=== PATIENT | female | born 2000 | race Hispanic/Latino ===

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

== ENCOUNTER 2020-08-26 11:30 | Emergency (ER) | payer OTHER, SELFPAY ==
--- OUTSIDE RECORDS SUMMARY | 2020-08-26 11:32 | XMS REPORT | Continuity of Care Document ---
:2000 Author Organization [facility] t Address [address] [place] [address] Care Team Providers Name Role Phone Lab, Juanpablo Attending Clinician Unavailable Problems This patient has no known problems. Allergies, Adverse Reactions, Alerts This patient has no known allergies or adverse reactions. Medications This patient has no known medications. Procedures This patient has no known procedures. Encounters Start End Encounter Admission Attending Care Care Encounter Source Date/Time Date/Time Type Type Clinicians Facility Department ID 2020-08-24 2020-08-24 Consulting Engineer Lab, [facility] [id number] 08:15:06 08:44:28 Visit Juanpablo PERIODICALS LIBRARY ASSISTANT [id number] [facility] [id number] MATERNAL [id number] & CHILD [address] [place] [address] Results This patient has no known results.
--- NOTE | 2020-08-26 13:00 | ER ---
Nurse's Notes [facility] Name: Sweta Carter Age: 20 yrs Sex: Female : 2000 Arrival Date: 08/26/2020 Time: 11:34 Bed 17 Private MD: Diagnosis: Acute laryngopharyngitis;Viral infection of unspecified site Presentation: 08/26 11:42 Chief complaint: Sinus congestion, sneezing, and sore throat x 2 days. 8 weeks hb , LMP 06/20. Coronavirus screen: Client presents with at least one sign or symptom that may indicate coronavirus-19. Standard/surgical mask placed on the client. Provider contacted for isolation considerations. Ebola Screen: No symptoms or risks identified at this time. Initial Sepsis Screen: Does the patient meet any 2 criteria? No. Patient's initial sepsis screen is negative. Does the patient have a suspected source of infection? No. Patient's initial sepsis screen is negative. Risk Assessment: Do you want to hurt yourself or someone else? Patient reports no desire to harm self or others. Onset of symptoms was August 25, 2020. 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 - Social history:: Smoking status: Patient denies any tobacco usage or history of. Screenin:15 Abuse screen: Denies threats or abuse. Denies injuries from another. Nutritional kg screening: No deficits noted. Tuberculosis screening: No symptoms or risk factors identified. Fall Risk None identified. No fall in past 12 months (0 pts). No secondary diagnosis (0 pts). No IV (0 pts). Ambulatory Aid- None/Bed Rest/Nurse Assist (0 pts). Gait- Normal/Bed Rest/Wheelchair (0 pts) Mental Status- Oriented to own ability (0 pts). Total Gee Fall Scale indicates No Risk (0-24 pts). Assessment: 12:13 General: Appears in no apparent distress. Behavior is calm, cooperative, appropriate kg for age, quiet. Pain: Complains of pain in neck Pain does not radiate. Pain currently is 7 out of 10 on a pain scale. at worst was 7 out of 10 on a pain scale. level that patient reports is acceptable is 4 out of 10 on a pain scale. Quality of pain is described as burning, aching, tender, Pain began 2-3 days ago. Is continuous. Neuro: No deficits noted. Level of Consciousness is awake, alert, obeys commands, Oriented to person, place, time, situation, Appropriate for age. Cardiovascular: No deficits noted. Respiratory: No deficits noted. Airway is patent Respiratory effort is even, unlabored, Breath sounds are clear bilaterally. GI: No deficits noted. : No deficits noted. EENT: Throat is reddened with gag reflex present, Reports pain in chin when swallowing Pain is 7 out of 10 on a pain scale. since 2 days ago sneezing. Derm: No deficits noted. Musculoskeletal: No deficits noted. Vital Signs: 11:42 BP 124 / 78; Pulse 68; Resp 16; Temp 97.8; Pulse Ox 100% on R/A; Pain 7/10; hb ED Course: 11:34 Patient arrived in ED. mr 11:35 Christian Sanz MD is Attending Physician. kdr 11:44 Triage completed. hb 11:44 Arm band placed on. hb 12:06 Yesenia Martell is Primary Nurse. kg 12:16 Patient has correct armband on for positive identification. Bed in low position. Call kg light in reach. Side rails up X 1. 13:10 No provider procedures requiring assistance completed. Patient did not have IV access kg during this emergency room visit. Administered Medications: No medications were administered Outcome: 13:00 Discharge ordered by . kdr 13:10 Discharged to home ambulatory. kg 13:10 Condition: good 13:10 Discharge instructions given to patient, Instructed on discharge instructions, follow up and referral plans. Demonstrated understanding of instructions, follow-up care. 13:11 Patient left the ED. kg Signatures: Christian Sanz MD MD [facility] Yaz Uribe mr DawnCaroline, RN RN Yesenia Martell kg
--- NOTE | 2020-08-26 13:01 | EDPHYS ---
Physician Documentation [facility] Name: Sweta Carter Age: 20 yrs Sex: Female : 2000 Arrival Date: 08/26/2020 Time: 11:34 Bed 17 Private MD: ED Physician Christian Sanz HPI: 08/26 11:52 This 20 yrs old Female presents to ER via Ambulatory with complaints of 8wks kdr , Sore Throat. 11:52 The patient presents with sore throat, dysphagia, of both solids and liquids. The kdr patient describes throat pain as constant, raw, scratchy. Onset: The symptoms/episode began/occurred gradually, 2 day(s) ago. Severity of symptoms: At their worst the symptoms were mild, in the emergency department the symptoms are unchanged. Modifying factors: The symptoms are alleviated by nothing, the symptoms are aggravated by fluids, foods, swallowing, Patient's oral intake status: good The patient has had contact with sick co-worker(s). Associated signs and symptoms: The patient has no apparent associated signs or symptoms. The patient has experienced a previous episode, approximately 2 years ago. The patient has not recently seen a physician. 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 - Social history:: Smoking status: Patient denies any tobacco usage or history of. ROS: 11:52 Constitutional: Negative for fever, chills, and weight loss, Eyes: Negative for injury, kdr pain, redness, and discharge, Neck: Negative for injury, pain, and swelling, Cardiovascular: Negative for chest pain, palpitations, and edema, Respiratory: Negative for shortness of breath, cough, wheezing, and pleuritic chest pain, Abdomen/GI: Negative for abdominal pain, nausea, vomiting, diarrhea, and constipation, Back: Negative for injury and pain, : Negative for injury, bleeding, discharge, and swelling, MS/Extremity: Negative for injury and deformity, Skin: Negative for injury, rash, and discoloration, Neuro: Negative for headache, weakness, numbness, tingling, and seizure activity. Psych: Negative for depression, anxiety, suicide ideation, homicidal ideation, and hallucinations, Allergy/Immunology: Negative for hives, rash, and allergies, Endocrine: Negative for neck swelling, polydipsia, polyuria, polyphagia, and marked weight changes, Hematologic/Lymphatic: Negative for swollen nodes, abnormal bleeding, and unusual bruising. 11:52 ENT: Positive for difficulty swallowing, Negative for injury or acute deformity, drainage from ear(s), ear pain, foreign body sensation, Gum pain hearing loss, Teeth pain tinnitus, nasal discharge, rhinorrhea, sinus congestion, sinus pain, dental pain, difficulty handling secretions, hoarseness, acute changes. Exam: 11:52 Constitutional: This is a well developed, well nourished patient who is awake, alert, kdr and in no acute distress. Head/Face: Normocephalic, atraumatic. Eyes: Pupils equal round and reactive to light, extra-ocular motions intact. Lids and lashes normal. Conjunctiva and sclera are non-icteric and not injected. Cornea within normal limits. Periorbital areas with no swelling, redness, or edema. Neck: Trachea midline, no thyromegaly or masses palpated, and no cervical lymphadenopathy. Supple, full range of motion without nuchal rigidity, or vertebral point tenderness. No Meningismus. Chest/axilla: Normal chest wall appearance and motion. Nontender with no deformity. No lesions are appreciated. Cardiovascular: Regular rate and rhythm with a normal S1 and S2. No gallops, murmurs, or rubs. Normal PMI, no JVD. No pulse deficits. Respiratory: Lungs have equal breath sounds bilaterally, clear to auscultation and percussion. No rales, rhonchi or wheezes noted. No increased work of breathing, no retractions or nasal flaring. Abdomen/GI: Soft, non-tender, with normal bowel sounds. No distension or tympany. No guarding or rebound. No evidence of tenderness throughout. Back: No spinal tenderness. No costovertebral tenderness. Full range of motion. 11:52 ENT: External ear(s): are unremarkable, Ear canal(s): Mouth: Lips: normal, moist, Oral mucosa: pink and intact, Gums: normal with healthy appearance, Tongue: is normal, Posterior pharynx: Tonsils: enlarged on the left, with erythema, with ulcerations, swelling, that is moderate, erythema. Vital Signs: 11:42 BP 124 / 78; Pulse 68; Resp 16; Temp 97.8; Pulse Ox 100% on R/A; Pain 7/10; hb MDM: 11:52 Data reviewed: vital signs, nurses notes, lab test result(s), radiologic studies. kdr Counseling: I had a detailed discussion with the patient and/or guardian regarding: the historical points, exam findings, and any diagnostic results supporting the discharge/admit diagnosis, lab results, radiology results. 13:00 Patient medically screened. kdr 08/26 11:52 Order name: Rapid Strep; Complete Time: 12:59 kdr 08/26 12:26 Order name: Throat Culture EDMS Administered Medications: No medications were administered Disposition: 08/26/20 13:00 Discharged to Home. Impression: Acute laryngopharyngitis, Viral infection of unspecified site. - Condition is Stable. - Discharge Instructions: Pharyngitis, [id number]. - Medication Reconciliation Form, Thank You Letter form. - Follow up: Private Physician; When: 2 - 3 days; Reason: If symptoms return, Further diagnostic work-up, Recheck today's complaints, Continuance of care, Re-evaluation by your physician. - Problem is new. - Symptoms are unchanged. Signatures: Dispatcher [employer] EDMS Christian Sanz MD MD kdr Caroline Dawn RN RN Yesenia Martell kg Corrections: (The following items were deleted from the chart) 13:11 13:00 08/26/2020 13:00 Discharged to Home. Impression: Acute laryngopharyngitis; Viral kg infection of unspecified site. Condition is Stable. Forms are Medication Reconciliation Form, Thank You Letter, Antibiotic Education, Prescription Opioid Use. Follow up: Private Physician; When: 2 - 3 days; Reason: If symptoms return, Further diagnostic work-up, Recheck today's complaints, Continuance of care, Re-evaluation by your physician. Problem is new. Symptoms are unchanged. kdr
[2020-08-26 13:16] VITALS: BP 124/78; TEMP 97.8; O2SAT 100
== END 2020-08-26 13:11 | disposition home or self-care (01) ==
LOC: ER 11:30
DX: O99.511 Diseases of the respiratory system complicating pregnancy, first trimester (principal); J06.0 Acute laryngopharyngitis; O98.511 Other viral diseases complicating pregnancy, first trimester; B34.9 Viral infection, unspecified; Z3A.08 8 weeks gestation of pregnancy
CPT/HCPCS: 87070; 87081; 99281

== ENCOUNTER 2023-11-19 15:47 | Emergency (ER) | payer OTHER ==
[2023-11-19 17:17] LABS: SARS-CoV-2 Antigen CONTROL BLUE LINE VIS/BG OK; SARS-CoV-2 Antigen Rapid Res Negative (Negative)
--- NOTE | 2023-11-19 18:14 | EDPHYS ---
Physician Documentation [facility] Name: Sweta Carter Age: 23 yrs Sex: Female : 2000 Arrival Date: 11/19/2023 Time: 15:47 Bed DIS2 Private MD: ED Physician Gerber Cardozo HPI: 11/18 16:17 This 23 yrs old Female presents to ER via Ambulatory with complaints of Covid kb Test, Sore Throat. 16:17 Pt is a 23 year old female who presents for covid and flu test. Reports sore throat kb that started this morning and she was exposed to covid and flu by her sister. Denies cough, congestion, fever, bodyaches, chills, shortness of breath. 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 - Infectious Disease History:: Denies. - Social history:: Smoking status: Patient denies any tobacco usage or history of. ROS: 16:17 Constitutional: As per HPI kb Exam: 16:17 Constitutional: This is a well developed, well nourished patient who is awake, alert, kb and in no acute distress. Head/Face: Normocephalic, atraumatic. ENT: Moist Mucous membranes Cardiovascular: Regular rate Respiratory: Respirations even and unlabored. No increased work of breathing. Talking in full sentences Skin: Warm, dry with normal turgor. Normal color. MS/ Extremity: Pulses equal, no cyanosis. Neurovascular intact. Full, normal range of motion. Neuro: Awake and alert, GCS 15, oriented to person, place, time, and situation. Moves all extremities. Normal gait. Vital Signs: 15:58 BP 133 / 93; Pulse 108; Resp 16; Temp 97; Pulse Ox 100% ; dd2 18:18 BP 131 / 75; Pulse 95; Resp 16; Pulse Ox 100% ; bp MDM: 15:54 Patient medically screened. kb 16:17 Differential diagnosis: flu, covid. Data reviewed: vital signs, nurses notes. kb 18:13 I considered the following discharge prescriptions or medication management in the emergency department I discussed and recommended Over The Counter medications, Antibiotics: At this time antibiotics are not recommended, Antivirals: At this time, antivirals are not recommended. Counseling: I had a detailed discussion with the patient and/or guardian regarding the historical points, exam findings, and any diagnostic results supporting the discharge/admit diagnosis, lab results, the need for outpatient follow up, a family practitioner, to return to the emergency department if symptoms worsen or persist or if there are any questions or concerns that arise at home. 11/18 16:00 Order name: Flu; Complete Time: 18:13 kb 11/18 16:00 Order name: SARS-COV-2 Antigen Rapid; Complete Time: 17:26 kb Administered Medications: No medications were administered Disposition Summary: 11/19/23 18:13 Discharge Ordered Notes: Location: Home Condition: Stable kb Diagnosis - Pain in throat kb Followup: kb - With: Emergency Department - When: As needed - Reason: Worsening of condition Followup: kb - With: Private Physician - When: 2 - 3 days - Reason: Recheck today's complaints, Continuance of care, Re-evaluation by your physician Discharge Instructions: - Discharge Summary Sheet kb - Sore Throat, [id number] kb Forms: - Medication Reconciliation Form kb - Antibiotic Education kb - Prescription Opioid Use kb - Patient Portal Instructions kb - Leadership Thank You Letter Signatures: Dispatcher [employer] EDNeyda Freedman, DRUMS TEACHER-C NGHIA-STEPHON Nieto, RN RN dd2 Corrections: (The following items were deleted from the chart) 16:00 16:00 Influenza Screen (A \T\ B)+BA.LAB.BRZ ordered. EDMS EDMS 16:00 16:00 SARS-COV-2 Antigen Rapid+I.LAB.BRZ ordered. EDMS EDMS
--- NOTE | 2023-11-19 18:14 | ER ---
Nurse's Notes [facility] Name: Sweta Carter Age: 23 yrs Sex: Female : 2000 Arrival Date: 11/19/2023 Time: 15:47 Bed DIS2 Private MD: Diagnosis: Pain in throat Presentation: 11/18 15:58 Chief complaint: Patient states: Pt c/o sore throat since this morning. States sister dd2 has covid. Coronavirus screen: sore throat. Ebola Screen: No symptoms or risks identified at this time. Initial Sepsis Screen: Does the patient meet any 2 criteria? No. Patient's initial sepsis screen is negative. Does the patient have a suspected source of infection? No. Patient's initial sepsis screen is negative. Risk Assessment: Do you want to hurt yourself or someone else? Patient reports no desire to harm self or others. Onset of symptoms was November 19, 2023. 15:58 Method Of Arrival: Ambulatory dd2 15:58 Acuity: RUTHIE 4 dd2 Triage Assessment: 16:02 General: Appears in no apparent distress. Behavior is calm, cooperative, appropriate dd2 for age. Pain: Complains of pain in sore throat. EENT: Reports sore throat . 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 - Infectious Disease History:: Denies. - Social history:: Smoking status: Patient denies any tobacco usage or history of. Screenin:15 [facility] ED Fall Risk Assessment (Adult) History of falling in the last 3 months, me1 including since admission No falls in past 3 months (0 pts) Confusion or Disorientation No (0 pts) Intoxicated or Sedated No (0 pts) Impaired Gait No (0 pts) Mobility Assist Device Used No (0 pt) Altered Elimination No (0 pt) Score/Fall Risk Level 0 - 2 = Low Risk Maintained a safe environment, Provided non-skid footwear, Hourly rounding (assess needs \T\ fall precautionary measures) done. Abuse screen: Denies threats or abuse. Nutritional screening: No deficits noted. Tuberculosis screening: No symptoms or risk factors identified. Assessment: 16:15 General: Appears comfortable, ill, well groomed, well developed, well nourished, me1 Behavior is calm, cooperative, appropriate for age, Reports sore throat. Exposed to covid and flu. Pain: Complains of pain in throat Pain does not radiate. Pain currently is 3 out of 10 on a pain scale. Quality of pain is described as tender, Pain began suddenly, Is continuous. Neuro: Level of Consciousness is awake, alert, obeys commands, Oriented to person, place, time, situation, Appropriate for age. Cardiovascular: Patient's skin is warm and dry. Respiratory: Airway is patent Trachea midline Respiratory effort is even, unlabored, Respiratory pattern is regular, symmetrical, Breath sounds are clear bilaterally. GI: No signs and/or symptoms were reported involving the gastrointestinal system. : No signs and/or symptoms were reported regarding the genitourinary system. EENT: Throat is pink. Derm: Skin is intact, is healthy with good turgor, Skin is pink, warm \T\ dry. Musculoskeletal: No signs and/or symptoms reported regarding the musculoskeletal system. Vital Signs: 15:58 BP 133 / 93; Pulse 108; Resp 16; Temp 97; Pulse Ox 100% ; dd2 18:18 BP 131 / 75; Pulse 95; Resp 16; Pulse Ox 100% ; bp ED Course: 15:52 Patient arrived in ED. mr 15:53 Neyda Infante, LISA is [facility]. kb 15:53 Gerber Cardozo MD is Attending Physician. kb 16:02 Triage completed. dd2 16:02 Arm band placed on right wrist. Patient placed in an exam room, on a stretcher, on dd2 pulse oximetry, Patient notified of wait time. 16:15 Patient has correct armband on for positive identification. Bed in low position. Call me1 light in reach. Side rails up X2. Provided Education on: POC. Verbalized understanding. . Client placed on continuous cardiac and pulse oximetry monitoring. NIBP monitoring applied. Pulse ox on. NIBP on. 16:15 No provider procedures requiring assistance completed. Patient did not have IV access me1 during this emergency room visit. 16:23 Carla Lira, RN is Primary Nurse. me1 Administered Medications: No medications were administered Medication: 16:15 VIS not applicable for this client. me1 Outcome: 18:13 Discharge ordered by . gibran 18:18 Discharged to home ambulatory, bp 18:18 Condition: stable 18:18 Discharge instructions given to patient, Instructed on discharge instructions, follow up and referral plans. Demonstrated understanding of instructions, follow-up care, 18:19 Patient left the ED. bp Signatures: Neyda Infante, TINNING MACHINE SET UP OPERATOR-C TINNING MACHINE SET UP OPERATOR-Ckb Yaz Uribe, Reg Reg mr James Henriquez, RN RN bp Carla Lira, RN RN me1 STEPHON FLOWERS RN RN dd2 Corrections: (The following items were deleted from the chart) 16:23 15:58 Chief complaint: Patient states: Pt c/o sore throat since this morning. States me1 sister has covid dd2
[2023-11-19 18:25] VITALS: TEMP 97; O2SAT 100
[2023-11-19 18:26] VITALS: BP 131/75
== END 2023-11-19 18:19 | disposition home or self-care (01) ==
LOC: ER 15:47
DX: R07.0 Pain in throat (principal); Z11.52 Encounter for screening for COVID-19
CPT/HCPCS: 36415; 87804; 87811

== ENCOUNTER 2023-12-24 21:12 | Emergency (ER) | payer OTHER ==
--- OUTSIDE RECORDS SUMMARY | 2023-12-24 21:22 | XMS REPORT | Continuity of Care Document ---
Author Name Unknown Address [address] [facility] [address] [place] [address] [facility] [address] [facility] [address] [place] [address] Care Team Providers Care Stna Name Role Phone PCP, PATIENT DOES NOT HAVE A Primary Care Physic mary Unavailable FRAN BENSON Attending Clinician Unavailable THERESE KINGSLEY Attending Clinician Unavailable THERESE KINGSLEY Attending Clinician Unavailable THERESE KINGSLEY Attending Clinician Unavailable BONITA GANN Attending Clinician UnavailBonita Joaquin CNM Attending Clinician TASHA MARROQUIN Attending Clinician Unavail able JOSELIN PARNELL Attending Clinician Unavailable Risk, Mim-Rqwdy-Ud/High Attending Clinician Unav ailable Joselin Nice Attending Clinician Nestor Naqvi NP Attending Clinician NAVNEET KHAN Attending Clinician Unav ailable NAVNEET KHAN Attending Clinician Unav ailable Ultrasound, Luis Attending Clinician UnavailNavneet Rebolledo MD Attending Clinician + NESTOR NAQVI Attending Clinician Unavail able NESTOR NAQVI Attending Clinician Unavail able Therese Kingsley MD Attending Clinician [phone] Risk, Xfz-Snqjw-Ep/High Attending Clinician Unav ailable [facility] Joselin K Attending Clinician [phone] Yarelis HUERTAS, Bonita Irvin Attending Clinician TESFAYE BOTELLO Attending Clinician Unavailable TESFAYE BOTELLO Attending Clinician Unavailable 1, [facility] Usg Room Attending Clinician Tesfaye Shelby MD Attending Clinician [phone] Akinsipe [facility], Tasha C Attending Clinician + Lab, [facility]samina Attending Clinician Unavailable HELADIO RESENDEZ Attending Clinician Unavailable Visit, [facility] Nurse Attending Clinician Unava ilable Doctor Unassigned, [place] Attending Clinician U navailable Za Carson Attending Clinician [phone] ZA JIANG Attending Clinician UnavailBRANDY Manzano Attending Clinician Unav ailable Delia Bazan MD, Brandy Attending Clinician + MARIA DOLORES MIRANDA Attending Clinician Unavail able EULA TORRES Attending Clinician Unavailable Eula Torres MD Attending Clinician [phone] Provider, [facility] Temp Attending Clinician Stephanie Keenan Carbajal MD Attending Clinician [phone] KEENAN LI Attending Clinician Unavailable Hattie Barragan Attending Clinician UnavailHeladio Ashraf MD Attending Clinician [phone] ALBERTO GUPTA Attending Clinician UnavailAlberto Ferreira MD Attending Clinician [phone] 3, [facility] Usg Room Attending Clinician UnavailNAVNEET Rebolledo Admitting Clinician Unav ailNAVNEET Hussein Admitting Clinician Unav ailable BRANDY MELISSA Admitting Clinician Unav ailable Delia Bazan MD, Brandy Admitting Clinician + EULA TORRES Admitting Clinician Unavailable Eula Torres MD Admitting Clinician [phone] Payers Payer Name Policy Type Policy Number Effective Date Expirati on Date Source N-Sided [facility] JOSE MCDANIEL [id number] 2023 00:00:00 Problems Condition Name Condition Details Condition Category Status Onset Date Resolution Date Last Treatment Date Treating Clinician Comments Source Chronic hypertensi on affecting Chronic hypertensi on affecting Disease Active 6-18 00:00: 00 [facility] Pregestati onal diabetes mellitus, 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 Failed 3hr gtt Order echo, q4wk usg starting at 26 weeks when medicaid approved [facility] Supervisio n of high-risk Supervisio n of high-risk Disease Active 3- 00:00: 00 [facility] History of pre-eclamp alberta History of pre-eclamp [place]ber[place] Disease Active 3-22 00:00: 00 [facility] Multiparit y Multiparit y Disease Active 3-22 00:00: 00 [facility] fever fever Disease Active 2020-04 2-02 00:00: 00 [facility] Obesity (BMI 30-39.9) Obesity (BMI 30-39.9) Disease Active 2020-04-24 00:00: 00 [facility] Obesity in Obesity in Disease Active 2020-04 124 00:00: 00 [facility] Obesity affecting Obesity affecting Disease Active 2020-0424 00:00: 00 [facility] GDM (gestation al diabetes mellitus) GDM (gestation al diabetes mellitus) Disease Active 9-20 00:00: 00 [facility] 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 Sister, had genetic counselin g 2020, declines this [facility] Lipoma Lipoma Disease Active 2014- 1-15 00:00: 00 [facility] Polyhydram nios, antepartum complicati on Polyhydram nios, antepartum complicati on Disease Resolve d 8-13 00:00: 00 2023-11-26 00:00:00 2023-11-26 16:52:22 [facility] Glucose tolerance test abnormal Glucose tolerance test abnormal Disease Resolve d 3-25 00:00: 00 2023-08-08 00:00:00 2023-08-08 10:05:50 Overview: Formattin g of this note might be different from the original. Pending 3hr gtt [facility] History of gestationa l diabetes mellitus (GDM) History of gestationa l diabetes mellitus (GDM) Disease Resolve d 9-20 00:00: 00 2023-08-08 00:00:00 2023-08-08 10:05:52 [facility] Other general counseling and advice for contracept amee management Other general counseling and advice for contracept amee management Disease Resolve d 1-12 00:00: 00 2023-06-27 00:00:00 2023-06-27 10:45:09 [facility] Severe anemia Severe anemia Disease Resolve d 2020-04 2-03 00:00: 00 2023-06-27 00:00:00 2023-06-27 10:45:04 Overview: Formattin g of this note might be different from the original. See note from 03/09/21. Repeat CBC for 0800 to confirm Hgb < 7 so that patient can decide if she desires transfusi on. [facility] Retained placenta or membranes Retained placenta or membranes Disease Resolve d 2020-04 2-02 00:00: 00 2023-06-27 00:00:00 2023-06-27 10:45:07 [facility] fever fever Disease Resolve d 2020-04 2-02 00:00: 00 2023-06-27 00:00:00 2023-06-27 10:45:08 [facility] (spontaneo us vaginal delivery) (spontaneo us vaginal delivery) Disease Resolve d 2020-04 2-02 00:00: 00 2021-03-28 00:00:00 2021-03-28 11:03:13 [facility] Single live Single live Disease Resolve d 2020-04 2-02 00:00: 00 2021-03-28 00:00:00 2021-03-28 11:03:15 [facility] Acute blood loss anemia Acute blood loss anemia Disease Resolve d 2020-04 2-02 00:00: 00 2021-03-28 00:00:00 2021-03-28 11:04:22 [facility] hemorrhage hemorrhage Disease Resolve d 2020-04 2- 00:00: 00 2021-03-28 00:00:00 2021-03-28 11:04:26 [facility] Obstetrica l laceration Obstetrica l laceration Disease Resolve d 2020-04 2-02 00:00: 00 2021-03-28 00:00:00 2021-03-28 11:04:24 [facility] Preeclamps ia Preeclamps ia Disease Resolve d 2020-04 1 00:00: 00 2021-03-28 00:00:00 2021-03-28 11:33:44 [facility] 37 weeks gestation of 37 weeks gestation of Disease Resolve d 2020-04 1 00:00: 00 2021-03-28 00:00:00 2021-03-28 11:02:42 [facility] 36 weeks gestation of 36 weeks gestation of Disease Resolve d 2020-0424 00:00: 00 2021-03-28 00:00:00 2021-03-28 11:02:41 [facility] Insufficie nt care in third trimester Insufficie nt care in third trimester Disease Resolve d 2020-04 1-09 00:00: 00 2021-03-28 00:00:00 2021-03-28 11:04:12 [facility] Elevated blood pressure reading without diagnosis of hypertensi on Elevated blood pressure reading without diagnosis of hypertensi on Disease Resolve d 2020-0 7-05 00:00: 00 2021-03-28 00:00:00 2021-03-28 11:04:18 [facility] Supervisio n of high-risk Supervisio n of high-risk Disease Resolve d 0 5-13 00:00: 00 2021-03-28 00:00:00 2021-03-28 11:03:14 [facility] Obesity in Obesity in Disease Resolve d 2020-0 5-13 00:00: 00 2021-03-28 00:00:00 2021-03-28 11:04:10 [facility] Abnormal maternal glucose tolerance, antepartum Abnormal maternal glucose tolerance, antepartum Disease Resolve d 0 5-14 00:00: 00 2021-02-28 00:00:00 2021-02-28 09:28:50 [facility] Allergies, Adverse Reactions, Alerts Allergy Name Allergy Type Status Severity Reaction(s) Onset Date Inactive Date Treating Clinician Comments Source NO KNOWN ALLERGIE S Drug Class Active [facility] Social History Social Habit Start Date Stop Date Quantity Comments Source ASSERTION 2023-05-02 00:00:00 [facility] Exposure to SARS-CoV-2 (event) Not sure [facility] Alcoholic beverage intake 2023-12-23 00:00:00 2023-12-23 00:00:00 Current non-drinker of alcohol (finding) [facility] Alcohol intake 2023-08-08 00:00:00 2023-08-08 00:00:00 Current non-drinker of alcohol (finding) [facility] History of Social function 2023-06-27 00:00:00 2023-06-27 00:00:00 [facility] Tobacco use and exposure 2023-06-27 00:00:00 2023-06-27 00:00:00 Smokeless tobacco non-user [facility] Tobacco Comment 2023-06-27 00:00:00 2023-06-27 00:00:00 No smoke exposure [facility] Sex assigned at 2000 00:00:00 2000 00:00:00 [facility] Smoking Status Start Date Stop Date Source Never smoked tobacco [facility] Medications Ordered Medication Name Filled Medication Name Start Date Stop Date Current Medication? Ordering Clinician Indication Dosage Frequency Signature (SIG) Comments Components Source Iron Fum & P-FA-Vit B & C No.9 (INTEGRA PLUS) 125 mg iron- 1 mg Cap 12-22 00:00: 00 Yes [id number] 1{capsu le} Take 1 capsule by mouth in the morning. [facility] insulin regular human (NOVOLIN R REGULAR U100 INSULIN) 100 unit/mL injection 11-12 00:00: 00 Yes [id number] inject 16 Units under the skin daily with breakfast AND 12 Units with evening meal. [facility] insulin NPH (NOVOLIN N NPH U-100 INSULIN) 100 unit/mL injection 11-12 00:00: 00 Yes [id number] 32U inject 32 Units under the skin daily with breakfast. [facility] Insulin Syringe-Nee dle U-100 1 mL 31 gauge x 5/16 Syrg 11-12 00:00: 00 Yes [id number] Use as directed [facility] aspirin 81 mg EC tablet 10-07 00:00: 00 04-06 05:59 :00 Yes [id number] 81mg Take 1 tablet by mouth in the morning for 180 days. [facility] diphenhydrA MINE (BENADRYL) tablet 25 mg 09-09 02:01: 00 09-09 02:17 :00 No 25mg 25 mg, Oral, ONCE, 1 dose, On Fri09/09/23 at 2115, Routine [facility] metoclopram godfrey HCl (REGLAN) tablet 10 mg 09-09 02:01: 00 09-09 02:17 :00 No 10mg 10 mg, Oral, ONCE, 1 dose, On Fri09/09/23 at 2115, Routine [facility] acetaminoph en (TYLENOL) tablet 1,000 mg 09-09 01:30: 00 09-09 01:34 :00 No 1000mg 1,000 mg, Oral, ONCE, 1 dose, On Fri09/09/23 at 2030, Routine [facility] metoclopram godfrey HCl 5 mg tablet 09-08 00:00: 00 Yes [id number] 5mg Take 1 tablet by mouth every 6 (six) hours as needed (Headache) . [facility] aspirin 81 mg EC tablet 08-07 00:00: 00 Yes [id number] 9100 81mg Take 1 tablet by mouth in the morning. [facility] Blood-Gluco se Meter (FREESTYLE LITE METER) Kit 07-06 00:00: 00 Yes [id number] Check blood glucose 4x daily [facility] lancets (FREESTYLE LANCETS) 28 gauge Misc 07-06 00:00: 00 Yes [id number] Check glucose 4x daily [facility] blood sugar diagnostic (FREESTYLE LITE STRIPS) strip 07-06 00:00: 00 Yes [id number] Check blood glucose 4x daily [facility] proMETHazin e 25 mg tablet 06-26 00:00: 00 Yes [id number] 25mg Take 1 tablet by mouth every 6 (six) hours as needed for Nausea and Vomiting (N/V). [facility] aka49-xqqm- folic acid 29 mg iron- 1 mg per tablet 06-26 00:00: 00 Yes [id number] 1{tbl} Take 1 tablet by mouth in the morning. [facility] ferrous sulfate 325 mg (65 mg iron) tablet 2020-04 00:00: 00 Yes [id number] 325mg Take 1 tablet by mouth 3 (three) times daily with meals. [facility] Immunizations Ordered Immunization Name Filled Immunization Name Date Status Comments Source TDAP 2021-01-11 00:00:00 Completed [facility] HPV 2011-09-23 00:00:00 Completed [facility] Meningococcal Vaccine 2011-09-23 00:00:00 Completed [facility] TDAP 2011-09-23 00:00:00 Completed [facility] HPV 2011-05-27 00:00:00 Completed [facility] Influenza Virus Vaccine 2011-05-27 00:00:00 Completed [facility] HPV 2010-03-14 00:00:00 Completed [facility] Influenza Virus Vaccine 2010-03-14 00:00:00 Completed [facility] Varicella (varivax)(chicken pox) 2006-07-07 00:00:00 Completed [facility] HEPATITIS A 2005-11-21 00:00:00 Completed [facility] HEPATITIS A 2004-12-25 00:00:00 Completed [facility] DTAP 2004-10-09 00:00:00 Completed [facility] MMR 2004-10-09 00:00:00 Completed [facility] Polio (IPV/OPV) 2004-10-09 00:00:00 Completed [facility] Hep B, Adol or Pedi Dosage 2002-05-28 00:00:00 Completed [facility] Pneumococcal 7 Conjugate, PCV7 (Prevnar7) 2002-05-28 00:00:00 Completed [facility] DTAP 2001-09-22 00:00:00 Completed [facility] HIB 4 Dose Schedule 2001-09-22 00:00:00 Completed [facility] MMR 2001-06-24 00:00:00 Completed [facility] Polio (IPV/OPV) 2001-06-24 00:00:00 Completed [facility] Varicella (varivax)(chicken pox) 2001-06-24 00:00:00 Completed [facility] DTAP 2000 00:00:00 Completed [facility] HIB 4 Dose Schedule 2000 00:00:00 Completed [facility] Hep B, Adol or Pedi Dosage 2000 00:00:00 Completed [facility] Pneumococcal 7 Conjugate, PCV7 (Prevnar7) 2000 00:00:00 Completed [facility] DTAP 2000 00:00:00 Completed [facility] HIB 4 Dose Schedule 2000 00:00:00 Completed [facility] Pneumococcal 7 Conjugate, PCV7 (Prevnar7) 2000 00:00:00 Completed [facility] Polio (IPV/OPV) 2000 00:00:00 Completed [facility] DTAP 2000 00:00:00 Completed [facility] HIB 4 Dose Schedule 2000 00:00:00 Completed [facility] Pneumococcal 7 Conjugate, PCV7 (Prevnar7) 2000 00:00:00 Completed [facility] Polio (IPV/OPV) 2000 00:00:00 Completed [facility] Hep B, Adol or Pedi Dosage 2000 00:00:00 Completed [facility] Hep B, Adol or Pedi Dosage Unknown Completed [facility] HPV Unknown Completed [facility] HPV Unknown Completed [facility] Influenza Virus Vaccine Unknown Completed [facility] Influenza Virus Vaccine Unknown Completed [facility] MMR Unknown Completed [facility] MMR Unknown Completed [facility] Pneumococcal 7 Conjugate, PCV7 (Prevnar7) Unknown Completed [facility] Pneumococcal 7 Conjugate, PCV7 (Prevnar7) Unknown Completed [facility] Pneumococcal 7 Conjugate, PCV7 (Prevnar7) Unknown Completed [facility] Pneumococcal 7 Conjugate, PCV7 (Prevnar7) Unknown Completed [facility] Polio (IPV/OPV) Unknown Completed [facility] Polio (IPV/OPV) Unknown Completed [facility] Polio (IPV/OPV) Unknown Completed [facility] Polio (IPV/OPV) Unknown Completed [facility] Varicella (varivax)(chicken pox) Unknown Completed [facility] TDAP Unknown Completed [facility] Varicella (varivax)(chicken pox) Unknown Completed [facility] HPV Unknown Completed [facility] Meningococcal Vaccine Unknown Completed [facility] TDAP Unknown Completed [facility] DTAP Unknown Completed [facility] DTAP Unknown Completed [facility] DTAP Unknown Completed [facility] DTAP Unknown Completed [facility] DTAP Unknown Completed [facility] HIB 4 Dose Schedule Unknown Completed [facility] HIB 4 Dose Schedule Unknown Completed [facility] HIB 4 Dose Schedule Unknown Completed [facility] HIB 4 Dose Schedule Unknown Completed [facility] HEPATITIS A Unknown [facility] HEPATITIS A Unknown Completed [facility] Hep B, Adol or Pedi Dosage Unknown Completed [facility] Hep B, Adol or Pedi Dosage Unknown Completed [facility] Hep B, Adol or Pedi Dosage Unknown Completed [facility] HPV Unknown Completed [facility] HPV Unknown Completed [facility] Influenza Virus Vaccine Unknown Completed [facility] Influenza Virus Vaccine Unknown Completed [facility] MMR Unknown Completed [facility] MMR Unknown Completed [facility] Pneumococcal 7 Conjugate, PCV7 (Prevnar7) Unknown Completed [facility] Pneumococcal 7 Conjugate, PCV7 (Prevnar7) Unknown Completed [facility] Pneumococcal 7 Conjugate, PCV7 (Prevnar7) Unknown Completed [facility] Pneumococcal 7 Conjugate, PCV7 (Prevnar7) Unknown Completed [facility] Polio (IPV/OPV) Unknown Completed [facility] Polio (IPV/OPV) Unknown Completed [facility] Polio (IPV/OPV) Unknown Completed [facility] Polio (IPV/OPV) Unknown Completed [facility] Varicella (varivax)(chicken pox) Unknown Completed [facility] TDAP Unknown Completed [facility] DTAP Unknown Completed [facility] DTAP Unknown Completed [facility] DTAP Unknown Completed [facility] DTAP Unknown Completed [facility] DTAP Unknown Completed [facility] HIB 4 Dose Schedule Unknown Completed [facility] HIB 4 Dose Schedule Unknown Completed [facility] HIB 4 Dose Schedule Unknown Completed [facility] HIB 4 Dose Schedule Unknown Completed [facility] HEPATITIS A Unknown [facility] HEPATITIS A Unknown Completed [facility] Hep B, Adol or Pedi Dosage Unknown Completed [facility] Hep B, Adol or Pedi Dosage Unknown Completed [facility] Hep B, Adol or Pedi Dosage Unknown Completed [facility] HPV Unknown Completed [facility] HPV Unknown Completed [facility] Influenza Virus Vaccine Unknown Completed [facility] Influenza Virus Vaccine Unknown Completed [facility] MMR Unknown Completed [facility] MMR Unknown Completed [facility] Pneumococcal 7 Conjugate, PCV7 (Prevnar7) Unknown Completed [facility] Pneumococcal 7 Conjugate, PCV7 (Prevnar7) Unknown Completed [facility] Pneumococcal 7 Conjugate, PCV7 (Prevnar7) Unknown Completed [facility] Pneumococcal 7 Conjugate, PCV7 (Prevnar7) Unknown Completed [facility] Polio (IPV/OPV) Unknown Completed [facility] Polio (IPV/OPV) Unknown Completed [facility] Polio (IPV/OPV) Unknown Completed [facility] Polio (IPV/OPV) Unknown Completed [facility] Varicella (varivax)(chicken pox) Unknown Completed [facility] TDAP Unknown Completed [facility] DTAP Unknown Completed [facility] DTAP Unknown Completed [facility] DTAP Unknown Completed [facility] DTAP Unknown Completed [facility] DTAP Unknown Completed [facility] HIB 4 Dose Schedule Unknown Completed [facility] HIB 4 Dose Schedule Unknown Completed [facility] HIB 4 Dose Schedule Unknown Completed [facility] HIB 4 Dose Schedule Unknown Completed [facility] HEPATITIS A Unknown Completed [facility] HEPATITIS A Unknown Completed [facility] Hep B, Adol or Pedi Dosage Unknown Completed [facility] Hep B, Adol or Pedi Dosage Unknown Completed [facility] Hep B, Adol or Pedi Dosage Unknown Completed [facility] HPV Unknown Completed [facility] HPV Unknown Completed [facility] Influenza Virus Vaccine Unknown Completed [facility] Influenza Virus Vaccine Unknown Completed [facility] MMR Unknown Completed [facility] MMR Unknown Completed [facility] Pneumococcal 7 Conjugate, PCV7 (Prevnar7) Unknown Completed [facility] Pneumococcal 7 Conjugate, PCV7 (Prevnar7) Unknown Completed [facility] Pneumococcal 7 Conjugate, PCV7 (Prevnar7) Unknown Completed [facility] Pneumococcal 7 Conjugate, PCV7 (Prevnar7) Unknown Completed [facility] Polio (IPV/OPV) Unknown Completed [facility] Polio (IPV/OPV) Unknown Completed [facility] Polio (IPV/OPV) Unknown Completed [facility] Polio (IPV/OPV) Unknown Completed [facility] Varicella (varivax)(chicken pox) Unknown Completed [facility] TDAP Unknown Completed [facility] DTAP Unknown Completed [facility] DTAP Unknown Completed [facility] DTAP Unknown Completed [facility] DTAP Unknown Completed [facility] DTAP Unknown Completed [facility] HIB 4 Dose Schedule Unknown Completed [facility] HIB 4 Dose Schedule Unknown Completed [facility] HIB 4 Dose Schedule Unknown Completed [facility] HIB 4 Dose Schedule Unknown Completed [facility] HEPATITIS A Unknown Completed [facility] HEPATITIS A Unknown Completed [facility] Hep B, Adol or Pedi Dosage Unknown [facility] [facility], Adol or Pedi Dosage Unknown Completed [facility] Hep B, Adol or Pedi Dosage Unknown Completed [facility] HPV Unknown Completed [facility] HPV Unknown Completed [facility] Influenza Virus Vaccine Unknown Completed [facility] Influenza Virus Vaccine Unknown Completed [facility] MMR Unknown Completed [facility] MMR Unknown Completed [facility] Pneumococcal 7 Conjugate, PCV7 (Prevnar7) Unknown Completed [facility] Pneumococcal 7 Conjugate, PCV7 (Prevnar7) Unknown Completed [facility] Pneumococcal 7 Conjugate, PCV7 (Prevnar7) Unknown Completed [facility] Pneumococcal 7 Conjugate, PCV7 (Prevnar7) Unknown Completed [facility] Polio (IPV/OPV) Unknown Completed [facility] Polio (IPV/OPV) Unknown Completed [facility] Polio (IPV/OPV) Unknown Completed [facility] Polio (IPV/OPV) Unknown Completed [facility] Varicella (varivax)(chicken pox) Unknown Completed [facility] TDAP Unknown Completed [facility] DTAP Unknown Completed [facility] DTAP Unknown Completed [facility] DTAP Unknown Completed [facility] DTAP Unknown Completed [facility] DTAP Unknown Completed [facility] HIB 4 Dose Schedule Unknown Completed [facility] HIB 4 Dose Schedule Unknown Completed [facility] HIB 4 Dose Schedule Unknown Completed [facility] HIB 4 Dose Schedule Unknown Completed [facility] HEPATITIS A Unknown Completed [facility] HEPATITIS A Unknown Completed [facility] Hep B, Adol or Pedi Dosage Unknown Completed [facility] Hep B, Adol or Pedi Dosage Unknown Completed [facility] Hep B, Adol or Pedi Dosage Unknown Completed [facility] HPV Unknown Completed [facility] HPV Unknown Completed [facility] Influenza Virus Vaccine Unknown Completed [facility] Influenza Virus Vaccine Unknown Completed [facility] MMR Unknown Completed [facility] MMR Unknown Completed [facility] Pneumococcal 7 Conjugate, PCV7 (Prevnar7) Unknown Completed [facility] Pneumococcal 7 Conjugate, PCV7 (Prevnar7) Unknown Completed [facility] Pneumococcal 7 Conjugate, PCV7 (Prevnar7) Unknown Completed [facility] Pneumococcal 7 Conjugate, PCV7 (Prevnar7) Unknown Completed [facility] Polio (IPV/OPV) Unknown Completed [facility] Polio (IPV/OPV) Unknown Completed [facility] Polio (IPV/OPV) Unknown Completed [facility] Polio (IPV/OPV) Unknown Completed [facility] Varicella (varivax)(chicken pox) Unknown Completed [facility] TDAP Unknown Completed [facility] DTAP Unknown Completed [facility] DTAP Unknown Completed [facility] DTAP Unknown Completed [facility] DTAP Unknown Completed [facility] DTAP Unknown Completed [facility] HIB 4 Dose Schedule Unknown Completed [facility] HIB 4 Dose Schedule Unknown Completed [facility] HIB 4 Dose Schedule Unknown Completed [facility] HIB 4 Dose Schedule Unknown Completed [facility] HEPATITIS A Unknown Completed [facility] HEPATITIS A Unknown Completed [facility] Hep B, Adol or Pedi Dosage Unknown Completed [facility] Hep B, Adol or Pedi Dosage Unknown Completed [facility] Hep B, Adol or Pedi Dosage Unknown Completed [facility] HPV Unknown Completed [facility] HPV Unknown Completed [facility] Influenza Virus Vaccine Unknown Completed [facility] Influenza Virus Vaccine Unknown Completed [facility] MMR Unknown Completed [facility] MMR Unknown Completed [facility] Pneumococcal 7 Conjugate, PCV7 (Prevnar7) Unknown Completed [facility] Pneumococcal 7 Conjugate, PCV7 (Prevnar7) Unknown Completed [facility] Pneumococcal 7 Conjugate, PCV7 (Prevnar7) Unknown Completed [facility] Pneumococcal 7 Conjugate, PCV7 (Prevnar7) Unknown Completed [facility] Polio (IPV/OPV) Unknown Completed [facility] Polio (IPV/OPV) Unknown Completed [facility] Polio (IPV/OPV) Unknown Completed [facility] Polio (IPV/OPV) Unknown Completed [facility] Varicella (varivax)(chicken pox) Unknown Completed [facility] TDAP Unknown Completed [facility] Varicella (varivax)(chicken pox) Unknown Completed [facility] HPV Unknown Completed [facility] Meningococcal Vaccine Unknown Completed [facility] TDAP Unknown Completed [facility] DTAP Unknown Completed [facility] DTAP Unknown Completed [facility] DTAP Unknown Completed [facility] DTAP Unknown Completed [facility] DTAP Unknown Completed [facility] HIB 4 Dose Schedule Unknown Completed [facility] HIB 4 Dose Schedule Unknown Completed [facility] HIB 4 Dose Schedule Unknown Completed [facility] HIB 4 Dose Schedule Unknown Completed [facility] HEPATITIS A Unknown Completed [facility] HEPATITIS A Unknown Completed [facility] Hep B, Adol or Pedi Dosage Unknown Completed [facility] Hep B, Adol or Pedi Dosage Unknown Completed [facility] Hep B, Adol or Pedi Dosage Unknown Completed [facility] HPV Unknown Completed [facility] HPV Unknown Completed [facility] Influenza Virus Vaccine Unknown Completed [facility] Influenza Virus Vaccine Unknown Completed [facility] MMR Unknown Completed [facility] MMR Unknown Completed [facility] Pneumococcal 7 Conjugate, PCV7 (Prevnar7) Unknown Completed [facility] Pneumococcal 7 Conjugate, PCV7 (Prevnar7) Unknown Completed [facility] Pneumococcal 7 Conjugate, PCV7 (Prevnar7) Unknown Completed [facility] Pneumococcal 7 Conjugate, PCV7 (Prevnar7) Unknown Completed [facility] Polio (IPV/OPV) Unknown Completed [facility] Polio (IPV/OPV) Unknown Completed [facility] Polio (IPV/OPV) Unknown Completed [facility] Polio (IPV/OPV) Unknown Completed [facility] Varicella (varivax)(chicken pox) Unknown Completed [facility] TDAP Unknown Completed [facility] DTAP Unknown Completed [facility] DTAP Unknown Completed [facility] DTAP Unknown Completed [facility] DTAP Unknown Completed [facility] DTAP Unknown Completed [facility] HIB 4 Dose Schedule Unknown Completed [facility] HIB 4 Dose Schedule Unknown Completed [facility] HIB 4 Dose Schedule Unknown Completed [facility] HIB 4 Dose Schedule Unknown Completed [facility] HEPATITIS A Unknown Completed [facility] HEPATITIS A Unknown Completed [facility] Hep B, Adol or Pedi Dosage Unknown Completed [facility] Hep B, Adol or Pedi Dosage Unknown Completed [facility] Hep B, Adol or Pedi Dosage Unknown Completed [facility] HPV Unknown Completed [facility] HPV Unknown Completed [facility] Influenza Virus Vaccine Unknown Completed [facility] Influenza Virus Vaccine Unknown Completed [facility] MMR Unknown Completed [facility] MMR Unknown Completed [facility] Pneumococcal 7 Conjugate, PCV7 (Prevnar7) Unknown Completed [facility] Pneumococcal 7 Conjugate, PCV7 (Prevnar7) Unknown Completed [facility] Pneumococcal 7 Conjugate, PCV7 (Prevnar7) Unknown Completed [facility] Pneumococcal 7 Conjugate, PCV7 (Prevnar7) Unknown Completed [facility] Polio (IPV/OPV) Unknown Completed [facility] Polio (IPV/OPV) Unknown Completed [facility] Polio (IPV/OPV) Unknown Completed [facility] Polio (IPV/OPV) Unknown Completed [facility] Varicella (varivax)(chicken pox) Unknown Completed [facility] TDAP Unknown Completed [facility] DTAP Unknown Completed [facility] DTAP Unknown Completed [facility] DTAP Unknown Completed [facility] DTAP Unknown Completed [facility] DTAP Unknown Completed [facility] HIB 4 Dose Schedule Unknown Completed [facility] HIB 4 Dose Schedule Unknown Completed [facility] HIB 4 Dose Schedule Unknown Completed [facility] HIB 4 Dose Schedule Unknown Completed [facility] HEPATITIS A Unknown Com[facility] HEPATITIS A Unknown Com[facility] Hep B, Adol or Pedi Dosage Unknown Completed [facility] Hep B, Adol or Pedi Dosage Unknown Completed [facility] Hep B, Adol or Pedi Dosage Unknown Completed [facility] HPV Unknown Completed [facility] HPV Unknown Completed [facility] Influenza Virus Vaccine Unknown Completed [facility] Influenza Virus Vaccine Unknown Completed [facility] MMR Unknown Completed [facility] MMR Unknown Completed [facility] Pneumococcal 7 Conjugate, PCV7 (Prevnar7) Unknown Completed [facility] Pneumococcal 7 Conjugate, PCV7 (Prevnar7) Unknown Completed [facility] Pneumococcal 7 Conjugate, PCV7 (Prevnar7) Unknown Completed [facility] Pneumococcal 7 Conjugate, PCV7 (Prevnar7) Unknown Completed [facility] Polio (IPV/OPV) Unknown Completed [facility] Polio (IPV/OPV) Unknown Completed [facility] Polio (IPV/OPV) Unknown Completed [facility] Polio (IPV/OPV) Unknown Completed [facility] Varicella (varivax)(chicken pox) Unknown Completed [facility] TDAP Unknown Completed [facility] DTAP Unknown Completed [facility] DTAP Unknown Completed [facility] DTAP Unknown Completed [facility] DTAP Unknown Completed [facility] DTAP Unknown Completed [facility] HIB 4 Dose Schedule Unknown Completed [facility] HIB 4 Dose Schedule Unknown Completed [facility] HIB 4 Dose Schedule Unknown Completed [facility] HIB 4 Dose Schedule Unknown Completed [facility] HEPATITIS A Unknown Completed [facility] HEPATITIS A Unknown Com[facility] Hep B, Adol or Pedi Dosage Unknown Completed [facility] Hep B, Adol or Pedi Dosage Unknown Completed [facility] Hep B, Adol or Pedi Dosage Unknown Completed [facility] HPV Unknown Completed [facility] HPV Unknown Completed [facility] Influenza Virus Vaccine Unknown Completed [facility] Influenza Virus Vaccine Unknown Completed [facility] MMR Unknown Completed [facility] MMR Unknown Completed [facility] Pneumococcal 7 Conjugate, PCV7 (Prevnar7) Unknown Completed [facility] Pneumococcal 7 Conjugate, PCV7 (Prevnar7) Unknown Completed [facility] Pneumococcal 7 Conjugate, PCV7 (Prevnar7) Unknown Completed [facility] Pneumococcal 7 Conjugate, PCV7 (Prevnar7) Unknown Completed [facility] Polio (IPV/OPV) Unknown Completed [facility] Polio (IPV/OPV) Unknown Completed [facility] Polio (IPV/OPV) Unknown Completed [facility] Polio (IPV/OPV) Unknown Completed [facility] Varicella (varivax)(chicken pox) Unknown Completed [facility] TDAP Unknown Completed [facility] DTAP Unknown Completed [facility] DTAP Unknown Completed [facility] DTAP Unknown Completed [facility] DTAP Unknown Completed [facility] DTAP Unknown Completed [facility] HIB 4 Dose Schedule Unknown Completed [facility] HIB 4 Dose Schedule Unknown Completed [facility] HIB 4 Dose Schedule Unknown Completed [facility] HIB 4 Dose Schedule Unknown Completed [facility] HEPATITIS A Unknown Completed [facility] HEPATITIS A Unknown Completed [facility] Hep B, Adol or Pedi Dosage Unknown Completed [facility] Hep B, Adol or Pedi Dosage Unknown Completed [facility] Hep B, Adol or Pedi Dosage Unknown Completed [facility] HPV Unknown Completed [facility] HPV Unknown Completed [facility] Influenza Virus Vaccine Unknown Completed [facility] Influenza Virus Vaccine Unknown Completed [facility] MMR Unknown Completed [facility] MMR Unknown Completed [facility] Pneumococcal 7 Conjugate, PCV7 (Prevnar7) Unknown Completed [facility] Pneumococcal 7 Conjugate, PCV7 (Prevnar7) Unknown Completed [facility] Pneumococcal 7 Conjugate, PCV7 (Prevnar7) Unknown Completed [facility] Pneumococcal 7 Conjugate, PCV7 (Prevnar7) Unknown Completed [facility] Polio (IPV/OPV) Unknown Completed [facility] Polio (IPV/OPV) Unknown Completed [facility] Polio (IPV/OPV) Unknown Completed [facility] Polio (IPV/OPV) Unknown Completed [facility] Varicella (varivax)(chicken pox) Unknown Completed [facility] TDAP Unknown Completed [facility] DTAP Unknown Completed [facility] DTAP Unknown Completed [facility] DTAP Unknown Completed [facility] DTAP Unknown Completed [facility] DTAP Unknown Completed [facility] HIB 4 Dose Schedule Unknown Completed [facility] HIB 4 Dose Schedule Unknown Completed [facility] HIB 4 Dose Schedule Unknown Completed [facility] HIB 4 Dose Schedule Unknown Completed [facility] HEPATITIS A Unknown Completed [facility] HEPATITIS A Unknown Completed [facility] Hep B, Adol or Pedi Dosage Unknown Completed [facility] Hep B, Adol or Pedi Dosage Unknown Completed [facility] Hep B, Adol or Pedi Dosage Unknown Completed [facility] HPV Unknown Completed [facility] HPV Unknown Completed [facility] Influenza Virus Vaccine Unknown Completed [facility] Influenza Virus Vaccine Unknown Completed [facility] MMR Unknown Completed [facility] MMR Unknown Completed [facility] Pneumococcal 7 Conjugate, PCV7 (Prevnar7) Unknown Completed [facility] Pneumococcal 7 Conjugate, PCV7 (Prevnar7) Unknown Completed [facility] Pneumococcal 7 Conjugate, PCV7 (Prevnar7) Unknown Completed [facility] Pneumococcal 7 Conjugate, PCV7 (Prevnar7) Unknown Completed [facility] Polio (IPV/OPV) Unknown Completed [facility] Polio (IPV/OPV) Unknown Completed [facility] Polio (IPV/OPV) Unknown Completed [facility] Polio (IPV/OPV) Unknown Completed [facility] Varicella (varivax)(chicken pox) Unknown Completed [facility] TDAP Unknown Completed [facility] DTAP Unknown Completed [facility] DTAP Unknown Completed [facility] DTAP Unknown Completed [facility] DTAP Unknown Completed [facility] DTAP Unknown Completed [facility] HIB 4 Dose Schedule Unknown Completed [facility] HIB 4 Dose Schedule Unknown Completed [facility] HIB 4 Dose Schedule Unknown Completed [facility] HIB 4 Dose Schedule Unknown Completed [facility] HEPATITIS A Unknown Completed [facility] HEPATITIS A Unknown Com[facility] Hep B, Adol or Pedi Dosage Unknown Completed [facility] Hep B, Adol or Pedi Dosage Unknown Completed [facility] Hep B, Adol or Pedi Dosage Unknown Completed [facility] HPV Unknown Completed [facility] HPV Unknown Completed [facility] Influenza Virus Vaccine Unknown Completed [facility] Influenza Virus Vaccine Unknown Completed [facility] MMR Unknown Completed [facility] MMR Unknown Completed [facility] Pneumococcal 7 Conjugate, PCV7 (Prevnar7) Unknown Completed [facility] Pneumococcal 7 Conjugate, PCV7 (Prevnar7) Unknown Completed [facility] Pneumococcal 7 Conjugate, PCV7 (Prevnar7) Unknown Completed [facility] Pneumococcal 7 Conjugate, PCV7 (Prevnar7) Unknown Completed [facility] Polio (IPV/OPV) Unknown Completed [facility] Polio (IPV/OPV) Unknown Completed [facility] Polio (IPV/OPV) Unknown Completed [facility] Polio (IPV/OPV) Unknown Completed [facility] Varicella (varivax)(chicken pox) Unknown Completed [facility] TDAP Unknown Completed [facility] DTAP Unknown Completed [facility] DTAP Unknown Completed [facility] DTAP Unknown Completed [facility] DTAP Unknown Completed [facility] DTAP Unknown Completed [facility] HIB 4 Dose Schedule Unknown Completed [facility] HIB 4 Dose Schedule Unknown Completed [facility] HIB 4 Dose Schedule Unknown Completed [facility] HIB 4 Dose Schedule Unknown Completed [facility] HEPATITIS A Unknown Completed [facility] HEPATITIS A Unknown Com[facility] Hep B, Adol or Pedi Dosage Unknown Completed [facility] Hep B, Adol or Pedi Dosage Unknown Completed [facility] Hep B, Adol or Pedi Dosage Unknown Completed [facility] HPV Unknown Completed [facility] HPV Unknown Completed [facility] Influenza Virus Vaccine Unknown Completed [facility] Influenza Virus Vaccine Unknown Completed [facility] MMR Unknown Completed [facility] MMR Unknown Completed [facility] Pneumococcal 7 Conjugate, PCV7 (Prevnar7) Unknown Completed [facility] Pneumococcal 7 Conjugate, PCV7 (Prevnar7) Unknown Completed [facility] Pneumococcal 7 Conjugate, PCV7 (Prevnar7) Unknown Completed [facility] Pneumococcal 7 Conjugate, PCV7 (Prevnar7) Unknown Completed [facility] Polio (IPV/OPV) Unknown Completed [facility] Polio (IPV/OPV) Unknown Completed [facility] Polio (IPV/OPV) Unknown Completed [facility] Polio (IPV/OPV) Unknown Completed [facility] Varicella (varivax)(chicken pox) Unknown Completed [facility] TDAP Unknown Completed [facility] DTAP Unknown Completed [facility] DTAP Unknown Completed [facility] DTAP Unknown Completed [facility] DTAP Unknown Completed [facility] DTAP Unknown Completed [facility] HIB 4 Dose Schedule Unknown Completed [facility] HIB 4 Dose Schedule Unknown Completed [facility] HIB 4 Dose Schedule Unknown Completed [facility] HIB 4 Dose Schedule Unknown Completed [facility] HEPATITIS A Unknown Completed [facility] HEPATITIS A Unknown Completed [facility] Hep B, Adol or Pedi Dosage Unknown Completed [facility] Hep B, Adol or Pedi Dosage Unknown Completed [facility] Hep B, Adol or Pedi Dosage Unknown Completed [facility] HPV Unknown Completed [facility] HPV Unknown Completed [facility] Influenza Virus Vaccine Unknown Completed [facility] Influenza Virus Vaccine Unknown Completed [facility] MMR Unknown Completed [facility] MMR Unknown Completed [facility] Pneumococcal 7 Conjugate, PCV7 (Prevnar7) Unknown Completed [facility] Pneumococcal 7 Conjugate, PCV7 (Prevnar7) Unknown Completed [facility] Pneumococcal 7 Conjugate, PCV7 (Prevnar7) Unknown Completed [facility] Pneumococcal 7 Conjugate, PCV7 (Prevnar7) Unknown Completed [facility] Polio (IPV/OPV) Unknown Completed [facility] Polio (IPV/OPV) Unknown Completed [facility] Polio (IPV/OPV) Unknown Completed [facility] Polio (IPV/OPV) Unknown Completed [facility] Varicella (varivax)(chicken pox) Unknown Completed [facility] TDAP Unknown Completed [facility] DTAP Unknown Completed [facility] DTAP Unknown Completed [facility] DTAP Unknown Completed [facility] DTAP Unknown Completed [facility] DTAP Unknown Completed [facility] HIB 4 Dose Schedule Unknown Completed [facility] HIB 4 Dose Schedule Unknown Completed [facility] HIB 4 Dose Schedule Unknown Completed [facility] HIB 4 Dose Schedule Unknown Completed [facility] HEPATITIS A Unknown Completed [facility] HEPATITIS A Unknown Completed [facility] Hep B, Adol or Pedi Dosage Unknown Completed [facility] Hep B, Adol or Pedi Dosage Unknown Completed [facility] Hep B, Adol or Pedi Dosage Unknown Completed [facility] HPV Unknown Completed [facility] HPV Unknown Completed [facility] Influenza Virus Vaccine Unknown Completed [facility] Influenza Virus Vaccine Unknown Completed [facility] MMR Unknown Completed [facility] MMR Unknown Completed [facility] Pneumococcal 7 Conjugate, PCV7 (Prevnar7) Unknown Completed [facility] Pneumococcal 7 Conjugate, PCV7 (Prevnar7) Unknown Completed [facility] Pneumococcal 7 Conjugate, PCV7 (Prevnar7) Unknown Completed [facility] Pneumococcal 7 Conjugate, PCV7 (Prevnar7) Unknown Completed [facility] Polio (IPV/OPV) Unknown Completed [facility] Polio (IPV/OPV) Unknown Completed [facility] Polio (IPV/OPV) Unknown Completed [facility] Polio (IPV/OPV) Unknown Completed [facility] Varicella (varivax)(chicken pox) Unknown Completed [facility] TDAP Unknown Completed [facility] DTAP Unknown Completed [facility] DTAP Unknown Completed [facility] DTAP Unknown Completed [facility] DTAP Unknown Completed [facility] DTAP Unknown Completed [facility] HIB 4 Dose Schedule Unknown Completed [facility] HIB 4 Dose Schedule Unknown Completed [facility] HIB 4 Dose Schedule Unknown Completed [facility] HIB 4 Dose Schedule Unknown Completed [facility] HEPATITIS A Unknown Com[facility]IS [facility], Adol or Pedi Dosage Unknown Completed [facility] Hep B, Adol or Pedi Dosage Unknown Completed [facility] Hep B, Adol or Pedi Dosage Unknown Completed [facility] HPV Unknown Completed [facility] HPV Unknown Completed [facility] Influenza Virus Vaccine Unknown Completed [facility] Influenza Virus Vaccine Unknown Completed [facility] MMR Unknown Completed [facility] MMR Unknown Completed [facility] Pneumococcal 7 Conjugate, PCV7 (Prevnar7) Unknown Completed [facility] Pneumococcal 7 Conjugate, PCV7 (Prevnar7) Unknown Completed [facility] Pneumococcal 7 Conjugate, PCV7 (Prevnar7) Unknown Completed [facility] Pneumococcal 7 Conjugate, PCV7 (Prevnar7) Unknown Completed [facility] Polio (IPV/OPV) Unknown Completed [facility] Polio (IPV/OPV) Unknown Completed [facility] Polio (IPV/OPV) Unknown Completed [facility] Polio (IPV/OPV) Unknown Completed [facility] Varicella (varivax)(chicken pox) Unknown Completed [facility] TDAP Unknown Completed [facility] DTAP Unknown Completed [facility] DTAP Unknown Completed [facility] DTAP Unknown Completed [facility] DTAP Unknown Completed [facility] DTAP Unknown Completed [facility] HIB 4 Dose Schedule Unknown Completed [facility] HIB 4 Dose Schedule Unknown Completed [facility] HIB 4 Dose Schedule Unknown Completed [facility] HIB 4 Dose Schedule Unknown Completed [facility] HEPATITIS A Unknown Completed [facility]PATITIS A [facility], Adol or Pedi Dosage Unknown Completed [facility] Hep B, Adol or Pedi Dosage Unknown Completed [facility] Hep B, Adol or Pedi Dosage Unknown Completed [facility] HPV Unknown Completed [facility] HPV Unknown Completed [facility] Influenza Virus Vaccine Unknown Completed [facility] Influenza Virus Vaccine Unknown Completed [facility] MMR Unknown Completed [facility] MMR Unknown Completed [facility] Pneumococcal 7 Conjugate, PCV7 (Prevnar7) Unknown Completed [facility] Pneumococcal 7 Conjugate, PCV7 (Prevnar7) Unknown Completed [facility] Pneumococcal 7 Conjugate, PCV7 (Prevnar7) Unknown Completed [facility] Pneumococcal 7 Conjugate, PCV7 (Prevnar7) Unknown Completed [facility] Polio (IPV/OPV) Unknown Completed [facility] Polio (IPV/OPV) Unknown Completed [facility] Polio (IPV/OPV) Unknown Completed [facility] Polio (IPV/OPV) Unknown Completed [facility] Varicella (varivax)(chicken pox) Unknown Completed [facility] TDAP Unknown Completed [facility] DTAP Unknown Completed [facility] DTAP Unknown Completed [facility] DTAP Unknown Completed [facility] DTAP Unknown Completed [facility] DTAP Unknown Completed [facility] HIB 4 Dose Schedule Unknown Completed [facility] HIB 4 Dose Schedule Unknown Completed [facility] HIB 4 Dose Schedule Unknown Completed [facility] HIB 4 Dose Schedule Unknown Completed [facility] HEPATITIS A Unknown Completed [facility] HEPATITIS A Unknown Completed [facility] Hep B, Adol or Pedi Dosage Unknown Completed [facility] Hep B, Adol or Pedi Dosage Unknown Completed [facility] Hep B, Adol or Pedi Dosage Unknown Completed [facility] HPV Unknown Completed [facility] HPV Unknown Completed [facility] Influenza Virus Vaccine Unknown Completed [facility] Influenza Virus Vaccine Unknown Completed [facility] MMR Unknown Completed [facility] MMR Unknown Completed [facility] Pneumococcal 7 Conjugate, PCV7 (Prevnar7) Unknown Completed [facility] Pneumococcal 7 Conjugate, PCV7 (Prevnar7) Unknown Completed [facility] Pneumococcal 7 Conjugate, PCV7 (Prevnar7) Unknown Completed [facility] Pneumococcal 7 Conjugate, PCV7 (Prevnar7) Unknown Completed [facility] Polio (IPV/OPV) Unknown Completed [facility] Polio (IPV/OPV) Unknown Completed [facility] Polio (IPV/OPV) Unknown Completed [facility] Polio (IPV/OPV) Unknown Completed [facility] Varicella (varivax)(chicken pox) Unknown Completed [facility] TDAP Unknown Completed [facility] DTAP Unknown Completed [facility] DTAP Unknown Completed [facility] DTAP Unknown Completed [facility] DTAP Unknown Completed [facility] DTAP Unknown Completed [facility] HIB 4 Dose Schedule Unknown Completed [facility] HIB 4 Dose Schedule Unknown Completed [facility] HIB 4 Dose Schedule Unknown Completed [facility] HIB 4 Dose Schedule Unknown Completed [facility] HEPATITIS A Unknown Completed [facility] HEPATITIS A Unknown Completed [facility] Hep B, Adol or Pedi Dosage Unknown Completed [facility] Hep B, Adol or Pedi Dosage Unknown Completed [facility] Hep B, Adol or Pedi Dosage Unknown Completed [facility] HPV Unknown Completed [facility] HPV Unknown Completed [facility] Influenza Virus Vaccine Unknown Completed [facility] Influenza Virus Vaccine Unknown Completed [facility] MMR Unknown Completed [facility] MMR Unknown Completed [facility] Pneumococcal 7 Conjugate, PCV7 (Prevnar7) Unknown Completed [facility] Pneumococcal 7 Conjugate, PCV7 (Prevnar7) Unknown Completed [facility] Pneumococcal 7 Conjugate, PCV7 (Prevnar7) Unknown Completed [facility] Pneumococcal 7 Conjugate, PCV7 (Prevnar7) Unknown Completed [facility] Polio (IPV/OPV) Unknown Completed [facility] Polio (IPV/OPV) Unknown Completed [facility] Polio (IPV/OPV) Unknown Completed [facility] Polio (IPV/OPV) Unknown Completed [facility] Varicella (varivax)(chicken pox) Unknown Completed [facility] TDAP Unknown Completed [facility] DTAP Unknown Completed [facility] DTAP Unknown Completed [facility] DTAP Unknown Completed [facility] DTAP Unknown Completed [facility] DTAP Unknown Completed [facility] HIB 4 Dose Schedule Unknown Completed [facility] HIB 4 Dose Schedule Unknown Completed [facility] HIB 4 Dose Schedule Unknown Completed [facility] HIB 4 Dose Schedule Unknown Completed [facility] HEPATITIS A Unknown Completed [facility] HEPATITIS A Unknown Completed [facility] Hep B, Adol or Pedi Dosage Unknown Completed [facility] Hep B, Adol or Pedi Dosage Unknown Completed [facility] Hep B, Adol or Pedi Dosage Unknown Completed [facility] HPV Unknown Completed [facility] HPV Unknown Completed [facility] Influenza Virus Vaccine Unknown Completed [facility] Influenza Virus Vaccine Unknown Completed [facility] MMR Unknown Completed [facility] MMR Unknown Completed [facility] Pneumococcal 7 Conjugate, PCV7 (Prevnar7) Unknown Completed [facility] Pneumococcal 7 Conjugate, PCV7 (Prevnar7) Unknown Completed [facility] Pneumococcal 7 Conjugate, PCV7 (Prevnar7) Unknown Completed [facility] Pneumococcal 7 Conjugate, PCV7 (Prevnar7) Unknown Completed [facility] Polio (IPV/OPV) Unknown Completed [facility] Polio (IPV/OPV) Unknown Completed [facility] Polio (IPV/OPV) Unknown Completed [facility] Polio (IPV/OPV) Unknown Completed [facility] Varicella (varivax)(chicken pox) Unknown Completed [facility] TDAP Unknown Completed [facility] TDAP Unknown Completed [facility] DTAP Unknown Completed [facility] DTAP Unknown Completed [facility] DTAP Unknown Completed [facility] DTAP Unknown Completed [facility] DTAP Unknown Completed [facility] HIB 4 Dose Schedule Unknown Completed [facility] HIB 4 Dose Schedule Unknown Completed [facility] HIB 4 Dose Schedule Unknown Completed [facility] HIB 4 Dose Schedule Unknown Completed [facility] HEPATITIS A Unknown Completed [facility] HEPATITIS A Unknown Completed [facility] Hep B, Adol or Pedi Dosage Unknown Completed [facility] Hep B, Adol or Pedi Dosage Unknown Completed [facility] Hep B, Adol or Pedi Dosage Unknown Completed [facility] HPV Unknown Completed [facility] HPV Unknown Completed [facility] Influenza Virus Vaccine Unknown Completed [facility] Influenza Virus Vaccine Unknown Completed [facility] MMR Unknown Completed [facility] MMR Unknown Completed [facility] Pneumococcal 7 Conjugate, PCV7 (Prevnar7) Unknown Completed [facility] Pneumococcal 7 Conjugate, PCV7 (Prevnar7) Unknown Completed [facility] Pneumococcal 7 Conjugate, PCV7 (Prevnar7) Unknown Completed [facility] Pneumococcal 7 Conjugate, PCV7 (Prevnar7) Unknown Completed [facility] Polio (IPV/OPV) Unknown Completed [facility] Polio (IPV/OPV) Unknown Completed [facility] Polio (IPV/OPV) Unknown Completed [facility] Polio (IPV/OPV) Unknown Completed [facility] Varicella (varivax)(chicken pox) Unknown Completed [facility] TDAP Unknown Completed [facility] TDAP Unknown Completed [facility] DTAP Unknown Completed [facility] DTAP Unknown Completed [facility] DTAP Unknown Completed [facility] DTAP Unknown Completed [facility] DTAP Unknown Completed [facility] HIB 4 Dose Schedule Unknown Completed [facility] HIB 4 Dose Schedule Unknown Completed [facility] HIB 4 Dose Schedule Unknown Completed [facility] HIB 4 Dose Schedule Unknown Completed [facility] HEPATITIS A Unknown Completed [facility] HEPATITIS A Unknown Completed [facility] Hep B, Adol or Pedi Dosage Unknown Completed [facility] Hep B, Adol or Pedi Dosage Unknown Completed [facility] Hep B, Adol or Pedi Dosage Unknown Completed [facility] HPV Unknown Completed [facility] HPV Unknown Completed [facility] Influenza Virus Vaccine Unknown Completed [facility] Influenza Virus Vaccine Unknown Completed [facility] MMR Unknown Completed [facility] MMR Unknown Completed [facility] Pneumococcal 7 Conjugate, PCV7 (Prevnar7) Unknown Completed [facility] Pneumococcal 7 Conjugate, PCV7 (Prevnar7) Unknown Completed [facility] Pneumococcal 7 Conjugate, PCV7 (Prevnar7) Unknown Completed [facility] Pneumococcal 7 Conjugate, PCV7 (Prevnar7) Unknown Completed [facility] Polio (IPV/OPV) [facility] Polio (IPV/OPV) Unknown Completed [facility] Polio (IPV/OPV) Unknown Completed [facility] Varicella (varivax)(chicken pox) Unknown Completed [facility] TDAP Unknown Completed [facility] TDAP Unknown Completed [facility] DTAP Unknown Completed [facility] DTAP Unknown Completed [facility] DTAP Unknown Completed [facility] DTAP Unknown Completed [facility] DTAP Unknown Completed [facility] HIB 4 Dose Schedule Unknown Completed [facility] HIB 4 Dose Schedule Unknown Completed [facility] HIB 4 Dose Schedule Unknown Completed [facility] HIB 4 Dose Schedule Unknown Completed [facility] HEPATITIS A Unknown Completed [facility] HEPATITIS A Unknown Completed [facility] Hep B, Adol or Pedi Dosage Unknown Completed [facility] Hep B, Adol or Pedi Dosage Unknown Completed [facility] Hep B, Adol or Pedi Dosage Unknown Completed [facility] HPV Unknown Completed [facility] HPV Unknown Completed [facility] Influenza Virus Vaccine Unknown Completed [facility] Influenza Virus Vaccine Unknown Completed [facility] MMR Unknown Completed [facility] MMR Unknown Completed [facility] Pneumococcal 7 Conjugate, PCV7 (Prevnar7) Unknown Completed [facility] Pneumococcal 7 Conjugate, PCV7 (Prevnar7) Unknown Completed [facility] Pneumococcal 7 Conjugate, PCV7 (Prevnar7) Unknown Completed [facility] Pneumococcal 7 Conjugate, PCV7 (Prevnar7) Unknown Completed [facility] Polio (IPV/OPV) [facility] Polio (IPV/OPV) Unknown Completed [facility] Polio (IPV/OPV) Unknown Completed [facility] Varicella (varivax)(chicken pox) Unknown Completed [facility] TDAP Unknown Completed [facility] TDAP Unknown Completed [facility] DTAP Unknown Completed [facility] DTAP Unknown Completed [facility] DTAP Unknown Completed [facility] DTAP Unknown Completed [facility] DTAP Unknown Completed [facility] HIB 4 Dose Schedule Unknown Completed [facility] HIB 4 Dose Schedule Unknown Completed [facility] HIB 4 Dose Schedule Unknown Completed [facility] HIB 4 Dose Schedule Unknown Completed [facility] HEPATITIS A Unknown Completed [facility] HEPATITIS A Unknown Completed [facility] Hep B, Adol or Pedi Dosage Unknown Completed [facility] Hep B, Adol or Pedi Dosage Unknown Completed [facility] Hep B, Adol or Pedi Dosage Unknown Completed [facility] HPV Unknown Completed [facility] HPV Unknown Completed [facility] Influenza Virus Vaccine Unknown Completed [facility] Influenza Virus Vaccine Unknown Completed [facility] MMR Unknown Completed [facility] MMR Unknown Completed [facility] Pneumococcal 7 Conjugate, PCV7 (Prevnar7) Unknown Completed [facility] Pneumococcal 7 Conjugate, PCV7 (Prevnar7) Unknown Completed [facility] Pneumococcal 7 Conjugate, PCV7 (Prevnar7) Unknown Completed [facility] Pneumococcal 7 Conjugate, PCV7 (Prevnar7) Unknown Completed [facility] Polio (IPV/OPV) Unknown Completed [facility] Polio (IPV/OPV) Unknown Completed [facility] Polio (IPV/OPV) Unknown Completed [facility] Polio (IPV/OPV) Unknown Completed [facility] Varicella (varivax)(chicken pox) Unknown Completed [facility] TDAP Unknown Completed [facility] TDAP Unknown Completed [facility] DTAP Unknown Completed [facility] DTAP Unknown Completed [facility] DTAP Unknown Completed [facility] DTAP Unknown Completed [facility] DTAP Unknown Completed [facility] HIB 4 Dose Schedule Unknown Completed [facility] HIB 4 Dose Schedule Unknown Completed [facility] HIB 4 Dose Schedule Unknown Completed [facility] HIB 4 Dose Schedule Unknown Completed [facility] HEPATITIS A Unknown Completed [facility] HEPATITIS A Unknown Completed [facility] Hep B, Adol or Pedi Dosage Unknown Completed [facility] Hep B, Adol or Pedi Dosage Unknown Completed [facility] Hep B, Adol or Pedi Dosage Unknown Completed [facility] HPV Unknown Completed [facility] HPV Unknown Completed [facility] Influenza Virus Vaccine Unknown Completed [facility] Influenza Virus Vaccine Unknown Completed [facility] MMR Unknown Completed [facility] MMR Unknown Completed [facility] Pneumococcal 7 Conjugate, PCV7 (Prevnar7) Unknown Completed [facility] Pneumococcal 7 Conjugate, PCV7 (Prevnar7) Unknown Completed [facility] Pneumococcal 7 Conjugate, PCV7 (Prevnar7) Unknown Completed [facility] Pneumococcal 7 Conjugate, PCV7 (Prevnar7) Unknown Completed [facility] Polio (IPV/OPV) Unknown Completed [facility] Polio (IPV/OPV) Unknown Completed [facility] Polio (IPV/OPV) Unknown Completed [facility] Polio (IPV/OPV) Unknown Completed [facility] Varicella (varivax)(chicken pox) Unknown Completed [facility] TDAP Unknown Completed [facility] TDAP Unknown Completed [facility] DTAP Unknown Completed [facility] DTAP Unknown Completed [facility] DTAP Unknown Completed [facility] DTAP Unknown Completed [facility] DTAP Unknown Completed [facility] HIB 4 Dose Schedule Unknown Completed [facility] HIB 4 Dose Schedule Unknown Completed [facility] HIB 4 Dose Schedule Unknown Completed [facility] HIB 4 Dose Schedule Unknown Completed [facility] HEPATITIS A Unknown Completed [facility] HEPATITIS A Unknown Completed [facility] Hep B, Adol or Pedi Dosage Unknown Completed [facility] Hep B, Adol or Pedi Dosage Unknown Completed [facility] Hep B, Adol or Pedi Dosage Unknown Completed [facility] HPV Unknown Completed [facility] HPV Unknown Completed [facility] Influenza Virus Vaccine Unknown Completed [facility] Influenza Virus Vaccine Unknown Completed [facility] MMR Unknown Completed [facility] MMR Unknown Completed [facility] Pneumococcal 7 Conjugate, PCV7 (Prevnar7) Unknown Completed [facility] Pneumococcal 7 Conjugate, PCV7 (Prevnar7) Unknown Completed [facility] Pneumococcal 7 Conjugate, PCV7 (Prevnar7) Unknown Completed [facility] Pneumococcal 7 Conjugate, PCV7 (Prevnar7) Unknown Completed [facility] Polio (IPV/OPV) Unknown Completed [facility] Polio (IPV/OPV) Unknown Completed [facility] Polio (IPV/OPV) Unknown Completed [facility] Polio (IPV/OPV) Unknown Completed [facility] Varicella (varivax)(chicken pox) Unknown Completed [facility] TDAP Unknown Completed [facility] TDAP Unknown Completed [facility] DTAP Unknown Completed [facility] DTAP Unknown Completed [facility] DTAP Unknown Completed [facility] DTAP Unknown Completed [facility] DTAP Unknown Completed [facility] HIB 4 Dose Schedule Unknown Completed [facility] HIB 4 Dose Schedule Unknown Completed [facility] HIB 4 Dose Schedule Unknown Completed [facility] HIB 4 Dose Schedule Unknown Completed [facility] HEPATITIS A Unknown Completed [facility] HEPATITIS A Unknown Completed [facility] Hep B, Adol or Pedi Dosage Unknown Completed [facility] Hep B, Adol or Pedi Dosage Unknown Completed [facility] Hep B, Adol or Pedi Dosage Unknown Completed [facility] HPV Unknown Completed [facility] HPV Unknown Completed [facility] Influenza Virus Vaccine Unknown Completed [facility] Influenza Virus Vaccine Unknown Completed [facility] MMR Unknown Completed [facility] MMR Unknown Completed [facility] Pneumococcal 7 Conjugate, PCV7 (Prevnar7) Unknown Completed [facility] Pneumococcal 7 Conjugate, PCV7 (Prevnar7) Unknown Completed [facility] Pneumococcal 7 Conjugate, PCV7 (Prevnar7) Unknown Completed [facility] Pneumococcal 7 Conjugate, PCV7 (Prevnar7) Unknown Completed [facility] Polio (IPV/OPV) Unknown Completed [facility] Polio (IPV/OPV) Unknown Completed [facility] Polio (IPV/OPV) Unknown Completed [facility] Polio (IPV/OPV) Unknown Completed [facility] Varicella (varivax)(chicken pox) Unknown Completed [facility] TDAP Unknown Completed [facility] TDAP Unknown Completed [facility] DTAP Unknown Completed [facility] DTAP Unknown Completed [facility] DTAP Unknown Completed [facility] DTAP Unknown Completed [facility] DTAP Unknown Completed [facility] HIB 4 Dose Schedule Unknown Completed [facility] HIB 4 Dose Schedule Unknown Completed [facility] HIB 4 Dose Schedule Unknown Completed [facility] HIB 4 Dose Schedule Unknown Completed [facility] HEPATITIS A Unknown Completed [facility] HEPATITIS A Unknown Completed [facility] Hep B, Adol or Pedi Dosage Unknown Completed [facility] Hep B, Adol or Pedi Dosage Unknown Completed [facility] Hep B, Adol or Pedi Dosage Unknown Completed [facility] HPV Unknown Completed [facility] HPV Unknown Completed [facility] Influenza Virus Vaccine Unknown Completed [facility] Influenza Virus Vaccine Unknown Completed [facility] MMR Unknown Completed [facility] MMR Unknown Completed [facility] Pneumococcal 7 Conjugate, PCV7 (Prevnar7) Unknown Completed [facility] Pneumococcal 7 Conjugate, PCV7 (Prevnar7) Unknown Completed [facility] Pneumococcal 7 Conjugate, PCV7 (Prevnar7) Unknown Completed [facility] Pneumococcal 7 Conjugate, PCV7 (Prevnar7) Unknown Completed [facility] Polio (IPV/OPV) Unknown Completed [facility] Polio (IPV/OPV) Unknown Completed [facility] Polio (IPV/OPV) Unknown Completed [facility] Polio (IPV/OPV) Unknown Completed [facility] Varicella (varivax)(chicken pox) Unknown Completed [facility] TDAP Unknown Completed [facility] DTAP Unknown Completed [facility] DTAP Unknown Completed [facility] DTAP Unknown Completed [facility] DTAP Unknown Completed [facility] DTAP Unknown Completed [facility] HIB 4 Dose Schedule Unknown Completed [facility] HIB 4 Dose Schedule Unknown Completed [facility] HIB 4 Dose Schedule Unknown Completed [facility] HIB 4 Dose Schedule Unknown Completed [facility] HEPATITIS A Unknown Completed [facility] HEPATITIS A Unknown Completed [facility] Hep B, Adol or Pedi Dosage Unknown Completed [facility] Hep B, Adol or Pedi Dosage Unknown Completed [facility] Hep B, Adol or Pedi Dosage Unknown Completed [facility] HPV Unknown Completed [facility] HPV Unknown Completed [facility] Influenza Virus Vaccine Unknown Completed [facility] Influenza Virus Vaccine Unknown Completed [facility] MMR Unknown Completed [facility] MMR Unknown Completed [facility] Pneumococcal 7 Conjugate, PCV7 (Prevnar7) Unknown Completed [facility] Pneumococcal 7 Conjugate, PCV7 (Prevnar7) Unknown Completed [facility] Pneumococcal 7 Conjugate, PCV7 (Prevnar7) Unknown Completed [facility] Pneumococcal 7 Conjugate, PCV7 (Prevnar7) Unknown Completed [facility] Polio (IPV/OPV) Unknown Completed [facility] Polio (IPV/OPV) Unknown Completed [facility] Polio (IPV/OPV) Unknown Completed [facility] Polio (IPV/OPV) Unknown Completed [facility] Varicella (varivax)(chicken pox) Unknown Completed [facility] TDAP Unknown Completed [facility] TDAP Unknown Completed [facility] DTAP Unknown Completed [facility] DTAP Unknown Completed [facility] DTAP Unknown Completed [facility] DTAP Unknown Completed [facility] DTAP Unknown Completed [facility] HIB 4 Dose Schedule Unknown Completed [facility] HIB 4 Dose Schedule Unknown Completed [facility] HIB 4 Dose Schedule Unknown Completed [facility] HIB 4 Dose Schedule Unknown Completed [facility] HEPATITIS A Unknown Completed [facility] HEPATITIS A Unknown Completed [facility] Hep B, Adol or Pedi Dosage Unknown Completed [facility] Hep B, Adol or Pedi Dosage Unknown Completed [facility] Hep B, Adol or Pedi Dosage Unknown Completed [facility] HPV Unknown Completed [facility] HPV Unknown Completed [facility] Influenza Virus Vaccine Unknown Completed [facility] Influenza Virus Vaccine Unknown Completed [facility] MMR Unknown Completed [facility] MMR Unknown Completed [facility] Pneumococcal 7 Conjugate, PCV7 (Prevnar7) Unknown Completed [facility] Pneumococcal 7 Conjugate, PCV7 (Prevnar7) Unknown Completed [facility] Pneumococcal 7 Conjugate, PCV7 (Prevnar7) Unknown Completed [facility] Pneumococcal 7 Conjugate, PCV7 (Prevnar7) Unknown Completed [facility] Polio (IPV/OPV) Unknown Completed [facility] Polio (IPV/OPV) Unknown Completed [facility] Polio (IPV/OPV) Unknown Completed [facility] Polio (IPV/OPV) Unknown Completed [facility] Varicella (varivax)(chicken pox) Unknown Completed [facility] TDAP Unknown Completed [facility] TDAP Unknown Completed [facility] DTAP Unknown Completed [facility] HIB 4 Dose Schedule Unknown Completed [facility] HEPATITIS A Unknown Completed [facility] Hep B, Adol or Pedi Dosage Unknown Completed [facility] HPV Unknown Completed [facility] Influenza Virus Vaccine Unknown Completed [facility] MMR Unknown Completed [facility] Pneumococcal 7 Conjugate, PCV7 (Prevnar7) Unknown Completed [facility] Polio (IPV/OPV) Unknown Completed [facility] Varicella (varivax)(chicken pox) Unknown Completed [facility] TDAP Unknown Completed [facility] Flu Injectable MDCK Pres-Free (FLUCELVAX) Unknown Completed [facility] DTAP Unknown Completed [facility] DTAP Unknown Completed [facility] DTAP Unknown Completed [facility] DTAP Unknown Completed [facility] DTAP Unknown Completed [facility] HIB 4 Dose Schedule Unknown Completed [facility] HIB 4 Dose Schedule Unknown Completed [facility] HIB 4 Dose Schedule Unknown Completed [facility] HIB 4 Dose Schedule Unknown Completed [facility] HEPATITIS A Unknown Completed [facility] HEPATITIS A Unknown Completed [facility] Hep B, Adol or Pedi Dosage Unknown Completed [facility] Hep B, Adol or Pedi Dosage Unknown Completed [facility] Hep B, Adol or Pedi Dosage Unknown Completed [facility] HPV Unknown Completed [facility] HPV Unknown Completed [facility] Influenza Virus Vaccine Unknown Completed [facility] Influenza Virus Vaccine Unknown Completed [facility] MMR Unknown Completed [facility] MMR Unknown Completed [facility] Pneumococcal 7 Conjugate, PCV7 (Prevnar7) Unknown Completed [facility] Pneumococcal 7 Conjugate, PCV7 (Prevnar7) Unknown Completed [facility] Pneumococcal 7 Conjugate, PCV7 (Prevnar7) Unknown Completed [facility] Pneumococcal 7 Conjugate, PCV7 (Prevnar7) Unknown Completed [facility] Polio (IPV/OPV) Unknown Completed [facility] Polio (IPV/OPV) Unknown Completed [facility] Polio (IPV/OPV) Unknown Completed [facility] Polio (IPV/OPV) Unknown Completed [facility] Varicella (varivax)(chicken pox) Unknown Completed [facility] TDAP Unknown Completed [facility] DTAP Unknown Completed [facility] DTAP Unknown Completed [facility] DTAP Unknown Completed [facility] DTAP Unknown Completed [facility] DTAP Unknown Completed [facility] HIB 4 Dose Schedule Unknown Completed [facility] HIB 4 Dose Schedule Unknown Completed [facility] HIB 4 Dose Schedule Unknown Completed [facility] HIB 4 Dose Schedule Unknown Completed [facility] HEPATITIS A Unknown Completed [facility] HEPATITIS A Unknown Completed [facility] Hep B, Adol or Pedi Dosage Unknown Completed [facility] Hep B, Adol or Pedi Dosage Unknown Completed [facility] Hep B, Adol or Pedi Dosage Unknown Completed [facility] HPV Unknown Completed [facility] HPV Unknown Completed [facility] Influenza Virus Vaccine Unknown Completed [facility] Influenza Virus Vaccine Unknown Completed [facility] MMR Unknown Completed [facility] MMR Unknown Completed [facility] Pneumococcal 7 Conjugate, PCV7 (Prevnar7) Unknown Completed [facility] Pneumococcal 7 Conjugate, PCV7 (Prevnar7) Unknown Completed [facility] Pneumococcal 7 Conjugate, PCV7 (Prevnar7) Unknown Completed [facility] Pneumococcal 7 Conjugate, PCV7 (Prevnar7) Unknown Completed [facility] Polio (IPV/OPV) Unknown Completed [facility] Polio (IPV/OPV) Unknown Completed [facility] Polio (IPV/OPV) Unknown Completed [facility] Polio (IPV/OPV) Unknown Completed [facility] Varicella (varivax)(chicken pox) Unknown Completed [facility] TDAP Unknown Completed [facility] DTAP Unknown Completed [facility] DTAP Unknown Completed [facility] DTAP Unknown Completed [facility] DTAP Unknown Completed [facility] DTAP Unknown Completed [facility] HIB 4 Dose Schedule Unknown Completed [facility] HIB 4 Dose Schedule Unknown Completed [facility] HIB 4 Dose Schedule Unknown Completed [facility] HIB 4 Dose Schedule Unknown Completed [facility] HEPATITIS A Unknown Completed [facility] HEPATITIS A Unknown Completed [facility] Hep B, Adol or Pedi Dosage Unknown Completed [facility] Hep B, Adol or Pedi Dosage Unknown Completed [facility] Hep B, Adol or Pedi Dosage Unknown Completed [facility] HPV Unknown Completed [facility] HPV Unknown Completed [facility] Influenza Virus Vaccine Unknown Completed [facility] Influenza Virus Vaccine Unknown Completed [facility] MMR Unknown Completed [facility] MMR Unknown Completed [facility] Pneumococcal 7 Conjugate, PCV7 (Prevnar7) Unknown Completed [facility] Pneumococcal 7 Conjugate, PCV7 (Prevnar7) Unknown Completed [facility] Pneumococcal 7 Conjugate, PCV7 (Prevnar7) Unknown Completed [facility] Pneumococcal 7 Conjugate, PCV7 (Prevnar7) Unknown Completed [facility] Polio (IPV/OPV) Unknown Completed [facility] Polio (IPV/OPV) Unknown Completed [facility] Polio (IPV/OPV) Unknown Completed [facility] Polio (IPV/OPV) Unknown Completed [facility] Varicella (varivax)(chicken pox) Unknown Completed [facility] TDAP Unknown Completed [facility] DTAP Unknown Completed [facility] DTAP Unknown Completed [facility] DTAP Unknown Completed [facility] DTAP Unknown Completed [facility] DTAP Unknown Completed [facility] HIB 4 Dose Schedule Unknown Completed [facility] HIB 4 Dose Schedule Unknown Completed [facility] HIB 4 Dose Schedule Unknown Completed [facility] HIB 4 Dose Schedule Unknown Completed [facility] HEPATITIS A Unknown Completed [facility] HEPATITIS A Unknown Completed [facility] Hep B, Adol or Pedi Dosage Unknown Completed [facility] Hep B, Adol or Pedi Dosage Unknown Completed [facility] Vital Signs Vital Name Observation Time Observation Value Comments S ource Systolic blood pressure 2023-12-23 19:45:00 120 mm[Hg] [facility] Diastolic blood pressure 2023-12-23 19:45:00 88 mm[Hg] [facility] Heart rate 2023-12-23 19:39:00 89 /min [facility] Body temperature 2023-12-23 19:39:00 36.72 Nanette [facility] Respiratory rate 2023-12-23 19:39:00 18 /min [facility] Body height 2023-12-23 19:39:00 157.5 cm [facility] Body weight 2023-12-23 19:39:00 94.944 kg [facility] BMI 2023-12-23 19:39:00 38.28 kg/m2 [facility] Systolic blood pressure 2023-12-16 19:08:00 122 mm[Hg] [facility] Diastolic blood pressure 2023-12-16 19:08:00 87 mm[Hg] [facility] Heart rate 2023-12-16 19:08:00 101 /min [facility] Body temperature 2023-12-16 19:03:00 35.94 Nanette [facility] Respiratory rate 2023-12-16 19:03:00 18 /min [facility] Body height 2023-12-16 19:03:00 157[facility] 2023-12-16 19:03:00 94.121 kg [facility] BMI 2023-12-16 19:03:00 37.95 kg/m2 [facility] Systolic blood pressure 2023-12-04 13:14:00 122 mm[Hg] [facility] Diastolic blood pressure 2023-12-04 13:14:00 82 mm[Hg] [facility] Heart rate 2023-12-04 13:14:00 87 /min [facility] Body temperature 2023-12-04 13:14:00 35.78 Nanette [facility] Respiratory rate 2023-12-04 13:14:00 19 /min [facility] Body height 2023-12-04 13:14:00 157.5 cm [facility] Body weight 2023-12-04 13:14:00 93.94 kg [facility] BMI 2023-12-04 13:14:00 37.88 kg/m2 [facility] Systolic blood pressure 2023-11-26 13:35:00 123 mm[Hg] [facility] Diastolic blood pressure 2023-11-26 13:35:00 87 mm[Hg] [facility] Heart rate 2023-11-26 13:35:00 90 /min [facility] 2023-11-26 13:35:00 36 Nanette [facility] Respiratory rate 2023-11-26 13:35:00 18 /min [facility] Body height 2023-11-26 13:35:00 157.5 cm [facility] 2023-11-26 13:35:00 94.076 kg [facility] BMI 2023-11-26 13:35:00 37.93 kg/m2 [facility] Systolic blood pressure 2023-11-13 15:14:00 137 mm[Hg] [facility] Diastolic blood pressure 2023-11-13 15:14:00 86 mm[Hg] [facility] Heart rate 2023-11-13 15:14:00 90 /min [facility] 2023-11-13 15:14:00 36.5 Nanette [facility] Respiratory rate 2023-11-13 15:14:00 18 /min [facility] Body height 2023-11-13 15:14:00 157.5 cm [facility] 2023-11-13 15:14:00 93.441 kg [facility] BMI 2023-11-13 15:14:00 37.68 kg/m2 [facility] Systolic blood pressure 2023-11-06 18:11:00 128 mm[Hg] [facility] Diastolic blood pressure 2023-11-06 18:11:00 86 mm[Hg] [facility] Heart rate 2023-11-06 18:11:00 92 /min [facility] Body temperature 2023-11-06 18:11:00 35.78 Nanette [facility] Respiratory rate 2023-11-06 18:11:00 18 /min [facility] Body height 2023-11-06 18:11:00 157.5 cm [facility] Body weight 2023-11-06 18:11:00 91.74 kg [facility] BMI 2023-11-06 18:11:00 36.99 kg/m2 [facility] Systolic blood pressure 2023-10-08 13:57:00 131 mm[Hg] [facility] Diastolic blood pressure 2023-10-08 13:57:00 90 mm[Hg] [facility] Heart rate 2023-10-08 13:57:00 95 /min Unive [facility] Body temperature 2023-10-08 13:57:00 36.5 Nanette [facility] Respiratory rate 2023-10-08 13:57:00 18 /min [facility] Body height 2023-10-08 13:57:00 157.5 cm [facility] 2023-10-08 13:57:00 89.767 kg [facility] BMI 2023-10-08 13:57:00 36.20 kg/m2 [facility] Systolic blood pressure 2023-09-23 14:40:00 133 mm[Hg] [facility] Diastolic blood pressure 2023-09-23 14:40:00 84 mm[Hg] [facility] Heart rate 2023-09-23 14:40:00 98 /min Unive [facility] Body temperature 2023-09-23 14:39:00 36.11 Nanette [facility] Respiratory rate 2023-09-23 14:39:00 18 /min [facility] Body height 2023-09-23 14:39:00 157.5 cm [facility] Body weight 2023-09-23 14:39:00 90.833 kg [facility] BMI 2023-09-23 14:39:00 36.63 kg/m2 [facility] Systolic blood pressure 2023-09-10 04:00:00 103 mm[Hg] [facility] Diastolic blood pressure 2023-09-10 04:00:00 63 mm[Hg] [facility] Heart rate 2023-09-10 04:00:00 79 /min [facility] Oxygen saturation in Arterial blood by Pulse oximetry 2023-09-10 04:00:00 98 /min [facility] Body temperature 2023-09-10 00:10:00 36.72 Nanette [facility] Respiratory rate 2023-09-10 00:10:00 20 /min [facility] Systolic blood pressure 2023-09-09 20:21:00 130 mm[Hg] [facility] Diastolic blood pressure 2023-09-09 20:21:00 85 mm[Hg] [facility] Heart rate 2023-09-09 20:14:00 100 /min Unive [facility] Body temperature 2023-09-09 20:14:00 36.17 Nanette [facility] Respiratory rate 2023-09-09 20:14:00 18 /min [facility] Body height 2023-09-09 20:14:00 157.5 cm [facility] Body weight 2023-09-09 20:14:00 92.262 kg [facility] BMI 2023-09-09 20:14:00 37.20 kg/m2 [facility] Systolic blood pressure 2023-08-22 15:41:00 131 mm[Hg] [facility] Diastolic blood pressure 2023-08-22 15:41:00 90 mm[Hg] [facility] Heart rate 2023-08-22 15:41:00 90 /min Unive [facility] Body temperature 2023-08-22 15:41:00 35.5 Nanette [facility] Respiratory rate 2023-08-22 15:41:00 18 /min [facility] Body height 2023-08-22 15:41:00 157.5 cm [facility] Body weight 2023-08-22 15:41:00 90.447 kg [facility] BMI 2023-08-22 15:41:00 36.47 kg/m2 [facility] Systolic blood pressure 2023-08-08 15:04:00 128 mm[Hg] [facility] Diastolic blood pressure 2023-08-08 15:04:00 83 mm[Hg] [facility] Heart rate 2023-08-08 15:04:00 86 /min Unive [facility] Body temperature 2023-08-08 15:03:00 36.44 Nanette [facility] Respiratory rate 2023-08-08 15:03:00 18 /min [facility] Body height 2023-08-08 15:03:00 157.5 cm [facility] Body weight 2023-08-08 15:03:00 90.833 kg [facility] BMI 2023-08-08 15:03:00 36.63 kg/m2 [facility] Systolic blood pressure 2023-07-11 15:34:00 144 mm[Hg] [facility] Diastolic blood pressure 2023-07-11 15:34:00 99 mm[Hg] [facility] Heart rate 2023-07-11 15:34:00 98 /min Unive [facility] Body temperature 2023-07-11 15:34:00 36.5 Nanette [facility] Respiratory rate 2023-07-11 15:34:00 18 /min [facility] Body height 2023-07-11 15:34:00 157.5 cm [facility] Body weight 2023-07-11 15:34:00 89.631 kg [facility] BMI 2023-07-11 15:34:00 36.14 kg/m2 [facility] Systolic blood pressure 2023-06-27 15:04:00 132 mm[Hg] [facility] Diastolic blood pressure 2023-06-27 15:04:00 89 mm[Hg] [facility] Heart rate 2023-06-27 15:04:00 87 /min Unive [facility] Body temperature 2023-06-27 15:04:00 36.39 Nanette [facility] Respiratory rate 2023-06-27 15:04:00 17 /min [facility] Body height 2023-06-27 15:04:00 157.5 cm [facility] Body weight 2023-06-27 15:04:00 92.352 kg [facility] BMI 2023-06-27 15:04:00 37.24 kg/m2 [facility] Procedures Procedure Date / Time Performed Performing Clinician Source NON-STRESS TEST 2023-12-23 21:10:39 Ryann Gann [facility] FLU VACC ([id number]), 6 MO-64 YRS, .5ML, IM, TIV (FLUCELVAX) 2023-12-23 20:01:04 Bonita Gann [facility] POCT URINALYSIS 2023-12-23 19:40:00 Tasha Marroquin [facility] NON-STRESS TEST 2023-12-16 20:23:55 Ryann Gann [facility] POCT URINALYSIS 2023-12-16 19:04:00 Tasha Marroquin [facility] NON-STRESS TEST 2023-12-04 14:19:01 Jihan Parnell sa [facility] POCT URINALYSIS 2023-12-04 13:16:00 Tasha Marroquin [facility] POCT URINALYSIS 2023-11-26 13:37:00 Tasha Marroquin [facility] SECOND AND THIRD TRIMESTER ULTRASOUND 2023-11-26 13:25:00 Bonita Gann [facility] SECOND AND THIRD TRIMESTER ULTRASOUND 2023-11-17 15:07:00 Bonita Gann [facility] POCT URINALYSIS 2023-11-13 15:14:00 Tasha Marroquin [facility] TDAP VACCINE, >11 YRS, IM 2023-11-06 18:47:25 Joselin Parnell [facility] POCT URINALYSIS 2023-11-06 18:11:00 Tasha Marroquin [facility] SECOND AND THIRD TRIMESTER ULTRASOUND 2023-10-20 15:12:00 Bonita Gann [facility] SECOND AND THIRD TRIMESTER ULTRASOUND 2023-10-20 15:04:00 Bonita Gann [facility] POCT URINALYSIS 2023-10-08 14:00:00 Tasha Marroquin [facility] POCT URINALYSIS 2023-09-23 14:40:00 Tasha Marroquin [facility] POCT GLUCOSE (AUTOMATED) 2023-09-10 00:29:00 Navneet Gallegos [facility] SGOT (ASPARTATE AMINO TRANSFER) 2023-09-10 00:26:00 Valarie Aldana Mai [facility] CREATININE 2023-09-10 00:26:00 Sandy Aldana Mai [facility] ALANINE AMINO TRANSFERASE(SGPT 2023-09-10 00:26:00 Valarie Aldana Mai [facility] LACTATE DEHYDROGENASE 2023-09-10 00:26:00 Valarie Aldana Mai [facility] URIC ACID 2023-09-10 00:26:00 Sandy Aldana Mai [facility] CBC WITH DIFF 2023-09-10 00:26:00 Sandy Aldana Mai [facility] URINALYSIS 2023-09-10 00:26:00 Sandy Aldana Mai [facility] PROTEIN CREAT RATIO URINE RANDOM 2023-09-10 00:26:00 Valarie Aldana Mai [facility] POCT URINALYSIS 2023-09-09 20:15:00 Tasha Marroquin [facility] POCT URINALYSIS 2023-08-22 15:43:00 Tasha Marroquin [facility] POCT URINALYSIS 2023-08-08 15:03:00 Tasha Marroquin [facility] 3 HR GLUCOSE TOLERANCE TEST 2023-07-04 15:43:00 Tasha Marroquin [facility] 2 HR GLUCOSE TOLERANCE TEST 2023-07-04 14:43:00 Tasha Marroquin [facility] 1 HR GLUCOSE TOLERANCE TEST 2023-07-04 13:43:00 Tasha Marroquin [facility] GLUCOSE FASTING 2023-07-04 12:40:00 Tasha Marroquin [facility] 3 HR GLUCOSE TOLERANCE PANEL 2023-07-04 12:40:00 Tasha Marroquin [facility] POCT URINALYSIS W/O SPECIFIC GRAVITY 2023-06-27 15:04:00 Tasha Marroquin [facility] POCT TEST 2023-06-27 15:03:00 Ravi Marroquin [facility] ASSIGNMENT OF BENEFITS 2023-06-27 14:50:19 Docto r Unassigned, [place] [facility] Encounters Start Date/Time End Date/Time Encounter Type Admission Type Attending [facility] Facility Care Department Encounter ID Source 2023-09-09 23:26:32 Outpatient P [facility] EM[facility] [id number] [facility] 2023-12-25 14:30:00 2023-12-25 14:30:00 Outpatient R [facility] [id number] [facility] 2023-12-23 14:45:00 2023-12-23 15:32:01 Outpatient R SOURAVBONITA LOPEZ [facility] [id number] [facility] 2023-12-23 14:45:00 2023-12-23 15:32:01 [facility] EDUCATION COORDINATOR [facility] & CHILD [facility] 1.2.840.114 350.1.13.10 4.2.7.2.686 [id number] 107 [id number] [facility] 2023-12-18 14:15:00 2023-12-18 14:15:00 Outpatient R SOURAVJOHN BONITA [facility] [id number] [facility] 2023-12-16 14:45:00 2023-12-16 14:45:00 [facility]ION[facility] EDUCATION COORDINATOR [facility] 1.2.840.114 350.1.13.10 4.2.7.2.686 [id number] 107 [id number] [facility] 2023-12-16 14:45:00 2023-12-16 14:36:15 Outpatient R SOURAVBONITA LOPEZ [facility] [id number] [facility] 2023-12-15 09:30:00 2023-12-15 09:30:00 Outpatient P TEETEE, THERESE KINGSLEY, THERESEPANCHO KINGSLEY, THERESE [facility] [id number] [facility] 2023-12-11 14:30:00 2023-12-11 14:30:00 Outpatient R TASHA MARROQUIN [facility] [id number] [facility] 2023-12-09 13:15:00 2023-12-09 13:15:00 Outpatient R TASHA MARROQUIN [facility] [id number] [facility] 2023-12-04 08:00:00 2023-12-04 08:59:30 Outpatient R JOSELIN PARNELL [facility] [id number] [facility] 2023-12-04 08:00:00 2023-12-04 08:59:30 Routine Visit Risk, Ang-Rmchp-N p/High Joselin Parnell Risk, Ang-Rmchp-N p/High [facility] REGIONAL EDUCATION COORDINATOR [facility] & CHILD [facility] 1.2840.114 350.1.13.10 4.2.7.2.686 [id number] 107 [id number] [facility] 2023-12-01 07:30:00 2023-12-01 07:30:00 Outpatient R TASHA MARROQUIN [facility] [id number] [facility] 2023-10-28 00:00:00 2023-11-29 18:20:55 Patient Secure Msg Bonita Gann [facility] REGIONAL EDUCATION COORDINATOR [facility] & CHILD [facility] 1.840.114 350.1.13.10 4.2.7.2.686 [id number] 107 [id number] [facility] 2023-11-26 00:00:00 2023-11-26 16:54:55 Case Management Bonita Gann [facility] REGIONAL EDUCATION COORDINATOR [facility] & CHILD [facility] 1.2.840.114 350.1.13.10 4.2.7.2.686 [id number] [facility] 2023-11-26 00:00:00 2023-11-26 16:52:51 Case Management Bonita Gann [facility] REGIONAL EDUCATION COORDINATOR [facility] CHILD [facility] 1.2840.114 350.1.13.10 4.2.7.2.686 [id number] 107 [id number] [facility] 2023-11-26 08:30:00 2023-11-26 08:47:34 Routine Visit Risk, Ang-Rmchp-N p/High Nestor Naqvi Risk, Ang-Rmchp-N p/High [facility] REGIONAL EDUCATION COORDINATOR [facility] MATERNAL & CHILD [facility] .84.114 350.1.13.10 4.2.7.2.686 [id number] 107 [id number] [facility] 2023-11-26 08:00:00 2023-11-26 08:47:29 Outpatient R ERIN NAVNEET KHANNAVNEET [facility] [id number] [facility] 2023-11-26 08:00:00 2023-11-26 08:47:29 Employee Relations Assistant Visit Ultrasound, Luis Navneet Khan Jazmyn [facility] REGIONAL EDUCATION COORDINATOR [facility] MATERNAL & CHILD [facility] ..114 350.1.13.10 4.2.7.2.686 [id number] [facility] 2023-11-19 10:45:00 2023-11-19 10:45:00 Outpatient NESTOR VANCE KRISTIN [facility] [id number] [facility] 2023-11-18 00:00:00 2023-11-18 06:55:24 Case Management Bonita Gann [facility] REGIONAL EDUCATION COORDINATOR [facility] & CHILD [facility] ..114 350.1.13.10 4.2.7.2.686 [id number] 107 [id number] [facility] 2023-11-17 09:30:00 2023-11-17 12:27:02 Outpatient R THERESE KINGSLEY SANGEETA JAIN, SANGEETA [facility] [id number] [facility] 2023-11-17 09:30:00 2023-11-17 12:27:02 Employee Relations Assistant Visit Ultrasound, Therese Castillo [facility] REGIONAL EDUCATION COORDINATOR [facility] & CHILD [facility] .840.114 350.1.13.10 4.2.7.2.686 [id number] [facility] 2023-11-13 09:30:00 2023-11-13 10:33:53 Outpatient NESTOR VANCE KRISTIN [facility] [id number] [facility] 2023-11-13 09:30:00 2023-11-13 10:33:53 Routine Visit Risk, Ang-Rmchp-N p/High Nestor Naqvi N Risk, Ang-Rmchp-N p/High [facility] REGIONAL EDUCATION COORDINATOR [facility] & CHILD [facility] 1..840.114 350.1.13.10 4.2.7.2.686 [id number] 107 [id number] [facility] 2023-11-06 13:30:00 2023-11-06 13:59:26 Outpatient JOSELIN EMMANUEL [facility] [id number] [facility] 2023-11-06 13:30:00 2023-11-06 13:59:26 Routine Visit Risk, Ang-Rmchp-N p/High Joselin Parnell [facility] REGIONAL EDUCATION COORDINATOR [facility] & CHILD [facility] 1.2.840.114 350.1.13.10 4.2.7.2.686 [id number] [facility] 2023-11-05 15:45:00 2023-11-05 15:45:00 Outpatient R [facility] [id number] [facility] 2023-09-29 00:00:00 2023-11-01 18:23:14 Patient Secure Bonita Santizo [facility] REGIONAL EDUCATION COORDINATOR [facility] & CHILD [facility] .2.840.114 350.1.13.10 4.2.7.2.686 [id number] [facility] 2023-10-29 13:15:00 2023-10-29 13:15:00 Outpatient JOSELIN EMMANUEL [facility] [id number] [facility] 2023-10-22 13:30:00 2023-10-22 13:30:00 Outpatient NESTOR VANCE KRISTIN [facility] [id number] [facility] 2023-10-21 00:00:00 2023-10-21 11:57:17 Case Management Bonita Gann [facility] REGIONAL EDUCATION COORDINATOR [facility] & CHILD [facility] .0.114 350.1.13.10 4.2.7.2.686 [id number] 107 [id number] [facility] 2023-10-20 09:15:00 2023-10-20 10:23:52 Outpatient TESFAYE VARGAS SHANNON [facility] [id number] [facility] 2023-10-20 09:15:00 2023-10-20 10:23:52 Employee Relations Assistant Visit 1, [facility] Us Room Tesfaye Botello [facility] .114 350.1.13.10 4.2.7.2.686 [id number] [facility] 2023-10-15 15:00:00 2023-10-15 15:00:00 Outpatient NESTOR VANCE [facility] [id number] [facility] 2023-10-08 08:45:00 2023-10-08 09:29:23 Outpatient NESTOR VANCE [facility] [id number] [facility] 2023-10-08 08:45:00 2023-10-08 09:29:23 Office Visit Risk, Ang-Rmchp-N p/High Nestor Naqvi N [facility] REGIONAL EDUCATION COORDINATOR [facility] CHILD [facility] ..114 350.1.13.10 4.2.7.2.686 [id number] 107 [id number] [facility] 2023-09-30 00:00:00 2023-09-30 12:01:57 Case Management Bonita Gann [facility] REGIONAL EDUCATION COORDINATOR [facility] & CHILD [facility] .0.114 350.1.13.10 4.2.7.2.686 [id number] 107 [id number] [facility] 2023-09-23 09:30:00 2023-09-23 09:57:41 Outpatient R ROSIEJessi BONITA [facility] [id number] [facility] 2023-09-23 09:30:00 2023-09-23 09:57:41 Routine Visit Bonita Gann [facility] REGIONAL EDUCATION COORDINATOR [facility] & CHILD [facility] 1.2840.114 350.1.13.10 4.2.7.2.686 [id number] 107 [id number] [facility] 2023-08-11 00:00:00 2023-09-13 18:26:31 Patient Secure Msg Rosiejessi Bonita Bryan [facility] REGIONAL EDUCATION COORDINATOR [facility] & CHILD [facility] 1.84.114 350.1.13.10 4.2.7.2.686 [id number] [facility] 2023-09-09 18:55:00 2023-09-09 23:25:00 Outpatient P NAVNEET KHAN CHASEY [facility] [id number] [facility] 2023-09-09 18:55:00 2023-09-09 23:25:00 Hospital Encounter Navneet Khan [facility] 1..114 350.1.13.10 4.2.7.2.686 [id number] [facility] 2023-09-09 15:15:00 2023-09-09 15:55:55 Routine Visit Tasha Marroquin [facility] REGIONAL EDUCATION COORDINATOR [facility] & CHILD [facility] 1..114 350.1.13.10 4.2.7.2.686 [id number] [facility] 2023-09-09 13:00:00 2023-09-09 13:00:00 Outpatient P TASHA MARROQUIN [facility] [id number] [facility] 2023-08-04 00:00:00 2023-09-06 18:07:55 Patient Secure Tasha Cash [facility] REGIONAL EDUCATION COORDINATOR [facility] & CHILD [facility] 1..840.114 350.1.13.10 4.2.7.2.686 [id number] 107 [id number] [facility] 2023-09-05 09:30:00 2023-09-05 09:30:00 Outpatient BONITA BOND [facility] [id number] [facility] 2023-08-22 10:30:00 2023-08-22 11:01:14 Outpatient BONITA BOND [facility] [id number] [facility] 2023-08-22 10:30:00 2023-08-22 11:01:14 Routine Visit Bonita Gann [facility] REGIONAL EDUCATION COORDINATOR [facility] CHILD [facility] 1..840.114 350.1.13.10 4.2.7.2.686 [id number] [facility] 2023-08-12 08:15:00 2023-08-12 08:19:17 Outpatient BONITA BOND [facility] [id number] [facility] 2023-08-12 08:15:00 2023-08-12 08:19:17 Employee Relations Assistant Visit Lab, Ang-Rmchp Bonita Gann [facility] 1..840.114 350.1.13.10 4.2.7.2.686 [id number] [facility] 2023-08-08 10:00:00 2023-08-08 10:42:10 Outpatient BONITA BOND [facility] [id number] [facility] 2023-08-08 10:00:00 2023-08-08 10:42:10 Routine Visit Bonita Gann [facility] REGIONAL EDUCATION COORDINATOR [facility] MATERNAL & CHILD [facility] 1.2840.114 350.1.13.10 4.2.7.2.686 [id number] [facility] 2023-08-04 00:00:00 2023-08-04 00:00:00 Telephone Tasha Marroquin [facility] REGIONAL EDUCATION COORDINATOR [facility] & CHILD [facility] 1.2840.114 350.1.13.10 4.2.7.2.686 [id number] [facility] 2023-07-25 09:45:00 2023-07-25 09:45:00 Outpatient R TASHA MARROQUIN [facility] [id number] [facility] 2023-07-18 10:30:00 2023-07-18 10:30:00 Outpatient R HELADIO RESENDEZ [facility] [id number] [facility] 2023-07-11 10:30:00 2023-07-11 10:49:42 Outpatient R TASHA MARROQUIN [facility] [id number] [facility] 2023-07-11 10:30:00 2023-07-11 10:49:42 Nurse Visit Visit, Ang-Rmchp Nurse Tasha Marroquin [facility] REGIONAL EDUCATION COORDINATOR [facility] & CHILD [facility] 1.840.114 350.1.13.10 4.2.7.2.686 [id number] [facility] 2023-07-09 00:00:00 2023-07-09 00:00:00 Telephone Tasha Marroquin [facility] REGIONAL EDUCATION COORDINATOR [facility] & CHILD [facility] 1.2.840.114 350.1.13.10 4.2.7.2.686 [id number] [facility] 2023-07-07 00:00:00 2023-07-07 00:00:00 Telephone Tasha Marroquin [facility] REGIONAL EDUCATION COORDINATOR [facility] & CHILD [facility] 1.2.840.114 350.1.13.10 4.2.7.2.686 [id number] [facility] 2023-07-04 07:45:00 2023-07-04 10:43:06 Outpatient R TASHA MARROQUIN [facility] [id number] [facility] 2023-07-04 07:45:00 2023-07-04 10:43:06 Employee Relations Assistant Visit Lab, Ang-Rmchp Lopez Tasha Mendoza [facility] REGIONAL EDUCATION COORDINATOR [facility] & CHILD [facility] 1.2.840.114 350.1.13.10 4.2.7.2.686 [id number] [facility] 2023-06-27 10:00:00 2023-06-27 11:29:14 Outpatient R TASHA MARROQUIN [facility] [id number] [facility] 2023-06-27 10:00:00 2023-06-27 11:29:14 Initial Visit Dequanterribrett Tasha Mendoza [facility] REGIONAL EDUCATION COORDINATOR [facility] & CHILD [facility] 1.2.840.114 350.1.13.10 4.2.7.2.686 [id number] [facility] 2023-06-27 00:00:00 2023-06-27 00:00:00 Orders Only Doctor Unassigned, [place] [facility] 1.2.840.114 350.1.13.10 4.2.7.2.686 [id number] [facility] 2023-06-20 08:15:00 2023-06-20 08:15:00 Outpatient BONITA BOND [facility] [id number] [facility] 2022-10-01 13:11:29 2022-10-01 13:11:29 Outpatient DANICA [facility] [id number] Hernán Olea 2021-04-19 00:00:00 2021-04-19 00:00:00 Telephone Tasha Marroquin [facility] COORDINATOR [facility] 1..840.114 [id number] [facility] 2021-04-18 08:15:00 2021-04-18 08:56:46 Outpatient R TASHA MARROQUIN [facility] [id number] [facility] 2021-04-18 08:15:00 2021-04-18 08:56:46 Office Visit Tasha Marroquin [facility] EDUCATION COORDINATOR [facility] 1..840.114 [id number] [facility] 2021-04-18 08:15:00 2021-04-18 08:15:00 Outpatient R TASHA MARROQUIN [facility] [id number] [facility] 2021-03-29 00:00:00 2021-03-29 00:00:00 Telephone Tasha Marroquin [facility] EDUCATION COORDINATOR [facility] 1..840.114 [id number] [facility] 2021-03-28 11:00:00 2021-03-28 11:41:46 Outpatient R TASHA MARROQUIN [facility] [id number] [facility] 2021-03-28 11:00:00 2021-03-28 11:41:46 Routine Visit DequanterribrettTasha [facility] [facility] 1..840.114 350.1.13.10 4.2.7.2.686 [id number] [facility] 2021-03-14 10:06:36 2021-03-14 10:26:24 [facility] Za Jiang [facility] REGIONAL EDUCATION COORDINATOR [facility] MATERNAL & CHILD [facility] 1.0.114 350.1.13.10 4.2.7.2.686 [id number] [facility] 2021-03-14 10:00:00 2021-03-14 10:00:00 Outpatient R ZA JIANG [facility] [id number] [facility] 2021-03-06 07:07:00 2021-03-09 16:02:00 Inpatient P DELIA Lua [facility] [id number] [facility] 2021-03-06 07:07:00 2021-03-09 16:02:00 Hospital Encounter Delia Daylola seun [facility] 1..114 350.1.13.10 4.2.7.2.686 [id number] [facility] 2021-03-07 09:45:00 2021-03-07 09:45:00 Outpatient R MARIA DOLORES MIRANDA [facility] [id number] [facility] 2021-02-28 13:36:00 2021-03-01 16:30:00 Outpatient P EULA TORRES [facility] [id number] [facility] 2021-02-28 13:36:00 2021-03-01 16:30:00 [facility] 1..114 350.1.13.10 4.2.7.2.686 [id number] [facility] 2021-02-28 09:16:09 2021-02-28 09:51:32 Routine Visit Provider, GarlandRmchBonita Seymour [facility] REGIONAL EDUCATION COORDINATOR [facility] MATERNAL & CHILD [facility] 1..114 350.1.13.10 4.2.7.2.686 [id number] [facility] 2021-02-28 09:15:00 2021-02-28 09:51:32 Outpatient BONITA BOND [facility] [id number] [facility] 2021-02-28 09:15:00 2021-02-28 09:15:00 Outpatient R [facility] [id number] [facility] 2021-02-13 14:45:06 2021-02-13 15:46:31 Routine Visit Provider, Bonita Diaz [facility] REGIONAL EDUCATION COORDINATOR [facility] MATERNAL & [facility]ILD [facility] 1..840.114 350.1.13.10 4.2.7.2.686 [id number] [facility] 2021-02-13 14:45:00 2021-02-13 15:46:31 Outpatient BONITA BOND [facility] [id number] [facility] 2021-02-13 14:45:00 2021-02-13 15:46:31 [facility] [id number] [facility] 2021-02-13 00:00:00 2021-02-13 00:00:00 Orders Only Doctor Unassigned, [place] [facility] ..840.114 350.1.13.10 4.2.7.2.686 [id number] [facility] 2021-01-25 15:30:00 2021-01-25 15:30:00 Outpatient ZA FRANKS [facility] [id number] [facility] 2021-01-25 15:30:00 2021-01-25 15:30:00 Outpatient ZA FRANKS [facility] [id number] [facility] 2021-01-11 08:01:45 2021-01-11 08:59:30 Routine Visit Tasha Marroquin [facility] REGIONAL EDUCATION COORDINATOR [facility] 1..840.114 350.1.13.10 4.2.7.2.686 [id number] [facility] 2021-01-11 08:00:00 2021-01-11 08:59:30 Outpatient R TASHA MARROQUIN [facility] [id number] [facility] 2021-01-11 08:00:00 2021-01-11 08:00:00 Outpatient R VESNA MARROQUINOLA [facility] [id number] [facility] 2021-01-05 09:00:00 2021-01-05 09:00:00 Outpatient R TASHA MARROQUIN [facility] [id number] [facility] 2020-12-28 15:38:43 2020-12-28 16:19:56 Nurse Visit Visit, Malcolm-Rmchp Nurse Tasha Marroquin [facility] REGIONAL EDUCATION COORDINATOR [facility] ..840.114 350.1.13.10 4.2.7.2.686 [id number] [facility] 2020-12-28 15:30:00 2020-12-28 16:19:56 Outpatient R TASHA MARROQUIN [facility] [id number] [facility] 2020-12-28 15:30:00 2020-12-28 15:30:00 Outpatient R TASHA MARROQUIN [facility] [id number] [facility] 2020-12-28 10:00:00 2020-12-28 10:00:00 Outpatient R TASHA MARROQUIN [facility] [id number] [facility] 2020-12-28 00:00:00 2020-12-28 00:00:00 Telephone Tasha Marroquin [facility] REGIONAL EDUCATION COORDINATOR [facility] ..840.114 350.1.13.10 4.2.7.2.686 [id number] [facility] 2020-12-25 00:00:00 2020-12-25 00:00:00 Telephone Tasha Marroquin [facility] REGIONAL EDUCATION COORDINATOR [facility] 1.2.840.114 350.1.13.10 4.2.7.2.686 [id number] [facility] 2020-12-22 08:09:23 2020-12-22 08:39:24 Routine Visit Tasha Marroquin [facility] REGIONAL EDUCATION COORDINATOR [facility] 1.2.840.114 350.1.13.10 4.2.7.2.686 [id number] [facility] 2020-12-22 08:09:23 2020-12-22 08:39:24 Routine Visit Tasha Marroquin [facility] REGIONAL EDUCATION COORDINATOR [facility] 1.2.840.114 350.1.13.10 4.2.7.2.686 [id number] [facility] 2020-12-22 08:00:00 2020-12-22 08:39:24 Outpatient R TASHA MARROQUIN [facility] [id number] [facility] 2020-12-22 08:00:00 2020-12-22 08:00:00 Outpatient R TASHA MARROQUIN [facility] [id number] [facility] 2020-12-19 08:00:00 2020-12-19 08:00:00 Outpatient R TASHA MARROQUIN [facility] [id number] [facility] 2020-12-15 00:00:00 2020-12-15 00:00:00 Abstract Tasha Marroquin [facility] REGIONAL EDUCATION COORDINATOR [facility] 1.2.840.114 350.1.13.10 4.2.7.2.686 [id number] [facility] 2020-12-15 00:00:00 2020-12-15 00:00:00 Abstract DequanTasha lopez [facility] REGIONAL EDUCATION COORDINATOR [facility] 1.2.840.114 350.1.13.10 4.2.7.2.686 [id number] [facility] 2020-12-14 11:14:56 2020-12-14 11:59:56 Employee Relations Assistant Visit Ultrasound, Keenan Blake [facility] REGIONAL EDUCATION COORDINATOR [facility] CHILD [facility] 1.2.840.114 350.1.13.10 4.2.7.2.686 [id number] [facility] 2020-12-14 11:14:56 2020-12-14 11:59:56 Employee Relations Assistant Visit Ultrasound, Luis Li [facility] 1.2840.114 350.1.13.10 4.2.7.2.686 [id number] [facility] 2020-12-14 11:15:00 2020-12-14 11:59:29 Outpatient P KEENAN LI [facility] [id number] [facility] 2020-12-14 11:15:00 2020-12-14 11:15:00 Outpatient P [facility] [id number] [facility] 2020-12-04 14:16:32 2020-12-04 15:01:55 Routine Visit Tasha Marroquin Kelly [facility] REGIONAL EDUCATION COORDINATOR [facility] 1.2.840.114 350.1.13.10 4.2.7.2.686 [id number] [facility] 2020-12-04 14:16:32 2020-12-04 15:01:55 Routine Visit Tasha Marroquin [facility] REGIONAL EDUCATION COORDINATOR [facility] 1.2.840.114 350.1.13.10 4.2.7.2.686 [id number] [facility] 2020-12-04 14:15:00 2020-12-04 15:01:55 Outpatient R TASHA MARROQUIN [facility] [id number] [facility] 2020-12-04 14:15:00 2020-12-04 14:15:00 Outpatient R TASHA MARROQUIN [facility] [id number] [facility] 2020-11-21 00:00:00 2020-11-21 00:00:00 Telephone Tasha Marroquin [facility] REGIONAL EDUCATION COORDINATOR [facility] MATERNAL & CHILD [facility] ..840.114 350.1.13.10 4.2.7.2.686 [id number] [facility] 2020-11-13 11:15:00 2020-11-13 11:18:43 Outpatient P HELADIO RESENDEZ [facility] [id number] [facility] 2020-11-13 10:50:36 2020-11-13 11:18:43 Office Visit Hattie Barragan Joseph W [facility] REGIONAL EDUCATION COORDINATOR [facility] MATERNAL & [facility] ..840.114 350.1.13.10 4.2.7.2.686 [id number] [facility] 2020-11-13 11:15:00 2020-11-13 11:15:00 Outpatient HELADIO BENDER [facility] [id number] [facility] 2020-11-09 00:00:00 2020-11-09 00:00:00 Abstract Tasha Marroquin [facility] REGIONAL EDUCATION COORDINATOR [facility] ..840.114 350.1.13.10 4.2.7.2.686 [id number] [facility] 2020-11-08 13:00:00 2020-11-08 14:21:18 Outpatient P ALBERTO GUPTA [facility] [id number] [facility] 2020-11-08 12:58:45 2020-11-08 14:13:45 Employee Relations Assistant Visit Ultrasound, Alberto Bass [facility] REGIONAL EDUCATION COORDINATOR [facility] 1..840.114 350.1.13.10 4.2.7.2.686 [id number] [facility] 2020-11-08 13:00:00 2020-11-08 13:00:00 Outpatient P [facility] [id number] [facility] 2020-11-06 15:49:14 2020-11-06 16:22:03 Routine Visit Tasha Marroquin [facility] REGIONAL EDUCATION COORDINATOR [facility] MATERNAL & CHILD [facility] 1..840.114 350.1.13.10 4.2.7.2.686 [id number] [facility] 2020-11-06 15:45:00 2020-11-06 16:22:03 Outpatient R TASHA MARROQUIN [facility] [id number] [facility] 2020-11-06 15:45:00 2020-11-06 15:45:00 Outpatient R TASHA MARROQUIN [facility] [id number] [facility] 2020-11-06 00:00:00 2020-11-06 00:00:00 Orders Only Doctor Unassigned, [place] [facility] ..840.114 350.1.13.10 4.2.7.2.686 [id number] [facility] 2020-11-03 09:45:00 2020-11-03 09:45:00 Outpatient P [facility] [id number] [facility] 2020-11-03 09:45:00 2020-11-03 09:45:00 Outpatient P [facility] [id number] [facility] 2020-11-03 00:00:00 2020-11-03 00:00:00 Telephone Hattie Barragan [facility] [place] 1.840.114 350.1.13.10 4.2.7.2.686 [id number] [facility] 2020-10-12 10:45:00 2020-10-12 10:45:00 Outpatient R MOEBRETTTASHA [facility] [id number] [facility] 2020-10-09 15:03:05 2020-10-09 15:48:42 Routine Visit Tasha Marroquin [facility] REGIONAL EDUCATION COORDINATOR [facility] MATERNAL & CHILD [facility] 1.840.114 350.1.13.10 4.2.7.2.686 [id number] [facility] 2020-10-09 15:00:00 2020-10-09 15:48:42 Outpatient R LOPEZ TASHA [facility] [id number] [facility] 2020-10-09 15:00:00 2020-10-09 15:00:00 Outpatient R LOPEZTASHA [facility] [id number] [facility] 2020-09-25 13:08:12 2020-09-25 13:48:39 Employee Relations Assistant Visit 3, [facility] Us Room Tesfaye Botello [facility] 1.840.114 350.1.13.10 4.2.7.2.686 [id number] [facility] 2020-09-25 13:00:00 2020-09-25 13:48:39 Outpatient P TESFAYE BOTELLO SHANNON [facility] [id number] [facility] 2020-09-25 13:00:00 2020-09-25 13:00:00 Outpatient P [facility] [id number] [facility] 2020-09-25 00:00:00 2020-09-25 00:00:00 Abstract Tasha Marroquin [facility] REGIONAL EDUCATION COORDINATOR [facility] & [facility]ILD [facility] 1.2.840.114 350.1.13.10 4.2.7.2.686 [id number] [facility] 2020-09-14 08:00:00 2020-09-14 08:38:22 Outpatient R TASHA MARROQUIN [facility] [id number] [facility] 2020-09-14 08:05:03 2020-09-14 08:20:03 Routine Visit Tasha Marroquin [facility] REGIONAL EDUCATION COORDINATOR [facility] 1.2.840.114 350.1.13.10 4.2.7.2.686 [id number] [facility] 2020-09-14 08:00:00 2020-09-14 08:00:00 Outpatient R MOEBRETTTASHA [facility] [id number] [facility] 2020-08-24 08:15:06 2020-08-24 08:44:28 Employee Relations Assistant Visit Lab, [facility] B[facility] Tasha C [facility] REGIONAL EDUCATION COORDINATOR [facility] & [facility]ILD [facility] 1.2.840.114 350.1.13.10 4.2.7.2.686 [id number] [facility] 2020-08-24 08:15:06 2020-08-24 08:44:28 Employee Relations Assistant [facility] EDUCATION COORDINATOR [facility] & [facility]ILD [facility] 1.2.840.114 350.1.13.10 4.2.7.2.686 [id number] 2020-08-24 08:00:00 2020-08-24 08:44:28 Outpatient R MOEBRETT TASHA [facility] [id number] [facility] 2020-08-24 08:00:00 2020-08-24 08:00:00 Outpatient R MOEBRETTTASHA [facility] [id number] [facility] 2020-08-18 00:00:00 2020-08-18 00:00:00 Telephone Tasha Marroquin [facility] REGIONAL EDUCATION COORDINATOR [facility] 1.2.840.114 350.1.13.10 4.2.7.2.686 [id number] [facility] 2020-08-17 10:33:09 2020-08-17 11:32:56 Initial Visit Tasha Marroquin [facility] REGIONAL EDUCATION COORDINATOR [facility] 1.2.840.114 350.1.13.10 4.2.7.2.686 [id number] [facility] 2020-08-17 10:00:00 2020-08-17 11:32:56 Outpatient R TASHA MARROQUIN [facility] [id number] [facility] 2020-08-17 09:30:00 2020-08-17 09:30:00 Outpatient R TASHA MARROQUIN [facility] [id number] [facility] 2020-08-17 00:00:00 2020-08-17 00:00:00 Orders Only Doctor Unassigned, [place] [facility] 1.2.840.114 350.1.13.10 4.2.7.2.686 [id number] [facility] Results Test Description Test Time Test Comments Results Result Co mments Source [facility]CIFIC [id number] 19:04:00* Test Item Value Reference Range Interpretation Comme nts POCT U SP GRAV (test code = 3255) . 1.005-1.025 POCT PH U (test code = 3254) 6 mg/dl 5-8 POCT U LEUK EST (test code = 3263) Trace Negative - Negative POCT U NIT (test code = 3262) Neg Negative - Negati ve POCT U PROT (test code = 3259) Trace Negative - Negat amee POCT U GLU (test code = 3256) Nml Negative - Negati ve POCT U KETONE (test code = 3258) None Negative - Neg ative POCT U UROBILI (test code = 3260) . 0.2-1 POCT U BILI (test code = 3261) . Negative - Negat amee POCT U BLD (test code = 3257) Trace Negative - Negati ve POCT U COLOR (test code = 3266) . POCT U APPEAR (test code = 3267) . [facility] URINALYSIS W SPECIFIC [id number] 13:16:00* Test Item Value Reference Range Interpretation Comme nts POCT U SP GRAV (test code = 3255) . 1.005-1.025 POCT PH U (test code = 3254) 6 mg/dl 5-8 POCT U LEUK EST (test code = 3263) neg Negative - Negative POCT U NIT (test code = 3262) neg Negative - Negati ve POCT U PROT (test code = 3259) trace Negative - Negat amee POCT U GLU (test code = 3256) neg Negative - Negati ve POCT U KETONE (test code = 3258) neg Negative - Neg ative POCT U UROBILI (test code = 3260) . 0.2-1 POCT U BILI (test code = 3261) . Negative - Negat amee POCT U BLD (test code = 3257) neg Negative - Negati ve POCT U COLOR (test code = 3266) POCT U APPEAR (test code = 3267) [facility] URINALYSIS W SPECIFIC [id number] 13:38:00* Test Item Value Reference Range Interpretation Comme nts POCT U SP GRAV (test code = 3255) . 1.005-1.025 POCT PH U (test code = 3254) 7 mg/dl 5-8 POCT U LEUK EST (test code = 3263) trace Negative - Negative POCT U NIT (test code = 3262) neg Negative - Negati ve POCT U PROT (test code = 3259) trace Negative - Negat amee POCT U GLU (test code = 3256) neg Negative - Negati ve POCT U KETONE (test code = 3258) neg Negative - Neg ative POCT U UROBILI (test code = 3260) . 0.2-1 POCT U BILI (test code = 3261) . Negative - Negat amee POCT U BLD (test code = 3257) neg Negative - Negati ve POCT U COLOR (test code = 3266) . POCT U APPEAR (test code = 3267) . [facility] URINALYSIS W SPECIFIC [id number] 15:15:00* Test Item Value Reference Range Interpretation Comme nts POCT U SP GRAV (test code = 3255) . 1.005-1.025 POCT PH U (test code = 3254) 7 mg/dl 5-8 POCT U LEUK EST (test code = 3263) Neg Negative - Negative POCT U NIT (test code = 3262) Neg Negative - Negati ve POCT U PROT (test code = 3259) 1+ Negative - Negat amee POCT U GLU (test code = 3256) Nml Negative - Negati ve POCT U KETONE (test code = 3258) None Negative - Neg ative POCT U UROBILI (test code = 3260) . 0.2-1 POCT U BILI (test code = 3261) . Negative - Negat amee POCT U BLD (test code = 3257) Trace Negative - Negati ve POCT U COLOR (test code = 3266) . POCT U APPEAR (test code = 3267) . [facility] URINALYSIS W SPECIFIC [id number] 18:11:00* Test Item Value Reference Range Interpretation Comme nts POCT U SP GRAV (test code = 3255) . 1.005-1.025 POCT PH U (test code = 3254) 8 mg/dl 5-8 POCT U LEUK EST (test code = 3263) 1+ Negative - Negative POCT U NIT (test code = 3262) Neg Negative - Negati ve POCT U PROT (test code = 3259) Trace Negative - Negat amee POCT U GLU (test code = 3256) Nml Negative - Negati ve POCT U KETONE (test code = 3258) 1+ Negative - Neg ative POCT U UROBILI (test code = 3260) . 0.2-1 POCT U BILI (test code = 3261) . Negative - Negat amee POCT U BLD (test code = 3257) Trace Negative - Negati ve POCT U COLOR (test code = 3266) POCT U APPEAR (test code = 3267) [facility] URINALYSIS W SPECIFIC [id number] 14:00:00* Test Item Value Reference Range Interpretation Comme nts POCT U SP GRAV (test code = 3255) . 1.005-1.025 POCT PH U (test code = 3254) 7 mg/dl 5-8 POCT U LEUK EST (test code = 3263) neg Negative - Negative POCT U NIT (test code = 3262) neg Negative - Negati ve POCT U PROT (test code = 3259) trace Negative - Negat amee POCT U GLU (test code = 3256) neg Negative - Negati ve POCT U KETONE (test code = 3258) neg Negative - Neg ative POCT U UROBILI (test code = 3260) . 0.2-1 POCT U BILI (test code = 3261) . Negative - Negat amee POCT U BLD (test code = 3257) neg Negative - Negati ve POCT U COLOR (test code = 3266) POCT U APPEAR (test code = 3267) [facility] URINALYSIS W SPECIFIC [id number] 14:40:00* Test Item Value Reference Range Interpretation Comme nts POCT U SP GRAV (test code = 3255) . 1.005-1.025 POCT PH U (test code = 3254) 8 mg/dl 5-8 POCT U LEUK EST (test code = 3263) Neg Negative - Negative POCT U NIT (test code = 3262) Neg Negative - Negati ve POCT U PROT (test code = 3259) Trace Negative - Negat amee POCT U GLU (test code = 3256) Nml Negative - Negati ve POCT U KETONE (test code = 3258) None Negative - Neg ative POCT U UROBILI (test code = 3260) . 0.2-1 POCT U BILI (test code = 3261) . Negative - Negat amee POCT U BLD (test code = 3257) Trace Negative - Negati ve POCT U COLOR (test code = 3266) . POCT U APPEAR (test code = 3267) .... [facility] [id number] 01:13:49* Test Item Value Reference Range Interpretation Comme nts URIC ACID (test code = 4032275697) 3.2 mg/dL 2.9-6.0 Lab Interpretation (test cod e = 80067-5) Normal [facility]AT[facility] [id number] 01:13:49* Test Item Value Reference Range Interpretation Comme nts CREATININE (test code = 2160-0) 0.33 mg/dL 0.50-1.04 L eGFR (test code = 91654-3) 149.6 mL/min/1.73m2 CKD-EPI eGFR (2020). Assuming creatinine has been stable day-to-day for at least three months, the eGFR indicates Category G1 (>= 90 mL/min/1.73 m2) Lab Interpretation (test code = 66586-4) Abnormal [facility] (ASPARTATE AMINO TRANSFER)2023-09-10 01:13:49* Test Item Value Reference Range Interpretation Comme [facility] AST(SGOT) (test code = 1757832981) 17 U/L 13-40 Lab Interpretation (test cod e = 23824-8) Normal [facility] CenterALANINE AMINO TRANSFERASE([id number] 01:13:49* Test Item Value Reference Range Interpretation Comme nts ALTv (test code = 1742-6) 14 U/L 5-35 Lab Interpretation (test cod e = 49831-0) Normal [facility] CenterLACTATE [id number] 01:13:08* Test Item Value Reference Range Interpretation Comme nts LDH (test code = 4977360539) 197 U/L 120-246 Lab Interpretation (test cod e = 39398-6) Normal [facility] CenterCBC WITH [id number] 00:54:23* Test Item Value Reference Range Interpretation Comme nts WBC (test code = 6690-2) 9.80 4.30-11.10 RBC (test code = 789-8) 3.81 3.93-5.25 L HGB (test code = 718-7) 11.7 g/dL 11.6-15.0 HCT (test code = 4544-3) 33.9 % 35.7-45.2 L MCV (test code = 787-2) 89.0 fL 80.6-95.5 MCH (test code = 785-6) 30.7 pg 25.9-32.8 MCHC (test code = 786-4) 34.5 g/dL 31.6-35.1 RDW-SD (test code = 10332-1) 41.3 fL 39.0-49.9 RDW-CV (test code = 788-0) 12.7 % 12.0-15.5 PLT (test code = 777-3) 245 166-358 MPV (test code = 85550-4) 11.3 fL 9.5-12.9 NRBC/100 WBC (test code = 2129381224) 0.0 0.0-10.0 NRBC x10^3 (test code = 9194873116) See_Comment [Automated messa ge] The system which generated this result transmitted reference range: 10*3/?L. The reference range was not used to interpret this result as normal/abnormal. GRAN MAT (NEUT) % (test code = 770-8) 68.6 % IMM GRAN % (test code = 7680874116) 0.60 % LYMPH % (test code = 736-9) 23.4 % MONO % (test code = 5905-5) 6.3 % EOS % (test code = 713-8) 0.8 % BASO % (test code = 706-2) 0.3 % GRAN MAT x10^3(ANC) (test code = 2711618852) 6.72 10*3/uL 1.88-7.09 IMM GRAN x10^3 (test code = 7358602011) 0.06 10*3/uL 0.00-0.06 LYMPH x10^3 (test code = 731-0) 2.29 10*3/uL 1.32-3.29 MONO x10^3 (test code = 742-7) 0.62 10*3/uL 0.33-0.92 EOS x10^3 (test code = 711-2) 0.08 10*3/uL 0.03-0.39 BASO x10^3 (test code = 704-7) 0.03 10*3/uL 0.01-0.07 Lab Interpretation (test code = 05646-4) Abnormal [facility] GLUCOSE (AUTOMATED)2023-09-10 00:30:01* Test Item Value Reference Range Interpretation Comme nts POCT GLU (test code = 3058030073) 72 mg/dL 70-110 Lab Interpretation (test cod e = 95055-4) Normal [facility] URINALYSIS W SPECIFIC [id number] 20:15:00* Test Item Value Reference Range Interpretation Comme nts POCT U SP GRAV (test code = 3255) . 1.005-1.025 POCT PH U (test code = 3254) . 5-8 POCT U LEUK EST (test code = 3263) . Negative - N egative POCT U NIT (test code = 3262) . Negative - Negati ve POCT U PROT (test code = 3259) neg Negative - Negat amee POCT U GLU (test code = 3256) 50 Negative - Negati ve POCT U KETONE (test code = 3258) . Negative - Neg ative POCT U UROBILI (test code = 3260) . 0.2-1 POCT U BILI (test code = 3261) . Negative - Negat amee POCT U BLD (test code = 3257) . Negative - Negati ve POCT U COLOR (test code = 3266) POCT U APPEAR (test code = 3267) [facility] URINALYSIS W SPECIFIC [id number] 20:15:00* Test Item Value Reference Range Interpretation Comme nts POCT U SP GRAV (test code = 3255) . 1.005-1.025 POCT PH U (test code = 3254) . 5-8 POCT U LEUK EST (test code = 3263) . Negative - N egative POCT U NIT (test code = 3262) . Negative - Negati ve POCT U PROT (test code = 3259) neg Negative - Negat amee POCT U GLU (test code = 3256) 50 Negative - Negati ve POCT U KETONE (test code = 3258) . Negative - Neg ative POCT U UROBILI (test code = 3260) . 0.2-1 POCT U BILI (test code = 3261) . Negative - Negat amee POCT U BLD (test code = 3257) . Negative - Negati ve POCT U COLOR (test code = 3266) POCT U APPEAR (test code = 3267) [facility] URINALYSIS W SPECIFIC [id number] 15:45:00* Test Item Value Reference Range Interpretation Comme nts POCT U SP GRAV (test code = 3255) . 1.005-1.025 POCT PH U (test code = 3254) 7 mg/dl 5-8 POCT U LEUK EST (test code = 3263) trace Negative - Negative POCT U NIT (test code = 3262) neg Negative - Negati ve POCT U PROT (test code = 3259) trace Negative - Negat amee POCT U GLU (test code = 3256) neg Negative - Negati ve POCT U KETONE (test code = 3258) 2+ Negative - Neg ative POCT U UROBILI (test code = 3260) . 0.2-1 POCT U BILI (test code = 3261) . Negative - Negat amee POCT U BLD (test code = 3257) neg Negative - Negati ve POCT U COLOR (test code = 3266) . POCT U APPEAR (test code = 3267) . [facility] URINALYSIS W SPECIFIC [id number] 15:03:00* Test Item Value Reference Range Interpretation Comme nts POCT U SP GRAV (test code = 3255) . 1.005-1.025 POCT PH U (test code = 3254) 6 mg/dl 5-8 POCT U LEUK EST (test code = 3263) Neg Negative - Negative POCT U NIT (test code = 3262) Neg Negative - Negati ve POCT U PROT (test code = 3259) Trace Negative - Negat amee POCT U GLU (test code = 3256) Nml Negative - Negati ve POCT U KETONE (test code = 3258) None Negative - Neg ative POCT U UROBILI (test code = 3260) . 0.2-1 POCT U BILI (test code = 3261) . Negative - Negat amee POCT U BLD (test code = 3257) Neg Negative - Negati ve POCT U COLOR (test code = 3266) POCT U APPEAR (test code = 3267) [facility] URINALYSIS W SPECIFIC [id number] 15:03:00* Test Item Value Reference Range Interpretation Comme nts POCT U SP GRAV (test code = 3255) . 1.005-1.025 POCT PH U (test code = 3254) 6 mg/dl 5-8 POCT U LEUK EST (test code = 3263) Neg Negative - Negative POCT U NIT (test code = 3262) Neg Negative - Negati ve POCT U PROT (test code = 3259) Trace Negative - Negat amee POCT U GLU (test code = 3256) Nml Negative - Negati ve POCT U KETONE (test code = 3258) None Negative - Neg ative POCT U UROBILI (test code = 3260) . 0.2-1 POCT U BILI (test code = 3261) . Negative - Negat amee POCT U BLD (test code = 3257) Neg Negative - Negati ve POCT U COLOR (test code = 3266) POCT U APPEAR (test code = 3267) [facility]2 HR GLUCOSE TOLERANCE [id number] 04:03:52 * Test Item Value Reference Range Interpretation Comme nts GLUC 2 HR (test code = 0849402240) 181 mg/dL 70-120 H Lab Interpretation (test cod e = 68701-1) Abnormal [facility] [id number] 15:04:00* Test Item Value Reference Range Interpretation Comme nts POCT PREG (test code = 1605) Positive On board controls acceptable with C Line (test code = 3574) Yes POCT PREG LOT # (test code = 3575) POCT PREG TEST DATE ( test code = 3576) [facility] Urinalysis w/o Specific [id number] 15:04:00* Test Item Value Reference Range Interpretation Comme nts POCT PH U (test code = 3254) 6 mg/dl 5-8 POCT U LEUK EST (test code = 3263) neg Negative - Negative POCT U NIT (test code = 3262) neg Negative - Negati ve POCT U PROT (test code = 3259) trace Negative - Negat amee POCT U GLU (test code = 3256) neg Negative - Negati ve POCT U KETONE (test code = 3258) + Negative - Neg ative POCT U BLD (test code = 3257) trace Negative - Negati ve [facility] [id number] 15:04:00* Test Item Value Reference Range Interpretation Comme nts POCT PREG (test code = 1605) Positive On board controls acceptable with C Line (test code = 3574) Yes POCT PREG LOT # (test code = 3575) POCT PREG TEST DATE ( test code = 3576) [facility] Urinalysis w/o Specific [id number] 15:04:00* Test Item Value Reference Range Interpretation Comme nts POCT PH U (test code = 3254) 6 mg/dl 5-8 POCT U LEUK EST (test code = 3263) neg Negative - Negative POCT U NIT (test code = 3262) neg Negative - Negati ve POCT U PROT (test code = 3259) trace Negative - Negat amee POCT U GLU (test code = 3256) neg Negative - Negati ve POCT U KETONE (test code = 3258) + Negative - Neg ative POCT U BLD (test code = 3257) trace Negative - Negati ve [facility], NAAT, [id number] 19:58:11* Test Item Value Reference Range Interpretation Comme nts CHLAMYDIA, NAAT, URINE (test code = 06440) NEGATIVE NEGATIVE Testing is perfo rmed with Jami MELISSA 6800/8800 systems usingreal-time polymerase chain reaction (PCR) method. A negative result does not exclude low level infection, specimensampling error, or collection error. GONORRHEA, NAAT, URINE (test code = 82157) NEGATIVE NEGATIVE Testing is perfo rmed with Jami MELISAS 6800/8800 systems usingreal-time polymerase chain reaction (PCR) method. A negative result does not exclude low level infection, specimensampling error, or collection error. TSH, THIRD [id number] 06:15:18* Test Item Value Reference Range Interpretation Comme nts TSH, THIRD GENERATION (test code = 2821) 2.670 UIU/ML 0.400-4.100 RPR REFLEX TO T. PALLIDUM - [id number] 04:31:49* Test Item Value Reference Range Interpretation Comme nts RPR (test code = 02299) NON-REACTIVE NON-REACTIVE RPR TITER (test code = 3500) NOT INDIC. TITER NOT INDIC. HEPATITIS PANEL, [id number] 04:30:55* Test Item Value Reference Range Interpretation Comme nts HEPATITIS A IgM (test code = 11791) NON-REACTIVE NON-REACTIVE HEPATITIS B CORE IgM (test code = 4644) NON-REACTIVE NON-REACTIVE HEPATITIS B SURF AG (test code = 2739) NON-REACTIVE NON-REACTIVE HEPATITIS C ANTIBODY (test code = 4675) NON-REACTIVE NON-REACTIVE INTERPRETATION HEPATITIS A: (test code = 2552) (NOTE) Hepatitis A serology shows no evidence of acute hepatitis A. INTERPRETATION HEPATITIS B: (test code = 96258) (NOTE) Hepatitis B serology shows no evidence of acute hepatitis B andno indication of exposure to hepatitis B virus in the previous prabha eight months. INTERPRETATION HEPATITIS C: (test code = 46181) (NOTE) Hepatitis C serology shows no evidence of exposure to hepatitisC virus at this time. It can take up to 12 months after exposure tothe hepatitis C virus for antibodies to become detectable in the blood in certain patients. HIV 1/2 4TH GEN, RFLX [id number] 04:30:55* Test Item Value Reference Range Interpretation Comme nts HIV 1/2 4TH GEN, RFLX CONF (test code = 3514) NON-REACTIVE NON-REACTIVE UNLESS OTHERWISE INDICATED, ALL TESTING PERFORMED AT [facility] [address] [place] [address] MEAT STRINGER: JESUS MEZA M.D. CLIA NUMBER [id number] [facility] [place]. [id number] COMPREHENSIVE METABOLIC [id number] 03:44:43* Test Item Value Reference Range Interpretation Comme nts GLUCOSE (test code = 2217) 89 MG/DL 70-99 BUN (test code = 2208) 11 MG/DL 6-20 CREATININE (test code = 2214) 0.57 MG/DL 0.60-1.30 L eGFR (2020 CKD-EPI) (test code = 43304) 132 ML/MIN/1.73 >60 CALC BUN/CREAT (test code = 2234) 19 RATIO 6-28 SODIUM (test code = 2230) 139 MEQ/L 133-146 POTASSIUM (test code = 222) 4.1 MEQ/L 3.5-5.4 CHLORIDE (test code = 2214) 103 MEQ/L 95-107 CARBON DIOXIDE (test code = 2205) 23 MEQ/L 19-31 CALCIUM (test code = 2208) 9.9 MG/DL 8.5-10.5 PROTEIN, TOTAL (test code = 2228) 7.6 G/DL 6.1-8.3 ALBUMIN (test code = 2200) 4.5 G/DL 3.5-5.2 CALC GLOBULIN (test code = 2239) 3.1 G/DL 1.9-3.7 CALC A/G RATIO (test code = 2233) 1.5 RATIO 1.0-2.6 BILIRUBIN, TOTAL (test code = 2206) <0.2 MG/DL See_Comment [Automated me ssage] The system which generated this result transmitted reference range: <=1.2. The reference range was not used to interpret this result as normal/abnormal. ALKALINE PHOSPHATASE (test code = 2203) 70 U/L 38-117 AST (test code = 2217) 24 U/L 9-40 ALT (test code = 2218) 29 U/L 5-40 LIPID [id number] 03:44:43* Test Item Value Reference Range Interpretation Comme nts CHOLESTEROL (test code = 2210) 198 MG/DL <200 TRIGLYCERIDES (test code = 2231) 122 MG/DL <150 HDL CHOLESTEROL (test code = 2219) 45 MG/DL >39 CALC LDL CHOL (test code = 2236) 130 MG/DL <100 H NOTE: CALCULATED LDL IS BASED ON NEDA-ALLISON METHOD WHICHINCLUDES ADJUSTABLE TRIGLYCERIDE:VLDL CHOLESTEROL RATIO.THIS FACTOR VARIES BY MEASURED TRIGLYCERIDE AND NON-HDLCHOLESTEROL CONCENTRATIONS WITH INCREASED CALCULATED LDL SEENIN HIGHER TRIGLYCERIDE OR LOWER NON-HDL SPECIMENS. FOR MOREINFORMATION, SEE CLIENT ANNOUNCEMENT AT [email or web address] RATIO LDL/HDL (test code = 2237) 2.89 RATIO <3.22 CBC W/AUTO DIFF WITH [id number] 02:43:51* Test Item Value Reference Range Interpretation Comme nts WBC (test code = 1001) 6.8 K/UL 3.5-11.0 RBC (test code = 1002) 4.73 M/UL 3.80-5.40 HEMOGLOBIN (test code = 1003) 14.4 G/DL 11.5-15.5 HEMATOCRIT (test code = 1004) 42.5 % 34.0-45.0 MCV (test code = 1005) 89.9 fL 80.0-99.0 MCH (test code = 1006) 30.4 PG 25.0-33.0 MCHC (test code = 1007) 33.9 G/DL 31.0-36.0 RDW (test code = 1038) 12.0 % 11.5-15.0 NEUTROPHILS (test code = 1008) 55.7 % LYMPHOCYTES (test code = 1010) 36.6 % MONOCYTES (test code = 1011) 5.6 % EOSINOPHILS (test code = 1012) 1.6 % BASOPHILS (test code = 1013) 0.4 % IMMATURE GRANULOCYTES (test code = 1036) 0.1 % NUCLEATED RBCS (test code = 1065) 0.0 /100 WBC'S See_Comment [Automated messa ge] The system which generated this result transmitted reference range: 0.0. The reference range was not used to interpret this result as normal/abnormal. PLATELET COUNT (test code = 1015) 315 K/UL 130-400 ABSOLUTE NEUTROPHILS (test code = 1066) 3.78 K/UL 1.50-7.50 ABSOLUTE LYMPHOCYTES (test code = 1067) 2.49 K/UL 1.00-4.00 ABSOLUTE MONOCYTES (test code = 1068) 0.38 K/UL 0.2-3.8 ABSOLUTE EOSINOPHILS (test code = 1040) 0.11 K/UL 0.00-0.50 ABSOLUTE BASOPHILS (test code = 1069) 0.03 K/UL 0.00-0.20 ABS IMMATURE GRANULOCYTES (test code = 1020) 0.01 K/UL 0.00-0.10 ABS NUCLEATED RBCS (test code = 14812) 0.00 K/UL 0.00-0.11 Notes Date/Time Note Provider Source 2023-10-30 14:29:05 Patient has appointment scheduled for 11/05/23 with High [facility]. Hakeem Vidal [facility] 2023-10-30 07:45:58 Yes, she can be seen with Nestor next week. [facility] 2023-10-28 11:50:43 Called pt to discuss. No answer. Left vm. Margarita Brunson RN 10/28/23 11:51 AM [facility] 2023-09-30 12:02:06 I just reordered the ultrasound [facility] 2023-09-30 06:53:30 She shouldn't since she is rescheduling the ultrasound from 09/08 that was cancelled. I sent an email the the manager to see why they didn't reschedule her. [facility] 2023-08-04 13:14:02 Patient stated she is calling to schedule USG but when the call is picked up they disconnect the call. Informed patient USG department is the only department able to schedule USG and to try again. Informed to call back if still having issues, verbalized understanding. Britta Morales LVN [facility] 2023-08-04 13:02:09 Copied from [facility] #[id number]. Topic: Clinical - Referral >> Aug 04, 2023 12:59 PM Patient Hydraulic Billet Maker wrote: Patient calling to schedule US appt. Please send referral Shayy Morales [facility] 2023-07-09 14:49:05 Called pt, pharmacy needs insurance on file to process rx. Advised will need to provide pharmacy was insurance info. If PA needed then pharmacy to fax us. Pt verbalized understanding. Margarita Brunson RN 07/09/23 2:49 PM [facility] 2023-07-09 14:40:57 Copied from [facility] #[id number]. Topic: Clinical - Order >> Jul 09, 2023 2:38 PM Patient Hydraulic Billet Maker wrote: David Carter is a 23 year old female requesting call back states she went to [facility] for supplies and was told would have to pay or to contact ob to assist with getting it covered by medicaid. Please advise [phone] (home) Almaz Rehman [facility] 2023-07-07 09:29:03 Patient informed USG orders were placed and number given to USG department. Patient informed of results for 3 hr gtt and need for gdm teaching. Nurse visit made for 4/5 d/t pt request, informed to bring supplies to appt, verbalized understanding. 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
[2023-12-24] MEDS ORDERED: ACETAMINOPHEN 500 MG TAB ONE (22:02)
[2023-12-24] MEDS ORDERED: METOCLOPRAMIDE 10 MG/2mL INJ ONE (22:03)
[2023-12-24] MEDS ORDERED: DIPHENHYDRAMINE 50 MG/ML VIAL ONE (22:03)
[2023-12-24] MEDS ORDERED: NA CHLORIDE 0.9% 1,000 ML ONE (22:03)
[2023-12-24 22:16] LABS: Absolute Eosinophils 0.1 K/uL (0-0.5); Absolute Lymphocytes (CBC) 1.7 K/uL (0.7-4.9); Absolute Monocytes 0.4 K/uL (0.1-1.3); Absolute Neutrophil 4.1 K/uL (1.8-8.0); Basophils % 0.4 % (0-1.3); Eosinophils % 0.9 % (0-4.4); Hematocrit 31.1 % (36.0-45.0); Hemoglobin 10.6 g/dL (12.0-15.0); Lymphocytes % 27.1 % (15.3-44.8); MCH 28.2 pg (27.0-35.0); MCV 82.9 fL (80-100); MPV 9.3 fL (7.6-11.3); Monocytes % 5.9 % (3.3-12.3); Neutrophils % 65.7 % (41.7-73.7); Nucleated Red Blood Cells % 0.1 % (0-0); Platelets 250 thou/uL (152-406); RBC Red Blood Cell Count 3.75 M/uL (3.86-4.86); Red Cell Distribution Width 13.7 % (12.1-15.2)
[2023-12-24 22:31] LABS: ALT/SGPT 16 U/L (13-56); Albumin 2.5 g/dL (3.4-5.0); Albumin/Globulin Ratio 0.5 (1.1-1.8); Alkaline Phosphatase 134 U/L (45-117); Anion Gap 12.5 mEq/L (5.0-15.0); BUN Blood Urea Nitrogen 7 mg/dL (7-18); Bicarbonate 22 mEq/L (21-32); Globulin 4.6 g/dL (2.3-3.5); Glomerular Filtration Rate 142 ml/min (=/>90); Glucose Level 128 mg/dL (74-106); Potassium 3.5 mEq/L (3.5-5.1); Protein, Total 7.1 g/dL (6.4-8.2); Sodium Level 137 mEq/L (136-145)
[2023-12-24 22:39] LABS: AST/SGOT < 10 U/L (15-37); Bilirubin Total < 0.2 mg/dL (0.2-1.0)
--- NOTE | 2023-12-24 23:40 | ER ---
Nurse's Notes [facility] Name: Sweta Carter Age: 23 yrs Sex: Female : 2000 Arrival Date: 12/24/2023 Time: 21:12 Bed 2 Private MD: Diagnosis: Migraine without aura, not intractable; third trimester, history of migraine headaches Presentation: 12/23 21:26 Chief complaint: Patient states: this morning woke up with a migraine, blood pressure tm6 is high, 36 weeks . 21:28 Coronavirus screen: Vaccine status: Patient reports receiving the 2nd dose of the covid tm6 vaccine. Ebola Screen: Patient negative for fever greater than or equal to 101.5 degrees Fahrenheit, and additional compatible Ebola Virus Disease symptoms Patient denies exposure to infectious person. Patient denies travel to an Ebola-affected area in the 21 days before illness onset. No symptoms or risks identified at this time. Initial Sepsis Screen: Does the patient meet any 2 criteria? No. Patient's initial sepsis screen is negative. Does the patient have a suspected source of infection? No. Patient's initial sepsis screen is negative. Risk Assessment: Do you want to hurt yourself or someone else? Patient reports no desire to harm self or others. Onset of symptoms was December 24, 2023. 21:28 Method Of Arrival: Ambulatory tm6 21:28 Acuity: RUTHIE 3 tm6 Triage Assessment: 21:28 General: Appears in no apparent distress. Behavior is calm, cooperative. Pain: tm6 Complains of pain in head Pain currently is 9 out of 10 on a pain scale. Quality of pain is described as aching, Pain began 0430 this morning. EENT: No signs and/or symptoms were reported regarding the EENT system. Neuro: Level of Consciousness is awake, alert, obeys commands, Oriented to person, place, time, situation, Reports headache. Cardiovascular: Patient's skin is warm and dry. Respiratory: Airway is patent Respiratory effort is even, unlabored, Respiratory pattern is regular, symmetrical. GI: No signs and/or symptoms were reported involving the gastrointestinal system. Abdomen is round . : No signs and/or symptoms were reported regarding the genitourinary system. Derm: No signs and/or symptoms reported regarding the dermatologic system. Musculoskeletal: No signs and/or symptoms reported regarding the musculoskeletal system. 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 - Infectious Disease History:: Denies. - Social history:: Smoking status: Patient denies any tobacco usage or history of. - Family history:: not pertinent. Screenin:14 [facility] ED Fall Risk Assessment (Adult) History of falling in the last 3 months, dd2 including since admission No falls in past 3 months (0 pts) Confusion or Disorientation No (0 pts) Intoxicated or Sedated No (0 pts) Impaired Gait No (0 pts) Mobility Assist Device Used No (0 pt) Altered Elimination No (0 pt) Score/Fall Risk Level 0 - 2 = Low Risk Oriented to surroundings, Maintained a safe environment, Educated pt \T\ family on fall prevention, incl call for assistance when getting out of bed, Hourly rounding (assess needs \T\ fall precautionary measures) done. Abuse screen: Denies threats or abuse. Nutritional screening: No deficits noted. Tuberculosis screening: No symptoms or risk factors identified. Assessment: 21:40 Reassessment: No changes from previously documented assessment. dd2 23:16 Reassessment: Pt resting with eyes closed. respirations even and unlabored. vss. dd2 Vital Signs: 21:25 BP 127 / 93; Pulse 80; Resp 18; Temp 98.6(O); Pulse Ox 100% on R/A; Weight 92.08 kg; tm6 Height 5 ft. 3 in. ; Pain 9/10; 22:13 BP 131 / 92; Pulse 85; Resp 16; Pulse Ox 98% ; Pain 6/10; dd2 23:16 BP 120 / 82; Pulse 80; Resp 15; Pulse Ox 99% ; Pain 0/10; dd2 23:53 BP 120 / 82; Pulse 83; Resp 16; Pulse Ox 98% ; Pain 0/10; dd2 21:25 Body Mass Index 35.96 (92.08 kg, 160.02 cm) tm6 21:25 Pain Scale: Adult tm6 22:13 Pain Scale: Adult dd2 23:16 Pain Scale: Adult dd2 23:53 Pain Scale: Adult dd2 [place] Coma Score: 21:51 Eye Response: spontaneous(4). Motor Response: obeys commands(6). Verbal Response: sp4 oriented(5). Total: 15. 23:41 Eye Response: spontaneous(4). Motor Response: obeys commands(6). Verbal Response: sp4 oriented(5). Total: 15. ED Course: 21:25 Patient arrived in ED. gm2 21:28 Triage completed. tm6 21:28 Arm band placed on left wrist. tm6 21:35 STEPHON FLOWERS RN is Primary Nurse. dd2 21:37 Elías Sarkar MD is Attending Physician. sp4 22:11 No provider procedures requiring assistance completed. Initial lab(s) drawn, by me, dd2 sent to lab. Inserted saline lock: 20 gauge in right antecubital area, using aseptic technique. Blood collected. Flushed with 10 mL NS. 22:14 No apparent distress. Resting quietly. dd2 22:14 Patient has correct armband on for positive identification. Placed in gown. Bed in low dd2 position. Call light in reach. Side rails up X 1. Provided Education on: MEDICATIONS, CALL LIGHT, LAB AND RESULT TIMES. 22:14 Client placed on continuous cardiac and pulse oximetry monitoring. NIBP monitoring dd2 applied. Door closed. Noise minimized. Verbal reassurance given. PILLOW AND BLANKET OFFERED. 23:53 IV discontinued, intact, bleeding controlled, No redness/swelling at site. Pressure dd2 dressing applied. Administered Medications: 22:13 Drug: metoCLOPramide IVP 10 mg IVP once; over 1 to 2 minutes Route: IVP; Site: right dd2 antecubital; 22:28 Follow up: Response: No adverse reaction dd2 22:13 Drug: NS 0.9% IV 1000 ml IV at 1 bolus Per protocol; 1000 mL bolus Route: IV; Rate: 1 dd2 bolus; Site: right antecubital; 22:28 Follow up: Response: No adverse reaction dd2 23:13 Follow up: Response: No adverse reaction; IV Status: Completed infusion; IV Intake: dd2 1000ml 22:13 Drug: diphenhydrAMINE IVP 50 mg IVP once Route: IVP; Site: right antecubital; dd2 22:28 Follow up: Response: No adverse reaction dd2 22:13 Drug: Acetaminophen PO 1000 mg PO once Route: PO; dd2 22:43 Follow up: Response: No adverse reaction dd2 Medication: 23:53 VIS not applicable for this client. dd2 Intake: 23:13 IV: 1000ml; Total: 1000ml. dd2 Outcome: 23:40 Discharge ordered by . spEdwardo 23:54 Discharged to home ambulatory, dd2 23:54 Condition: stable 23:54 Discharge instructions given to patient, Instructed on discharge instructions, follow up and referral plans. medication usage, Demonstrated understanding of instructions, follow-up care, medications, Prescriptions given X 1, 23:55 Patient left the ED. dd2 Signatures: Elías Sarkar MD MD sp4 Christel Cartwright gm2 Giselle Eduardo RN RN tm6 STEPHON FLOWERS RN RN dd2
--- NOTE | 2023-12-24 23:40 | EDPHYS ---
Physician Documentation [facility] Name: Sweta Carter Age: 23 yrs Sex: Female : 2000 Arrival Date: 12/24/2023 Time: 21:12 Bed 2 Private MD: ED Physician Elías Sarkar HPI: 12/23 21:37 This 23 yrs old Female presents to ER via Ambulatory with complaints of sp4 Headache - 36 weeks . 21:49 Patient is a very pleasant 23-year-old female who presents acute onset migraine sp4 headache left-sided migraine, starting this morning, patient states generally headache gets better with Tylenol Benadryl. Patient is currently at 35 weeks and 5 days EGA. History of gestational diabetes also history of preeclampsia. . 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 - Infectious Disease History:: Denies. - Social history:: Smoking status: Patient denies any tobacco usage or history of. - Family history:: not pertinent. ROS: 21:51 Constitutional: Negative for fever, chills, and weight loss, positive left-sided sp4 headache. 21:51 All other systems are negative, Exam: 21:51 Constitutional: This is a well developed, well nourished patient who is awake, alert, sp4 and in no acute distress. Head/Face: Normocephalic, atraumatic. Eyes: Pupils equal round and reactive to light, extra-ocular motions intact. Lids and lashes normal. Conjunctiva and sclera are not injected. Cornea within normal limits. Periorbital areas with no swelling, redness, or edema. ENT: Nares patent. No nasal discharge, no septal abnormalities noted. Tympanic membranes are normal and external auditory canals are clear. Oropharynx with no redness, swelling, or masses, exudates, or evidence of obstruction, uvula midline. Mucous membranes moist. Neck: Trachea midline, no thyromegaly or masses palpated, and no cervical lymphadenopathy. Supple, full range of motion without nuchal rigidity, or vertebral point tenderness. Chest/axilla: Normal chest wall appearance and motion. Nontender with no deformity. No lesions are appreciated. Cardiovascular: Regular rate and rhythm with a normal S1 and S2. No gallops, murmurs, or rubs. Normal PMI, no JVD. No pulse deficits. Respiratory: Lungs have equal breath sounds bilaterally, clear to auscultation and percussion. No rales, rhonchi or wheezes noted. No increased work of breathing, no retractions or nasal flaring. Abdomen/GI: Soft, with normal bowel sounds. No distension or tympany. No guarding or rebound. No evidence of tenderness throughout. Patient has gravid uterus Back: No spinal tenderness. No costovertebral tenderness. Skin: Warm, dry with normal turgor. Normal color with no rashes, no lesions, and no evidence of cellulitis. MS/ Extremity: Pulses equal, no cyanosis. Neurovascular intact. Full, normal range of motion. Neuro: Awake and alert, GCS 15, oriented to person, place, time, and situation. Cranial nerves II-XII grossly intact. Motor strength 5/5 in all extremities. Sensory grossly intact. Psych: Awake, alert, with orientation to person, place and time. Behavior, mood, and affect are within normal limits Vital Signs: 21:25 BP 127 / 93; Pulse 80; Resp 18; Temp 98.6(O); Pulse Ox 100% on R/A; Weight 92.08 kg; tm6 Height 5 ft. 3 in. ; Pain 9/10; 22:13 BP 131 / 92; Pulse 85; Resp 16; Pulse Ox 98% ; Pain 6/10; dd2 23:16 BP 120 / 82; Pulse 80; Resp 15; Pulse Ox 99% ; Pain 0/10; dd2 23:53 BP 120 / 82; Pulse 83; Resp 16; Pulse Ox 98% ; Pain 0/10; dd2 21:25 Body Mass Index 35.96 (92.08 kg, 160.02 cm) tm6 21:25 Pain Scale: Adult tm6 22:13 Pain Scale: Adult dd2 23:16 Pain Scale: Adult dd2 23:53 Pain Scale: Adult dd2 Leonidas Coma Score: 21:51 Eye Response: spontaneous(4). Motor Response: obeys commands(6). Verbal Response: sp4 oriented(5). Total: 15. 23:41 Eye Response: spontaneous(4). Motor Response: obeys commands(6). Verbal Response: sp4 oriented(5). Total: 15. MDM: 21:38 Patient medically screened. sp4 23:41 Differential diagnosis: cluster headache, hypertensive headache, hypoglycemia, sp4 migraine, vasomotor headache. Data reviewed: vital signs, nurses notes, old medical records, lab test result(s). ED course: Headache improved after medications. Patient stable for discharge home. Patient will be prescribed Reglan as needed. 12/23 21:48 Order name: CMP; Complete Time: 23:36 sp4 12/23 21:48 Order name: CBC with Diff; Complete Time: 23:36 sp4 12/23 21:48 Order name: Saline Lock; Complete Time: 21:58 sp4 Administered Medications: 22:13 Drug: metoCLOPramide IVP 10 mg IVP once; over 1 to 2 minutes Route: IVP; Site: right dd2 antecubital; 22:28 Follow up: Response: No adverse reaction dd2 22:13 Drug: NS 0.9% IV 1000 ml IV at 1 bolus Per protocol; 1000 mL bolus Route: IV; Rate: 1 dd2 bolus; Site: right antecubital; 22:28 Follow up: Response: No adverse reaction dd2 23:13 Follow up: Response: No adverse reaction; IV Status: Completed infusion; IV Intake: dd2 1000ml 22:13 Drug: diphenhydrAMINE IVP 50 mg IVP once Route: IVP; Site: right antecubital; dd2 22:28 Follow up: Response: No adverse reaction dd2 22:13 Drug: Acetaminophen PO 1000 mg PO once Route: PO; dd2 22:43 Follow up: Response: No adverse reaction dd2 Disposition Summary: 12/24/23 23:40 Discharge Ordered Notes: Location: Home sp4 Problem: new sp4 Symptoms: have improved sp4 Condition: Stable sp4 Diagnosis - Migraine without aura, not intractable sp4 - third trimester, history of migraine headaches sp4 Followup: sp4 - With: Private Physician - When: 7 - 10 days - Reason: Recheck today's complaints Discharge Instructions: - Discharge Summary Sheet sp4 - Migraine Headache, [id number] sp4 Forms: - Patient Portal Instructions sp4 Prescriptions: - Reglan 10 mg Oral tablet - take 1 tablet ORAL route every 8 hours PRN headache or nausea; 30 tablet; sp4 Refills: 0, Product Selection Permitted Signatures: Dispatcher [employer] EDMS Elías Sarkar MD MD sp4 Giselle Eduardo RN RN tm6 STEPHON FLOWERS RN RN dd2 Corrections: (The following items were deleted from the chart) 22:03 22:03 COMPREHENSIVE METABOLIC PANEL+C.LAB.BRZ ordered. EDMS EDMS 22:03 22:03 CBC+H.LAB.BRZ ordered. EDMS EDMS
[2023-12-25 00:32] VITALS: TEMP 98.6
[2023-12-25 00:39] VITALS: BP 120/82
[2023-12-25 00:40] VITALS: O2SAT 98
== END 2023-12-24 23:55 | disposition home or self-care (01) ==
LOC: ER 21:12
DX: O26.893 Other specified pregnancy related conditions, third trimester (principal); G43.009 Migraine without aura, not intractable, without status migrainosus; Z3A.35 35 weeks gestation of pregnancy
CPT/HCPCS: 85025; 36415; 80053; J2765; J1200; J7030

== ENCOUNTER 2024-05-05 21:47 | Emergency (ER) | payer OTHER ==
--- OUTSIDE RECORDS SUMMARY | 2024-05-05 21:54 | XMS REPORT | Continuity of Care Document ---
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 Name Role Phone Pcp, Patient Does Not Have A Primary Care Physic mary TASHA MARROQUIN Attending Clinician Unavail able Shira Olson Attending Clinician [phone] Tasha Hodgson Attending Clinician + FRAN BENSON Attending Clinician Unavailable THERESE CRAWLEY Attending Clinician Unavailable THERESE CRAWLEY Attending Clinician Unavailable THERESE CRAWLEY Attending Clinician Unavailable MANJIT HOUSTON Attending Clinician UnavailManjit Argueta MD Attending Clinician Tru Shearer DO Attending Clinician [phone] BONITA SANTOYO Attending Clinician UnavailBonita Joaquin CNM Attending Clinician Risk, Vmq-Gbpgo-Ru/High Attending Clinician Unav JOSELIN Maciel Attending Clinician Unavailable Soheila WHCNP, Joselin Ingram Attending Clinician [phone] Nestor Naqvi NP Attending Clinician [phone] NAVNEET KHAN Attending Clinician Unav ailable OMERE, NAVNEET ELDRIDGE Attending Clinician Unav ailable Ultrasound, [facility] Attending Clinician Unavailspencer Khan MD, Navneet Eldridge Attending Clinician + NESTOR NAQVI Attending Clinician Unavail able NESTOR NAQVI Attending Clinician Unavail able Therese Crawley MD Attending Clinician [phone] Risk, Ioq-Tdhxr-Uv/High Attending Clinician Unav ailable Soheila ISAP, Joselin Nataly Attending Clinician [phone] Yarelis MOSSM, Bonita A Attending Clinician [phone] TESFAYE PALMER Attending Clinician Unavailable TESFAYE PALMER Attending Clinician Unavailable 1, [facility] Attending Clinician UnavailTesfaye Foster MD Attending Clinician [phone] Akinsipe CNP, Tasha C Attending Clinician + [facility]ending [facility] Unavailable HELADIO RESENDEZ Attending Clinician Unavailable [facility]ending [facility]ician Unava ilable Doctor Unassigned, Hauser Attending Clinician U navailable Za Carson Attending Clinician [phone] ZA JIANG Attending Clinician UnavailBRANDY Manzano Attending Clinician Unav ailable Francisco Javier Bazan MD, Brandy Attending Clinician + MARIA DOLORES MIRANDA Attending Clinician Unavail able EULA ROSE Attending Clinician Unavailable Eula Rose MD Attending Clinician [phone] [facility] Attending Clinician Stephanie Keenan Carbajal MD Attending Clinician [phone] KEENAN LI Attending Clinician Unavailable Hattie Barragan Attending Clinician UnavailHeladio Ashraf MD Attending Clinician [phone] ALBERTO GUPTA Attending Clinician Alberto Ding MD Attending Clinician [phone] 3, [facility] Attending Clinician NAVNEET Bowman Admitting Clinician Unav ailable MANJIT HOUSTON Admitting Clinician Manjit Trevino MD Admitting Clinician [phone] NAVNEET KHAN Admitting Clinician Unav ailable BRANDY MELISSA Admitting Clinician Unav Brandy Owen MD Admitting Clinician + EULA ROSE Admitting Clinician Unavailable Eula Rose MD Admitting Clinician [phone] Payers Payer Name Policy Type Policy Number Effective Date Expirati on Date Source [employer] [facility] [id number] 2023 00:00:00 Problems Condition Name Condition Details Condition Category Status Onset Date Resolution Date Last Treatment Date Treating Clinician Comments Source Chronic hypertensi on affecting Chronic hypertensi on affecting Disease Active 618 00:00: 00 [facility] Pregestati onal diabetes mellitus, 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 Failed 3hr gtt Order echo, q4wk usg starting at 26 weeks when medicaid approved [facility] History of pre-eclamp [place]ber[place] History of pre-eclamp [place] Disease Active 3-22 00:00: 00 [facility] fever fever Disease Active 2020-04 2- 00:00: 00 [facility] Obesity (BMI 30-39.9) Obesity (BMI 30-39.9) Disease Active 2020-04 00:00: 00 [facility] Obesity in Obesity in Disease Active 2020-04 00:00: 00 [facility] GDM (gestation al diabetes mellitus) GDM (gestation al diabetes mellitus) Disease Active 9-20 00:00: 00 [facility] 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 Sister, had genetic counselin g 2020, declines this [facility] Lipoma Lipoma Disease Active 1-15 00:00: 00 [facility] Routine follow-up Routine follow-up Disease Resolve d 2023-04- 00:00: 00 2024-02-18 00:00:00 2024-02-18 08:40:28 [facility] Obesity affecting Obesity affecting Disease Resolve d 2020-04 1-24 00:00: 00 2024-02-18 00:00:00 2024-02-18 08:46:56 [facility] NST (non-stres s test) nonreactiv e NST (non-stres s test) nonreactiv e Disease Resolve d 2023-04 0- 00:00: 00 2024-01-28 00:00:00 2024-01-28 13:55:30 [facility] 37 weeks gestation of 37 weeks gestation of Disease Resolve d 2023-04 0- 00:00: 00 2024-01-28 00:00:00 2024-01-28 13:55:24 [facility] Supervisio n of high-risk Supervisio n of high-risk Disease Resolve d 3-22 00:00: 00 2024-01-28 00:00:00 2024-01-28 13:56:47 [facility] Multiparit y Multiparit y Disease Resolve d 3-22 00:00: 00 2024-01-28 00:00:00 2024-01-28 13:55:29 [facility] Polyhydram nios, antepartum complicati on Polyhydram nios, antepartum complicati on Disease Resolve d 8-13 00:00: 00 2023-11-26 00:00:00 2023-11-26 16:52:22 [facility] Glucose tolerance test abnormal Glucose tolerance test abnormal Disease Resolve d 3-25 00:00: 00 2023-08-08 00:00:00 2023-08-08 10:05:50 Overview: Formattin g of this note might be different from the original. Pending 3hr gtt [facility] History of gestationa l diabetes mellitus (GDM) History of gestationa l diabetes mellitus (GDM) Disease Resolve d 9-20 00:00: 00 2023-08-08 00:00:00 2023-08-08 10:05:52 [facility] Other general counseling and advice for contracept amee management Other general counseling and advice for contracept amee management Disease Resolve d 1-12 00:00: 00 2023-06-27 00:00:00 2023-06-27 10:45:09 [facility] Severe anemia Severe anemia Disease Resolve d 2020-04 2-03 00:00: 00 2023-06-27 00:00:00 2023-06-27 10:45:04 Overview: Formattin g of this note might be different from the original. See note from 03/09/21. Repeat CBC for 0800 to confirm Hgb < 7 so that patient can decide if she desires transfusi on. [facility] Retained placenta or membranes Retained placenta or membranes Disease Resolve d 2020-04 2-02 00:00: 00 2023-06-27 00:00:00 2023-06-27 10:45:07 [facility] fever fever Disease Resolve d 2020-04 2-02 00:00: 00 2023-06-27 00:00:00 2023-06-27 10:45:08 [facility] (spontaneo us vaginal delivery) (spontaneo us vaginal delivery) Disease Resolve d 2020-04 2-02 00:00: 00 2021-03-28 00:00:00 2021-03-28 11:03:13 [facility] Single live Single live Disease Resolve d 2020-04 2-02 00:00: 00 2021-03-28 00:00:00 2021-03-28 11:03:15 [facility] Acute blood loss anemia Acute blood loss anemia Disease Resolve d 2020-04 2-02 00:00: 00 2021-03-28 00:00:00 2021-03-28 11:04:22 [facility] hemorrhage hemorrhage Disease Resolve d 2020-04 2- 00:00: 00 2021-03-28 00:00:00 2021-03-28 11:04:26 [facility] Obstetrica l laceration Obstetrica l laceration Disease Resolve d 2020-04 2- 00:00: 00 2021-03-28 00:00:00 2021-03-28 11:04:24 [facility] Preeclamps ia Preeclamps ia Disease Resolve d 2020-04 1-30 00:00: 00 2021-03-28 00:00:00 2021-03-28 11:33:44 [facility] 37 weeks gestation of 37 weeks gestation of Disease Resolve d 2020-04 1-30 00:00: 00 2021-03-28 00:00:00 2021-03-28 11:02:42 [facility] 36 weeks gestation of 36 weeks gestation of Disease Resolve d 2020-0424 00:00: 00 2021-03-28 00:00:00 2021-03-28 11:02:41 [facility] Insufficie nt care in third trimester Insufficie nt care in third trimester Disease Resolve d 2020-04 1-09 00:00: 00 2021-03-28 00:00:00 2021-03-28 11:04:12 [facility] Elevated blood pressure reading without diagnosis of hypertensi on Elevated blood pressure reading without diagnosis of hypertensi on Disease Resolve d 2020-0 7-05 00:00: 00 2021-03-28 00:00:00 2021-03-28 11:04:18 [facility] Supervisio n of high-risk Supervisio n of high-risk Disease Resolve d 2020-0 5-13 00:00: 00 2021-03-28 00:00:00 2021-03-28 11:03:14 [facility] Obesity in Obesity in Disease Resolve d 5-13 00:00: 00 2021-03-28 00:00:00 2021-03-28 11:04:10 [facility] Abnormal maternal glucose tolerance, antepartum Abnormal maternal glucose tolerance, antepartum Disease Resolve d 5-14 00:00: 00 2021-02-28 00:00:00 2021-02-28 09:28:50 [facility] Allergies, Adverse Reactions, Alerts Allergy Name Allergy Type Status Severity Reaction(s) Onset Date Inactive Date Treating Clinician Comments Source NO KNOWN ALLERGIE S Drug Class Active [facility] Social History Social Habit Start Date Stop Date Quantity Comments Source ASSERTION 2023-05-02 00:00:00 [facility] Exposure to SARS-CoV-2 (event) Not sure [facility] Alcoholic beverage intake 2024-02-18 00:00:00 2024-02-18 00:00:00 Current non-drinker of alcohol (finding) [facility] Alcohol intake 2023-08-08 00:00:00 2023-08-08 00:00:00 Current non-drinker of alcohol (finding) [facility] History of Social function 2023-06-27 00:00:00 2023-06-27 00:00:00 [facility] Tobacco use and exposure 2023-06-27 00:00:00 2023-06-27 00:00:00 Smokeless tobacco non-user [facility] Tobacco Comment 2023-06-27 00:00:00 2023-06-27 00:00:[address] [facility] Sex assigned at 2000 00:00:00 2000 00:00:00 [facility] Smoking Status Start Date Stop Date Source Never smoked tobacco [facility] Medications Ordered Medication Name Filled Medication Name Start Date Stop Date Current Medication? Ordering Clinician Indication Dosage Frequency Signature (SIG) Comments Components Source insulin NPH 100 unit/mL injection 2023-04 00:00: 00 Yes [id number] 16U inject 16 Units under the skin every morning. [facility] insulin regular human 100 unit/mL injection 2023-04 0 00:00: 00 Yes [id number] 6U inject 6 Units under the skin in the morning and 6 Units in the evening. inject with meals. [facility] insulin NPH (HUMULIN N) injection 16 Units 2023-04 0 14:00: 00 Yes 16U 16 Units, Subcutaneo us, QAM, First dose on Fri01/08/24 at 0900, Until Discontinu ed, Routine [facility] ferrous sulfate 325 mg (65 mg iron) tablet 2023-04 00:00: 00 Yes [id number] 325mg Take 1 tablet by mouth in the morning. [facility] docusate 100 mg capsule 2023-04 00:00: 00 02-17 00:00 :00 No [id number] 200mg Take 2 capsules by mouth once daily as needed for Constipati on. [facility] ibuprofen 800 mg tablet 2023-04 00:00: 00 02-17 00:00 :00 No [id number] 800mg Take 1 tablet by mouth every 8 (eight) hours as needed (pain). Take with food or milk. [facility] acetaminoph en 500 mg tablet 2023-04 00:00: 00 02-17 00:00 :00 No [id number] 1000mg Take 2 tablets by mouth every 8 (eight) hours as needed for Pain. [facility] ibuprofen (IBU) tablet 800 mg 2023-04 23:30: 00 Yes 800mg 800 mg, Oral, Q8HA1, First dose on Fri01/07/24 at 1830, Until Discontinu ed, Routine [facility] insulin regular human (HUMULIN R) injection 6 Units 2023-04 0 22:00: 00 Yes 6U 6 Units, Subcutaneo us, BID MEALS, First dose on Fri01/07/24 at 1700, Until Discontinu ed, Routine, Indication for insulin: Hyperglyce rupert [facility] acetaminoph en (TYLENOL) tablet 1,000 mg 2023-04 19:30: 00 Yes 1000mg 1,000 mg, Oral, Q8H, First dose on Fri01/07/24 at 1430, Until Discontinu ed, Routine [facility] sodium citrate-cit misty acid (BICITRA) 500-334 mg/5 mL solution 15 mL 2023-04 18:15: 00 01-06 18:17 :00 No 15mL 15 mL, Oral, ONCE, 1 dose, On Fri01/07/24 at 1315, Routine [facility] rho(D) immune globulin (RHOPHYLAC) injection 300 mcg 2023-04 17:27: 13 Yes 300ug [facility] ibuprofen (IBU) tablet 600 mg 2023-04 17:27: 09 Yes 600mg [facility] ity [facility] acetaminoph en (TYLENOL) tablet 650 mg 2023-04 17:27: 09 Yes 650mg [facility] diphenhydrA MINE (BENADRYL) tablet 25 mg 2023-04 17:27: 09 Yes 25mg [facility] ondansetron (ZOFRAN (PF)) injection 4 mg 2023-04 17:27: 09 Yes 4mg [facility] simethicone (GAS RELIEF (SIMETHICON E)) chewable tablet 160 mg 2023-04 17:27: 09 Yes 160mg [facility] docusate (COLACE) capsule 200 mg 2023-04 0 17:27: 09 Yes 200mg [facility] magnesium hydroxide (MILK OF MAGNESIA) 400 mg/5 mL suspension 30 mL 2023-04 17:27: 09 Yes 30mL [facility] benzocaine- menthol (DERMOPLAST ) 20-0.5 % topical spray 2023-04 0 17:27: 09 Yes [facility] acetaminoph en (TYLENOL) tablet 650 mg 2023-04 13:30: 00 01-06 12:35 :00 No 650mg 650 mg, Oral, ONCE, 1 dose, On Fri01/07/24 at 0830, Routine [facility] D5W-LR IV infusion 1,000 mL 2023-04 0 21:46: 21 01-06 17:27 :11 No 1000mL at 1-125 mL/hr, IV Infusion, TITRATE, Starting on Fri01/06/24 at 1646, Until Fri01/07/24 at 1227, Routine [facility] Iron Fum & P-FA-Vit B & C No.9 (INTEGRA PLUS) 125 mg iron- 1 mg Cap 12-22 00:00: 00 01-07 00:00 :00 No [id number] 1{capsu le} Take 1 capsule by mouth in the morning. [facility] Insulin Syringe-Nee dle U-100 1 mL 31 gauge x 5/16 Syrg 11-12 00:00: 00 Yes [id number] Use as directed [facility] insulin regular human (NOVOLIN R REGULAR U100 INSULIN) 100 unit/mL injection 11-12 00:00: 00 01-07 00:00 :00 No [id number] inject 16 Units under the skin daily with breakfast AND 12 Units with evening meal. [facility] insulin NPH (NOVOLIN N NPH U-100 INSULIN) 100 unit/mL injection 11-12 00:00: 00 01-07 00:00 :00 No [id number] 32U inject 32 Units under the skin daily with breakfast. [facility] aspirin 81 mg EC tablet 10-07 00:00: 00 01-07 00:00 :00 No [id number] 81mg Take 1 tablet by mouth in the morning for 180 days. [facility] diphenhydrA MINE (BENADRYL) tablet 25 mg 09-09 02:01: 00 09-09 02:17 :00 No 25mg 25 mg, Oral, ONCE, 1 dose, On Fri09/09/23 at 2115, Routine [facility] metoclopram godfrey HCl (REGLAN) tablet 10 mg 09-09 02:01: 00 09-09 02:17 :00 No 10mg 10 mg, Oral, ONCE, 1 dose, On Fri09/09/23 at 2115, Routine [facility] acetaminoph en (TYLENOL) tablet 1,000 mg 09-09 01:30: 00 09-09 01:34 :00 No 1000mg 1,000 mg, Oral, ONCE, 1 dose, On Fri09/09/23 at 2030, Routine [facility] metoclopram godfrey HCl 5 mg tablet 09-08 00:00: 00 02-17 00:00 :00 No [id number] 5mg Take 1 tablet by mouth every 6 (six) hours as needed (Headache) . [facility] aspirin 81 mg EC tablet 08-07 00:00: 00 01-07 00:00 :00 No [id number] 9100 81mg Take 1 tablet by mouth in the morning. [facility] Blood-Gluco se Meter (FREESTYLE LITE METER) Kit 07-06 00:00: 00 Yes [id number] Check blood glucose 4x daily [facility] lancets (FREESTYLE LANCETS) 28 gauge Misc 07-06 00:00: 00 Yes [id number] Check glucose 4x daily [facility] blood sugar diagnostic (FREESTYLE LITE STRIPS) strip 07-06 00:00: 00 Yes [id number] Check blood glucose 4x daily [facility] proMETHazin e 25 mg tablet 06-26 00:00: 00 02-17 00:00 :00 No [id number] 25mg Take 1 tablet by mouth every 6 (six) hours as needed for Nausea and Vomiting (N/V). [facility] pdh19-urqu- folic acid 29 mg iron- 1 mg per tablet 06-26 00:00: 00 01-07 00:00 :00 No [id number] 1{tbl} Take 1 tablet by mouth in the morning. [facility] ferrous sulfate 325 mg (65 mg iron) tablet 2020-04 00:00: 00 Yes [id number] 325mg Take 1 tablet by mouth 3 (three) times daily with meals. [facility] Immunizations Ordered Immunization Name Filled Immunization Name Date Status Comments Source Flu Injectable MDCK Pres-Free (FLUCELVAX) 2023-12-23 00:00:[address] [facility] Flu Injectable MDCK Pres-Free (FLUCELVAX) 2023-12-23 00:00:[address] [facility] Flu Injectable MDCK Pres-Free (FLUCELVAX) 2023-12-23 00:00:[address] [facility] Flu Injectable MDCK Pres-Free (FLUCELVAX) 2023-12-23 00:00:[address] [facility] TDAP 2023-11-06 00:00:00 Completed TDAP 2023-11-06 00:00:00 Completed TDAP 2023-11-06 00:00:00 Completed TDAP 2023-11-06 00:00:00 Completed TDAP 2021-01-11 00:00:[address] [facility] TDAP 2021-01-11 00:00:[address] [facility] TDAP 2021-01-11 00:00:[address] [facility] TDAP 2021-01-11 00:00:[address] [facility] TDAP 2021-01-11 00:00:[address] [facility] HPV 2011-09-23 00:00:[address] [facility] Meningococcal Vaccine 2011-09-23 00:00:[address] [facility] TDAP 2011-09-23 00:00:[address] [facility] HPV 2011-09-23 00:00:00 Completed Meningococcal Vaccine 2011-09-23 00:00:00 Completed TDAP 2011-09-23 00:00:00 Completed HPV 2011-05-27 00:00:[address] [facility] Influenza Virus Vaccine 2011-05-27 00:00:[address] [facility] HPV 2011-05-27 00:00:00 Completed Influenza Virus Vaccine 2011-05-27 00:00:00 Completed HPV 2011-05-27 00:00:00 Completed Influenza Virus Vaccine 2011-05-27 00:00:00 Completed HPV 2011-05-27 00:00:00 Completed Influenza Virus Vaccine 2011-05-27 00:00:00 Completed HPV 2011-05-27 00:00:00 Completed Influenza Virus Vaccine 2011-05-27 00:00:00 Completed HPV 2010-03-14 00:00:[address] [facility] Influenza Virus Vaccine 2010-03-14 00:00:[address] [facility] HPV 2010-03-14 00:00:00 Completed Influenza Virus Vaccine 2010-03-14 00:00:00 Completed HPV 2010-03-14 00:00:00 Completed Influenza Virus Vaccine 2010-03-14 00:00:00 Completed HPV 2010-03-14 00:00:00 Completed Influenza Virus Vaccine 2010-03-14 00:00:00 Completed HPV 2010-03-14 00:00:00 Completed Influenza Virus Vaccine 2010-03-14 00:00:00 Completed Varicella (varivax)(chicken pox) 2006-07-07 00:00:[address] [facility] Varicella (varivax)(chicken pox) 2006-07-07 00:00:[address] [facility] HEPATITIS A 2005-11-21 00:00:[address] [facility] HEPATITIS A 2005-11-21 00:00:00 Completed HEPATITIS A 2005-11-21 00:00:00 Completed HEPATITIS A 2005-11-21 00:00:00 Completed HEPATITIS A 2005-11-21 00:00:00 Completed HEPATITIS A 2004-12-25 00:00:[address] [facility] HEPATITIS A 2004-12-25 00:00:00 Completed HEPATITIS A 2004-12-25 00:00:00 Completed HEPATITIS A 2004-12-25 00:00:00 Completed HEPATITIS A 2004-12-25 00:00:00 Completed DTAP 2004-10-09 00:00:[address] [facility] MMR 2004-10-09 00:00:[address] [facility] Polio (IPV/OPV) 2004-10-09 00:00:[address] [facility] DTAP 2004-10-09 00:00:00 Completed MMR 2004-10-09 00:00:00 Completed Polio (IPV/OPV) 2004-10-09 00:00:00 Completed DTAP 2004-10-09 00:00:00 Completed MMR 2004-10-09 00:00:00 Completed Polio (IPV/OPV) 2004-10-09 00:00:00 Completed DTAP 2004-10-09 00:00:00 Completed MMR 2004-10-09 00:00:00 Completed Polio (IPV/OPV) 2004-10-09 00:00:00 Completed DTAP 2004-10-09 00:00:00 Completed MMR 2004-10-09 00:00:00 Completed Polio (IPV/OPV) 2004-10-09 00:00:00 Completed Hep B, Adol or Pedi Dosage 2002-05-28 00:00:[address] [facility] Pneumococcal 7 Conjugate, PCV7 (Prevnar7) 2002-05-28 00:00:[address] [facility] Hep B, Adol or Pedi Dosage 2002-05-28 00:00:00 Completed Pneumococcal 7 Conjugate, PCV7 (Prevnar7) 2002-05-28 00:00:00 Completed Hep B, Adol or Pedi Dosage 2002-05-28 00:00:00 Completed Pneumococcal 7 Conjugate, PCV7 (Prevnar7) 2002-05-28 00:00:00 Completed Hep B, Adol or Pedi Dosage 2002-05-28 00:00:00 Completed Pneumococcal 7 Conjugate, PCV7 (Prevnar7) 2002-05-28 00:00:00 Completed Hep B, Adol or Pedi Dosage 2002-05-28 00:00:00 Completed Pneumococcal 7 Conjugate, PCV7 (Prevnar7) 2002-05-28 00:00:00 Completed DTAP 2001-09-22 00:00:[address] [facility] HIB 4 Dose Schedule 2001-09-22 00:00:[address] [facility] DTAP 2001-09-22 00:00:00 Completed HIB 4 Dose Schedule 2001-09-22 00:00:00 Completed DTAP 2001-09-22 00:00:00 Completed HIB 4 Dose Schedule 2001-09-22 00:00:00 Completed DTAP 2001-09-22 00:00:00 Completed HIB 4 Dose Schedule 2001-09-22 00:00:00 Completed DTAP 2001-09-22 00:00:00 Completed HIB 4 Dose Schedule 2001-09-22 00:00:00 Completed MMR 2001-06-24 00:00:[address] [facility] Polio (IPV/OPV) 2001-06-24 00:00:[address] [facility] Varicella (varivax)(chicken pox) 2001-06-24 00:00:[address] [facility] MMR 2001-06-24 00:00:00 Completed Polio (IPV/OPV) 2001-06-24 00:00:00 Completed Varicella (varivax)(chicken pox) 2001-06-24 00:00:00 Completed MMR 2001-06-24 00:00:00 Completed Polio (IPV/OPV) 2001-06-24 00:00:00 Completed Varicella (varivax)(chicken pox) 2001-06-24 00:00:00 Completed MMR 2001-06-24 00:00:00 Completed Polio (IPV/OPV) 2001-06-24 00:00:00 Completed Varicella (varivax)(chicken pox) 2001-06-24 00:00:00 Completed MMR 2001-06-24 00:00:00 Completed Polio (IPV/OPV) 2001-06-24 00:00:00 Completed Varicella (varivax)(chicken pox) 2001-06-24 00:00:00 Completed DTAP 2000 00:00:[address] [facility] HIB 4 Dose Schedule 2000 00:00:[address] [facility] Hep B, Adol or Pedi Dosage 2000 00:00:[address] [facility] Pneumococcal 7 Conjugate, PCV7 (Prevnar7) 2000 00:00:[address] [facility] DTAP 2000 00:00:00 Completed HIB 4 Dose Schedule 2000 00:00:00 Completed Hep B, Adol or Pedi Dosage 2000 00:00:00 Completed Pneumococcal 7 Conjugate, PCV7 (Prevnar7) 2000 00:00:00 Completed DTAP 2000 00:00:00 Completed HIB 4 Dose Schedule 2000 00:00:00 Completed Hep B, Adol or Pedi Dosage 2000 00:00:00 Completed Pneumococcal 7 Conjugate, PCV7 (Prevnar7) 2000 00:00:00 Completed DTAP 2000 00:00:00 Completed HIB 4 Dose Schedule 2000 00:00:00 Completed Hep B, Adol or Pedi Dosage 2000 00:00:00 Completed Pneumococcal 7 Conjugate, PCV7 (Prevnar7) 2000 00:00:00 Completed DTAP 2000 00:00:00 Completed HIB 4 Dose Schedule 2000 00:00:00 Completed Hep B, Adol or Pedi Dosage 2000 00:00:00 Completed Pneumococcal 7 Conjugate, PCV7 (Prevnar7) 2000 00:00:00 Completed DTAP 2000 00:00:[address] [facility] HIB 4 Dose Schedule 2000 00:00:[address] [facility] Pneumococcal 7 Conjugate, PCV7 (Prevnar7) 2000 00:00:[address] [facility] Polio (IPV/OPV) 2000 00:00:[address] [facility] DTAP 2000 00:00:00 Completed HIB 4 Dose Schedule 2000 00:00:00 Completed Pneumococcal 7 Conjugate, PCV7 (Prevnar7) 2000 00:00:00 Completed Polio (IPV/OPV) 2000 00:00:00 Completed DTAP 2000 00:00:00 Completed HIB 4 Dose Schedule 2000 00:00:00 Completed Pneumococcal 7 Conjugate, PCV7 (Prevnar7) 2000 00:00:00 Completed Polio (IPV/OPV) 2000 00:00:00 Completed DTAP 2000 00:00:00 Completed HIB 4 Dose Schedule 2000 00:00:00 Completed Pneumococcal 7 Conjugate, PCV7 (Prevnar7) 2000 00:00:00 Completed Polio (IPV/OPV) 2000 00:00:00 Completed DTAP 2000 00:00:00 Completed HIB 4 Dose Schedule 2000 00:00:00 Completed Pneumococcal 7 Conjugate, PCV7 (Prevnar7) 2000 00:00:00 Completed Polio (IPV/OPV) 2000 00:00:00 Completed DTAP 2000 00:00:[address] [facility] HIB 4 Dose Schedule 2000 00:00:[address] [facility] Pneumococcal 7 Conjugate, PCV7 (Prevnar7) 2000 00:00:[address] [facility] Polio (IPV/OPV) 2000 00:00:[address] [facility] DTAP 2000 00:00:[address] [facility] HIB 4 Dose Schedule 2000 00:00:00 Completed Pneumococcal 7 Conjugate, PCV7 (Prevnar7) 2000 00:00:00 Completed Polio (IPV/OPV) 2000 00:00:00 Completed DTAP 2000 00:00:[address] [facility] HIB 4 Dose Schedule 2000 00:00:00 Completed Pneumococcal 7 Conjugate, PCV7 (Prevnar7) 2000 00:00:00 Completed Polio (IPV/OPV) 2000 00:00:00 Completed DTAP 2000 00:00:[address] [facility] HIB 4 Dose Schedule 2000 00:00:00 Completed Pneumococcal 7 Conjugate, PCV7 (Prevnar7) 2000 00:00:00 Completed Polio (IPV/OPV) 2000 00:00:00 Completed DTAP 2000 00:00:[address] [facility] HIB 4 Dose Schedule 2000 00:00:00 Completed Pneumococcal 7 Conjugate, PCV7 (Prevnar7) 2000 00:00:00 Completed Polio (IPV/OPV) 2000 00:00:00 Completed Hep B, Adol or Pedi Dosage 2000 00:00:[address] [facility] Hep B, Adol or Pedi Dosage 2000 00:00:00 Completed Hep B, Adol or Pedi Dosage 2000 00:00:00 Completed Hep B, Adol or Pedi Dosage 2000 00:00:00 Completed Hep B, Adol or Pedi Dosage 2000 00:00:00 Completed DTAP Unknown Completed [facility] HIB 4 Dose Schedule Unknown Completed [facility] HEPATITIS A Unknown Completed [facility] Hep B, Adol or Pedi Dosage Unknown Completed [facility] HPV Unknown Completed [facility] Influenza Virus Vaccine Unknown Completed [facility] MMR Unknown Completed [facility] Pneumococcal 7 Conjugate, PCV7 (Prevnar7) Unknown Completed [facility] Polio (IPV/OPV) Unknown Completed [facility] Varicella (varivax)(chicken pox) Unknown Completed [facility] TDAP Unknown Completed [facility] Varicella (varivax)(chicken pox) Unknown Completed [facility] TDAP Unknown Completed [facility] DTAP Unknown Completed [facility] HIB 4 Dose Schedule Unknown Completed [facility] HEPATITIS A Unknown Completed [facility] Hep B, Adol or Pedi Dosage Unknown Completed [facility] HPV Unknown Completed [facility] Influenza Virus Vaccine Unknown Completed [facility] MMR Unknown Completed [facility] Pneumococcal 7 Conjugate, PCV7 (Prevnar7) Unknown Completed [facility] Polio (IPV/OPV) Unknown Completed [facility] HPV Unknown Completed [facility] Meningococcal Vaccine Unknown Completed [facility] DTAP Unknown Completed [facility] HIB 4 Dose Schedule Unknown Completed [facility] HEPATITIS A Unknown Completed [facility] Hep B, Adol or Pedi Dosage Unknown Completed [facility] Influenza Virus Vaccine Unknown Completed [facility] MMR Unknown Completed [facility] Pneumococcal 7 Conjugate, PCV7 (Prevnar7) Unknown Completed [facility] Polio (IPV/OPV) Unknown Completed [facility] Varicella (varivax)(chicken pox) Unknown Completed [facility] TDAP Unknown Completed [facility] DTAP Unknown Completed [facility] HIB 4 Dose Schedule Unknown Completed [facility] HEPATITIS A Unknown Completed [facility] Hep B, Adol or Pedi Dosage Unknown Completed [facility] HPV Unknown Completed [facility] Influenza Virus Vaccine Unknown Completed [facility] MMR Unknown Completed [facility] Pneumococcal 7 Conjugate, PCV7 (Prevnar7) Unknown Completed [facility] Polio (IPV/OPV) [facility]chicken [facility]ox[facility] Unknown Completed [facility] TDAP Unknown Completed [facility] DTAP Unknown Completed [facility] HIB 4 Dose Schedule Unknown Completed [facility] HEPATITIS A Unknown Completed [facility] Hep B, Adol or Pedi Dosage Unknown Completed [facility] HPV Unknown Completed [facility] Influenza Virus Vaccine Unknown Completed [facility] MMR Unknown Completed [facility] Pneumococcal 7 Conjugate, PCV7 (Prevnar7) Unknown Completed [facility] Polio (IPV/OPV) Unknown Completed [facility] Varicella (varivax)(chicken pox) Unknown Completed [facility] TDAP Unknown Completed [facility] DTAP Unknown Completed [facility] HIB 4 Dose Schedule Unknown Completed [facility] HEPATITIS A Unknown Completed [facility] Hep B, Adol or Pedi Dosage Unknown Completed [facility] HPV Unknown Completed [facility] Influenza Virus Vaccine Unknown Completed [facility] MMR Unknown Completed [facility] Pneumococcal 7 Conjugate, PCV7 (Prevnar7) Unknown Completed [facility] Polio (IPV/OPV) Unknown Completed [facility] Varicella (varivax)(chicken pox) Unknown Completed [facility] TDAP Unknown Completed [facility] DTAP Unknown Completed [facility] HIB 4 Dose Schedule Unknown Completed [facility] HEPATITIS A Unknown Completed [facility] Hep B, Adol or Pedi Dosage Unknown Completed [facility] HPV Unknown Completed [facility] Influenza Virus Vaccine Unknown Completed [facility] MMR Unknown Completed [facility] Pneumococcal 7 Conjugate, PCV7 (Prevnar7) Unknown Completed [facility] Polio (IPV/OPV) Unknown Completed [facility] Varicella (varivax)(chicken pox) Unknown Completed [facility] TDAP Unknown Completed [facility] HPV Unknown Completed [facility] Meningococcal Vaccine Unknown Completed [facility] DTAP Unknown Completed [facility] HIB 4 Dose Schedule Unknown Completed [facility] HEPATITIS A Unknown Completed [facility] Hep B, Adol or Pedi Dosage Unknown Completed [facility] Influenza Virus Vaccine Unknown Completed [facility] MMR Unknown Completed [facility] Pneumococcal 7 Conjugate, PCV7 (Prevnar7) Unknown Completed [facility] Polio (IPV/OPV) Unknown Completed [facility] Varicella (varivax)(chicken pox) Unknown Completed [facility] TDAP Unknown Completed [facility] DTAP Unknown Completed [facility] HIB 4 Dose Schedule Unknown Completed [facility] HEPATITIS A Unknown Completed [facility] Hep B, Adol or Pedi Dosage Unknown Completed [facility] HPV Unknown Completed [facility] Influenza Virus Vaccine Unknown Completed [facility] MMR Unknown Completed [facility] Pneumococcal 7 Conjugate, PCV7 (Prevnar7) Unknown Completed [facility] Polio (IPV/OPV) Unknown Completed [facility] Varicella (varivax)(chicken pox) Unknown Completed [facility] TDAP Unknown Completed [facility] DTAP Unknown Completed [facility] HIB 4 Dose Schedule Unknown Completed [facility] HEPATITIS A Unknown Completed [facility] Hep B, Adol or Pedi Dosage Unknown Completed [facility] HPV Unknown Completed [facility] Influenza Virus Vaccine Unknown Completed [facility] MMR Unknown Completed [facility] Pneumococcal 7 Conjugate, PCV7 (Prevnar7) Unknown Completed [facility] Polio (IPV/OPV) Unknown Completed [facility] Varicella (varivax)(chicken pox) Unknown Completed [facility] TDAP Unknown Completed [facility] DTAP Unknown Completed [facility] HIB 4 Dose Schedule Unknown Completed [facility] HEPATITIS A Unknown Completed [facility] Hep B, Adol or Pedi Dosage Unknown Completed [facility] HPV Unknown Completed [facility] Influenza Virus Vaccine Unknown Completed [facility] MMR Unknown Completed [facility] Pneumococcal 7 Conjugate, PCV7 (Prevnar7) Unknown Completed [facility] Polio (IPV/OPV) Unknown Completed [facility] Varicella (varivax)(chicken pox) Unknown Completed [facility] TDAP Unknown Completed [facility] Varicella (varivax)(chicken pox) Unknown Completed [facility] TDAP Unknown Completed [facility] DTAP Unknown Completed [facility] HIB 4 Dose Schedule Unknown Completed [facility] HEPATITIS A [facility] Hep B, Adol or Pedi Dosage Unknown Completed [facility] HPV Unknown Completed [facility] Influenza Virus Vaccine Unknown Completed [facility] MMR Unknown Completed [facility] Pneumococcal 7 Conjugate, PCV7 (Prevnar7) Unknown Completed [facility] Polio (IPV/OPV) Unknown Completed [facility] DTAP Unknown Completed [facility] HIB 4 Dose Schedule Unknown Completed [facility] HEPATITIS A Unknown Completed [facility] Hep B, Adol or Pedi Dosage Unknown Completed [facility] HPV Unknown Completed [facility] Influenza Virus Vaccine Unknown Completed [facility] MMR Unknown Completed [facility] Pneumococcal 7 Conjugate, PCV7 (Prevnar7) Unknown Completed [facility] Polio (IPV/OPV) Unknown Completed [facility] Varicella (varivax)(chicken pox) Unknown Completed [facility] TDAP Unknown Completed [facility] DTAP Unknown Completed [facility] HIB 4 Dose Schedule Unknown Completed [facility] HEPATITIS A Unknown Completed [facility] Hep B, Adol or Pedi Dosage Unknown Completed [facility] HPV Unknown Completed [facility] Influenza Virus Vaccine Unknown Completed [facility] MMR Unknown Completed [facility] Pneumococcal 7 Conjugate, PCV7 (Prevnar7) Unknown Completed [facility] Polio (IPV/OPV) Unknown Completed [facility] Varicella (varivax)(chicken pox) Unknown Completed [facility] TDAP Unknown Completed [facility] DTAP Unknown Completed [facility] HIB 4 Dose Schedule Unknown Completed [facility] HEPATITIS A Unknown Completed [facility] Hep B, Adol or Pedi Dosage Unknown Completed [facility] HPV Unknown Completed [facility] Influenza Virus Vaccine Unknown Completed [facility] MMR Unknown Completed [facility] Pneumococcal 7 Conjugate, PCV7 (Prevnar7) Unknown Completed [facility] Polio (IPV/OPV) Unknown Completed [facility] Varicella (varivax)(chicken pox) Unknown Completed [facility] TDAP Unknown Completed [facility] DTAP Unknown Completed [facility] HIB 4 Dose Schedule Unknown Completed [facility] HEPATITIS A Unknown Completed [facility] Hep B, Adol or Pedi Dosage Unknown Completed [facility] HPV Unknown Completed [facility] Influenza Virus Vaccine Unknown Completed [facility] MMR Unknown Completed [facility] Pneumococcal 7 Conjugate, PCV7 (Prevnar7) Unknown Completed [facility] Polio (IPV/OPV) Unknown Completed [facility] Varicella (varivax)(chicken pox) Unknown Completed [facility] TDAP Unknown Completed [facility] DTAP Unknown Completed [facility] HIB 4 Dose Schedule Unknown Completed [facility] HEPATITIS A Unknown Completed [facility] Hep B, Adol or Pedi Dosage Unknown Completed [facility] HPV Unknown Completed [facility] Influenza Virus Vaccine Unknown Completed [facility] MMR Unknown Completed [facility] Pneumococcal 7 Conjugate, PCV7 (Prevnar7) Unknown Completed [facility] Polio (IPV/OPV) Unknown Completed [facility] Varicella (varivax)(chicken pox) Unknown Completed [facility] TDAP Unknown Completed [facility] DTAP Unknown Completed [facility] HIB 4 Dose Schedule Unknown Completed [facility] HEPATITIS A Unknown Completed [facility] Hep B, Adol or Pedi Dosage Unknown Completed [facility] HPV Unknown Completed [facility] Influenza Virus Vaccine Unknown Completed [facility] MMR Unknown Completed [facility] Pneumococcal 7 Conjugate, PCV7 (Prevnar7) Unknown Completed [facility] Polio (IPV/OPV) Unknown Completed [facility] Varicella (varivax)(chicken pox) Unknown Completed [facility] TDAP Unknown Completed [facility] DTAP Unknown Completed [facility] HIB 4 Dose Schedule Unknown Completed [facility] HEPATITIS A Unknown Completed [facility] Hep B, Adol or Pedi Dosage Unknown Completed [facility] HPV Unknown Completed [facility] Influenza Virus Vaccine Unknown Completed [facility] MMR Unknown Completed [facility] Pneumococcal 7 Conjugate, PCV7 (Prevnar7) Unknown Completed [facility] Polio (IPV/OPV) [facility])(chicken pox) Unknown Completed [facility] TDAP Unknown Completed [facility] DTAP Unknown Completed [facility] HIB 4 Dose Schedule Unknown Completed [facility] HEPATITIS A Unknown Completed [facility] Hep B, Adol or Pedi Dosage Unknown Completed [facility] HPV Unknown Completed [facility] Influenza Virus Vaccine Unknown Completed [facility] MMR Unknown Completed [facility] Pneumococcal 7 Conjugate, PCV7 (Prevnar7) Unknown Completed [facility] Polio (IPV/OPV) Unknown Completed [facility] Varicella (varivax)(chicken pox) Unknown Completed [facility] TDAP Unknown Completed [facility] DTAP Unknown Completed [facility] HIB 4 Dose Schedule Unknown Completed [facility] HEPATITIS A Unknown Completed [facility] Hep B, Adol or Pedi Dosage Unknown Completed [facility] HPV Unknown Completed [facility] Influenza Virus Vaccine Unknown Completed [facility] MMR Unknown Completed [facility] Pneumococcal 7 Conjugate, PCV7 (Prevnar7) Unknown Completed [facility] Polio (IPV/OPV) Unknown Completed [facility] Varicella (varivax)(chicken pox) Unknown Completed [facility] TDAP Unknown Completed [facility] DTAP Unknown Completed [facility] HIB 4 Dose Schedule Unknown Completed [facility] HEPATITIS A Unknown Completed [facility] Hep B, Adol or Pedi Dosage Unknown Completed [facility] HPV Unknown Completed [facility] Influenza Virus Vaccine Unknown Completed [facility] MMR Unknown Completed [facility] Pneumococcal 7 Conjugate, PCV7 (Prevnar7) Unknown Completed [facility] Polio (IPV/OPV) Unknown Completed [facility] Varicella (varivax)(chicken pox) Unknown Completed [facility] TDAP Unknown Completed [facility] DTAP Unknown Completed [facility] HIB 4 Dose Schedule Unknown Completed [facility] HEPATITIS A Unknown Completed [facility] Hep B, Adol or Pedi Dosage Unknown Completed [facility] HPV Unknown Completed [facility] Influenza Virus Vaccine Unknown Completed [facility] MMR Unknown Completed [facility] Pneumococcal 7 Conjugate, PCV7 (Prevnar7) Unknown Completed [facility] Polio (IPV/OPV) Unknown Completed [facility] Varicella (varivax)(chicken pox) Unknown Completed [facility] TDAP Unknown Completed [facility] DTAP Unknown Completed [facility] HIB 4 Dose Schedule Unknown Completed [facility] HEPATITIS A Unknown Completed [facility] Hep B, Adol or Pedi Dosage Unknown Completed [facility] HPV Unknown Completed [facility] Influenza Virus Vaccine Unknown Completed [facility] MMR Unknown Completed [facility] Pneumococcal 7 Conjugate, PCV7 (Prevnar7) Unknown Completed [facility] Polio (IPV/OPV) Unknown Completed [facility] Varicella (varivax)(chicken pox) Unknown Completed [facility] TDAP Unknown Completed [facility] DTAP Unknown Completed [facility] HIB 4 Dose Schedule Unknown Completed [facility] HEPATITIS A Unknown Completed [facility] Hep B, Adol or Pedi Dosage Unknown Completed [facility] HPV Unknown Completed [facility] Influenza Virus Vaccine Unknown Completed [facility] MMR Unknown Completed [facility] Pneumococcal 7 Conjugate, PCV7 (Prevnar7) Unknown Completed [facility] Polio (IPV/OPV) Unknown Completed [facility] Varicella (varivax)(chicken pox) Unknown Completed [facility] TDAP Unknown Completed [facility] DTAP Unknown Completed [facility] HIB 4 Dose Schedule Unknown Completed [facility] HEPATITIS A Unknown [facility] Hep B, Adol or Pedi Dosage Unknown Completed [facility] HPV Unknown Completed [facility] Influenza Virus Vaccine Unknown Completed [facility] MMR Unknown Completed [facility] Pneumococcal 7 Conjugate, PCV7 (Prevnar7) Unknown Completed [facility] Polio (IPV/OPV) Unknown Completed [facility] Varicella (varivax)(chicken pox) Unknown Completed [facility] TDAP Unknown Completed [facility] DTAP Unknown Completed [facility] HIB 4 Dose Schedule Unknown Completed [facility] HEPATITIS A Unknown Completed [facility] Hep B, Adol or Pedi Dosage Unknown Completed [facility] HPV Unknown Completed [facility] Influenza Virus Vaccine Unknown Completed [facility] MMR Unknown Completed [facility] Pneumococcal 7 Conjugate, PCV7 (Prevnar7) Unknown Completed [facility] Polio (IPV/OPV) Unknown [facility] ([facility])(chicken pox) Unknown Completed [facility] TDAP Unknown Completed [facility] DTAP Unknown Completed [facility] HIB 4 Dose Schedule Unknown Completed [facility] HEPATITIS A Unknown Completed [facility] Hep B, Adol or Pedi Dosage Unknown Completed [facility] HPV Unknown Completed [facility] Influenza Virus Vaccine Unknown Completed [facility] MMR Unknown Completed [facility] Pneumococcal 7 Conjugate, PCV7 (Prevnar7) Unknown Completed [facility] Polio (IPV/OPV) Unknown Completed [facility] Varicella (varivax)(chicken pox) Unknown Completed [facility] TDAP Unknown Completed [facility] DTAP Unknown Completed [facility] HIB 4 Dose Schedule Unknown Completed [facility] HEPATITIS A Unknown Completed [facility] Hep B, Adol or Pedi Dosage Unknown Completed [facility] HPV Unknown Completed [facility] Influenza Virus Vaccine Unknown Completed [facility] MMR Unknown Completed [facility] Pneumococcal 7 Conjugate, PCV7 (Prevnar7) Unknown Completed [facility] Polio (IPV/OPV) Unknown Completed [facility] Varicella (varivax)(chicken pox) Unknown Completed [facility] TDAP Unknown Completed [facility] DTAP Unknown Completed [facility] HIB 4 Dose Schedule Unknown Completed [facility] HEPATITIS A Unknown Completed [facility] Hep B, Adol or Pedi Dosage Unknown Completed [facility] HPV Unknown Completed [facility] Influenza Virus Vaccine Unknown Completed [facility] MMR Unknown Completed [facility] Pneumococcal 7 Conjugate, PCV7 (Prevnar7) Unknown Completed [facility] Polio (IPV/OPV) Unknown [facility] Varicella (varivax)(chicken pox) Unknown Completed [facility] TDAP Unknown Completed [facility] DTAP Unknown Completed [facility] HIB 4 Dose Schedule Unknown Completed [facility] HEPATITIS A Unknown Completed [facility] Hep B, Adol or Pedi Dosage Unknown Completed [facility] HPV Unknown Completed [facility] Influenza Virus Vaccine Unknown Completed [facility] MMR Unknown Completed [facility] Pneumococcal 7 Conjugate, PCV7 (Prevnar7) Unknown Completed [facility] Polio (IPV/OPV) Unknown Completed [facility] Varicella (varivax)(chicken pox) Unknown Completed [facility] TDAP Unknown Completed [facility] DTAP Unknown Completed [facility] HIB 4 Dose Schedule Unknown Completed [facility] HEPATITIS A Unknown Completed [facility] Hep B, Adol or Pedi Dosage Unknown Completed [facility] HPV Unknown Completed [facility] Influenza Virus Vaccine Unknown Completed [facility] MMR Unknown Completed [facility] Pneumococcal 7 Conjugate, PCV7 (Prevnar7) Unknown Completed [facility] Polio (IPV/OPV) Unknown Completed [facility] Varicella (varivax)(chicken pox) Unknown Completed [facility] TDAP Unknown Completed [facility] Flu Injectable MDCK Pres-Free (FLUCELVAX) Unknown Completed [facility] DTAP Unknown Completed [facility] HIB 4 Dose Schedule Unknown Completed [facility] HEPATITIS A Unknown Completed [facility] Hep B, Adol or Pedi Dosage Unknown Completed [facility] HPV Unknown Completed [facility] Influenza Virus Vaccine Unknown Completed [facility] MMR Unknown Completed [facility] Pneumococcal 7 Conjugate, PCV7 (Prevnar7) Unknown Completed [facility] Polio (IPV/OPV) Unknown Completed [facility] Varicella (varivax)(chicken pox) Unknown Completed [facility] TDAP Unknown Completed [facility] Flu Injectable MDCK Pres-Free (FLUCELVAX) Unknown Completed [facility] Vital Signs Vital Name Observation Time Observation Value Comments S ource Systolic blood pressure 2024-02-18 14:29:00 133 mm[Hg] [facility] Diastolic blood pressure 2024-02-18 14:29:00 90 mm[Hg] [facility] Heart rate 2024-02-18 14:29:00 65 /min [facility] Body temperature 2024-02-18 14:29:[address] [facility] Respiratory rate 2024-02-18 14:29:00 18 /min [facility] Body height 2024-02-18 14:29:00 157.5 cm [facility] Body weight 2024-02-18 14:29:00 89.086 kg [facility] BMI 2024-02-18 14:29:00 35.92 kg/m2 [facility] Systolic blood pressure 2024-01-28 18:39:00 135 mm[Hg] manual [facility] Diastolic blood pressure 2024-01-28 18:39:00 75 mm[Hg] manual [facility] Heart rate 2024-01-28 18:32:00 83 /min [facility] Body temperature 2024-01-28 18:32:[address] [facility] Respiratory rate 2024-01-28 18:32:00 17 /min [facility] Body height 2024-01-28 18:32:00 157.5 cm [facility] Body weight 2024-01-28 18:32:00 85.276 kg [facility] BMI 2024-01-28 18:32:00 34.39 kg/m2 [facility] Systolic blood pressure 2024-01-09 00:43:00 135 mm[Hg] [facility] Diastolic blood pressure 2024-01-09 00:43:00 88 mm[Hg] [facility] Heart rate 2024-01-09 00:43:00 69 /min [facility] Body temperature 2024-01-09 00:43:[address] [facility] Respiratory rate 2024-01-09 00:43:00 18 /min [facility] Oxygen saturation in Arterial blood by Pulse oximetry 2024-01-09 00:43:00 99 /min [facility] Body height 2024-01-06 20:15:00 157.5 cm [facility] Body weight 2024-01-06 20:15:00 96.662 kg [facility] BMI 2024-01-06 20:15:00 38.98 kg/m2 [facility] Systolic blood pressure 2024-01-07 20:15:00 129 mm[Hg] [facility] Diastolic blood pressure 2024-01-07 20:15:00 85 mm[Hg] [facility] Heart rate 2024-01-07 20:15:00 73 /min [facility] Respiratory rate 2024-01-07 20:15:00 17 /min [facility] Oxygen saturation in Arterial blood by Pulse oximetry 2024-01-07 20:15:00 100 /min [facility] Body temperature 2024-01-07 19:15:[address] [facility] Body height 2024-01-06 20:15:00 157.5 cm [facility] Body weight 2024-01-06 20:15:00 96.662 kg [facility] BMI 2024-01-06 20:15:00 38.98 kg/m2 [facility] Systolic blood pressure 2024-01-06 15:47:00 104 mm[Hg] [facility] Diastolic blood pressure 2024-01-06 15:47:00 82 mm[Hg] [facility] Heart rate 2024-01-06 15:44:00 92 /[facility] 2024-01-06 15:44:[address] [facility] Respiratory rate 2024-01-06 15:44:00 18 /min [facility] Body height 2024-01-06 15:44:00 157.5 cm [facility] Body weight 2024-01-06 15:44:00 95.397 kg [facility] BMI 2024-01-06 15:44:00 38.47 kg/m2 [facility] Systolic blood pressure 2023-12-23 19:45:00 120 mm[Hg] [facility] Diastolic blood pressure 2023-12-23 19:45:00 88 mm[Hg] [facility] Heart rate 2023-12-23 19:39:00 89 /min [facility] Body temperature 2023-12-23 19:39:[address] [facility] Respiratory rate 2023-12-23 19:39:00 18 /min [facility] Body height 2023-12-23 19:39:00 157.5 cm [facility] Body weight 2023-12-23 19:39:00 94.944 kg [facility] BMI 2023-12-23 19:39:00 38.28 kg/m2 [facility] Systolic blood pressure 2023-12-16 19:08:00 122 mm[Hg] [facility] Diastolic blood pressure 2023-12-16 19:08:00 87 mm[Hg] [facility] Heart rate 2023-12-16 19:08:00 101 /min [facility] Body temperature 2023-12-16 19:03:[address] [facility] Respiratory rate 2023-12-16 19:03:00 18 /min [facility] Body height 2023-12-16 19:03:00 157.5 cm [facility] Body weight 2023-12-16 19:03:00 94.121 kg [facility] BMI 2023-12-16 19:03:00 37.95 kg/m2 [facility] Systolic blood pressure 2023-12-04 13:14:00 122 mm[Hg] [facility] Diastolic blood pressure 2023-12-04 13:14:00 82 mm[Hg] [facility] Heart rate 2023-12-04 13:14:00 87 /min [facility] Body temperature 2023-12-04 13:14:[address] [facility] Respiratory rate 2023-12-04 13:14:00 19 /min [facility] Body height 2023-12-04 13:14:00 157.5 cm [facility] Body weight 2023-12-04 13:14:00 93.94 kg [facility] BMI 2023-12-04 13:14:00 37.88 kg/m2 [facility] Systolic blood pressure 2023-11-26 13:35:00 123 mm[Hg] [facility] Diastolic blood pressure 2023-11-26 13:35:00 87 mm[Hg] [facility] Heart rate 2023-11-26 13:35:00 90 /min [facility] Body temperature 2023-11-26 13:35:[address] [facility] Respiratory rate 2023-11-26 13:35:00 18 /min [facility] Body height 2023-11-26 13:35:00 157.5 cm [facility] Body weight 2023-11-26 13:35:00 94.076 kg [facility] BMI 2023-11-26 13:35:00 37.93 kg/m2 [facility] Systolic blood pressure 2023-11-13 15:14:00 137 mm[Hg] [facility] Diastolic blood pressure 2023-11-13 15:14:00 86 mm[Hg] [facility] Heart rate 2023-11-13 15:14:00 90 /min [facility] Body temperature 2023-11-13 15:14:[address] [facility] Respiratory rate 2023-11-13 15:14:00 18 /min [facility] Body height 2023-11-13 15:14:00 157.5 cm [facility] Body weight 2023-11-13 15:14:00 93.441 kg [facility] BMI 2023-11-13 15:14:00 37.68 kg/m2 [facility] Systolic blood pressure 2023-11-06 18:11:00 128 mm[Hg] [facility] Diastolic blood pressure 2023-11-06 18:11:00 86 mm[Hg] [facility] Heart rate 2023-11-06 18:11:00 92 /min [facility] 2023-11-06 18:11:[address] [facility] Respiratory rate 2023-11-06 18:11:00 18 /min [facility] Body height 2023-11-06 18:11:00 157.5 cm [facility] weight 2023-11-06 18:11:00 91.74 kg [facility] BMI 2023-11-06 18:11:00 36.99 kg/m2 [facility] Systolic blood pressure 2023-10-08 13:57:00 131 mm[Hg] [facility] Diastolic blood pressure 2023-10-08 13:57:00 90 mm[Hg] [facility] Heart rate 2023-10-08 13:57:00 95 /min [facility] 2023-10-08 13:57:[address] [facility] Respiratory rate 2023-10-08 13:57:00 18 /min [facility] Body height 2023-10-08 13:57:00 157.5 cm [facility] Body weight 2023-10-08 13:57:00 89.767 kg [facility] BMI 2023-10-08 13:57:00 36.20 kg/m2 [facility] Systolic blood pressure 2023-09-23 14:40:00 133 mm[Hg] [facility] Diastolic blood pressure 2023-09-23 14:40:00 84 mm[Hg] [facility] Heart rate 2023-09-23 14:40:00 98 /min [facility] Body temperature 2023-09-23 14:39:[address] [facility] Respiratory rate 2023-09-23 14:39:00 18 /min [facility] Body height 2023-09-23 14:39:00 157.5 cm [facility] Body weight 2023-09-23 14:39:00 90.833 kg [facility] BMI 2023-09-23 14:39:00 36.63 kg/m2 [facility] Systolic blood pressure 2023-09-10 04:00:00 103 mm[Hg] [facility] Diastolic blood pressure 2023-09-10 04:00:00 63 mm[Hg] [facility] Heart rate 2023-09-10 04:00:00 79 /min [facility] Oxygen saturation in Arterial blood by Pulse oximetry 2023-09-10 04:00:00 98 /min [facility] Body temperature 2023-09-10 00:10:[address] [facility] Respiratory rate 2023-09-10 00:10:00 20 /min [facility] Systolic blood pressure 2023-09-09 20:21:00 130 mm[Hg] [facility] Diastolic blood pressure 2023-09-09 20:21:00 85 mm[Hg] [facility] Heart rate 2023-09-09 20:14:00 100 /min [facility] Body temperature 2023-09-09 20:14:[address] [facility] Respiratory rate 2023-09-09 20:14:00 18 /min [facility] Body height 2023-09-09 20:14:00 157.5 cm [facility] Body weight 2023-09-09 20:14:00 92.262 kg [facility] BMI 2023-09-09 20:14:00 37.20 kg/m2 [facility] Systolic blood pressure 2023-08-22 15:41:00 131 mm[Hg] [facility] Diastolic blood pressure 2023-08-22 15:41:00 90 mm[Hg] [facility] Heart rate 2023-08-22 15:41:00 90 /min [facility] Body temperature 2023-08-22 15:41:[address] [facility] Respiratory rate 2023-08-22 15:41:00 18 /min [facility] Body height 2023-08-22 15:41:00 157.5 cm [facility] Body weight 2023-08-22 15:41:00 90.447 kg [facility] BMI 2023-08-22 15:41:00 36.47 kg/m2 [facility] Systolic blood pressure 2023-08-08 15:04:00 128 mm[Hg] [place] [facility] Diastolic blood pressure 2023-08-08 15:04:00 83 mm[Hg] [facility] Heart rate 2023-08-08 15:04:00 86 /min [facility] Body temperature 2023-08-08 15:03:[address] [facility] Respiratory rate 2023-08-08 15:03:00 18 /min [facility] Body height 2023-08-08 15:03:00 157.5 cm [facility] Body weight 2023-08-08 15:03:00 90.833 kg [facility] BMI 2023-08-08 15:03:00 36.63 kg/m2 [facility] Systolic blood pressure 2023-07-11 15:34:00 144 mm[Hg] [facility] Diastolic blood pressure 2023-07-11 15:34:00 99 mm[Hg] [facility] Heart rate 2023-07-11 15:34:00 98 /min [facility] Body temperature 2023-07-11 15:34:[address] [facility] Respiratory rate 2023-07-11 15:34:00 18 /min [facility] Body height 2023-07-11 15:34:00 157.5 cm [facility] Body weight 2023-07-11 15:34:00 89.631 kg [facility] BMI 2023-07-11 15:34:00 36.14 kg/m2 [facility] Systolic blood pressure 2023-06-27 15:04:00 132 mm[Hg] [facility] Diastolic blood pressure 2023-06-27 15:04:00 89 mm[Hg] [facility] Heart rate 2023-06-27 15:04:00 87 /min [facility] Body temperature 2023-06-27 15:04:[address] [facility] Respiratory rate 2023-06-27 15:04:00 17 /min [facility] Body height 2023-06-27 15:04:00 157.5 cm [facility] Body weight 2023-06-27 15:04:00 92.352 kg [facility] BMI 2023-06-27 15:04:00 37.24 kg/m2 [facility] Procedures Procedure Date / Time Performed Performing Clinician Source POCT GLUCOSE (AUTOMATED) 2024-01-09 00:11:00 Celso [facility] POCT GLUCOSE (AUTOMATED) 2024-01-08 21:25:00 Celso [facility] POCT GLUCOSE (AUTOMATED) 2024-01-08 14:52:00 Celso [facility] POCT GLUCOSE (AUTOMATED) 2024-01-08 14:52:00 Celso [facility] POCT GLUCOSE (AUTOMATED) 2024-01-08 11:43:00 Celso [facility] POCT GLUCOSE (AUTOMATED) 2024-01-08 11:43:00 Celso [facility] CBC WITH DIFF 2024-01-08 10:08:[address] [facility] CBC WITH DIFF 2024-01-08 10:08:[address] [facility] POCT GLUCOSE (AUTOMATED) 2024-01-07 22:50:00 Celso [facility] POCT GLUCOSE (AUTOMATED) 2024-01-07 22:50:[address] [facility] TUBAL LIGATION 2024-01-07 18:06:00 Tru Shearer [facility] TUBAL LIGATION 2024-01-07 18:06:00 Tru Shearer [facility] VENOUS CORD GAS 2024-01-07 15:19:[address] [facility] VENOUS CORD GAS 2024-01-07 15:19:[address] [facility] POCT GLUCOSE (AUTOMATED) 2024-01-07 13:03:00 Celso [facility] POCT GLUCOSE (AUTOMATED) 2024-01-07 13:03:00 Celso [facility] POCT GLUCOSE (AUTOMATED) 2024-01-07 08:56:00 [place], [facility] POCT GLUCOSE (AUTOMATED) 2024-01-07 08:56:00 [place] [facility] POCT GLUCOSE (AUTOMATED) 2024-01-07 04:48:00 [place] [facility] POCT GLUCOSE (AUTOMATED) 2024-01-07 04:48:00 [place] [facility] POCT GLUCOSE (AUTOMATED) 2024-01-07 00:33:00 [place] [facility] POCT GLUCOSE (AUTOMATED) 2024-01-07 00:33:00 [place], [facility] CBC WITH DIFF 2024-01-06 21:53:00 Marisol Mejia [facility] HEPATITIS B SURFACE ANTIGEN 2024-01-06 21:53:[address] [facility] HB ABO GROUPING 2024-01-06 21:53:[address] [facility] RHO (D) IMMUNE GLOBULIN 2024-01-06 21:53:[address] [facility] HIV 1/2 AG-AB WITH REFLEX 2024-01-06 21:53:[address] [facility] SYPHILIS IGG/IGM 2024-01-06 21:53:[address] [facility] CBC WITH DIFF 2024-01-06 21:53:00 Marisol Mejia [facility] HEPATITIS B SURFACE ANTIGEN 2024-01-06 21:53:[address] [facility] HB ABO GROUPING 2024-01-06 21:53:[address] [facility] RHO (D) IMMUNE GLOBULIN 2024-01-06 21:53:[address] [facility] HIV 1/2 AG-AB WITH REFLEX 2024-01-06 21:53:[address] [facility] SYPHILIS IGG/IGM 2024-01-06 21:53:[address] [facility] POCT GLUCOSE (AUTOMATED) 2024-01-06 20:23:[address] [facility] POCT GLUCOSE (AUTOMATED) 2024-01-06 20:23:[address] [facility] NON-STRESS TEST 2024-01-06 16:37:[address] [facility] POCT URINALYSIS 2024-01-06 15:45:[address] [facility] NON-STRESS TEST 2023-12-23 21:10:[address] [facility] FLU VACC ([id number]), 6 MO-64 YRS, .5ML, IM, TIV (FLUCELVAX) 2023-12-23 20:01:[address] [facility] POCT URINALYSIS 2023-12-23 19:40:[address] [facility] NON-STRESS TEST 2023-12-16 20:23:[address] [facility] POCT URINALYSIS 2023-12-16 19:04:[address] [facility] NON-STRESS TEST 2023-12-04 14:19:[address] [facility] POCT URINALYSIS 2023-12-04 13:16:[address] [facility] POCT URINALYSIS 2023-11-26 13:37:[address] [facility] SECOND AND THIRD TRIMESTER ULTRASOUND 2023-11-26 13:25:[address] [facility] SECOND AND THIRD TRIMESTER ULTRASOUND 2023-11-17 15:07:[address] [facility] POCT URINALYSIS 2023-11-13 15:14:[address] [facility] TDAP VACCINE, >11 YRS, IM 2023-11-06 18:47:[address] [facility] POCT URINALYSIS 2023-11-06 18:11:[address] [facility] SECOND AND THIRD TRIMESTER ULTRASOUND 2023-10-20 15:12:[address] [facility] SECOND AND THIRD TRIMESTER ULTRASOUND 2023-10-20 15:04:[address] [facility] POCT URINALYSIS 2023-10-08 14:00:[address] [facility] POCT URINALYSIS 2023-09-23 14:40:[address] [facility] POCT GLUCOSE (AUTOMATED) 2023-09-10 00:29:[address] [facility] SGOT (ASPARTATE AMINO TRANSFER) 2023-09-10 00:26:[address] [facility] CREATININE 2023-09-10 00:26:00 Aldana, Sandy Sanchez [facility] ALANINE AMINO TRANSFERASE(SGPT 2023-09-10 00:26:[address] [facility] LACTATE DEHYDROGENASE 2023-09-10 00:26:00 Aldana Valarie Mai [facility] URIC ACID 2023-09-10 00:26:00 Aldana, Sandy Sanchez [facility] CBC WITH DIFF 2023-09-10 00:26:00 Aldana, Sandy Sanchez [facility] URINALYSIS 2023-09-10 00:26:00 Aldana, Sandy Sanchez [facility] PROTEIN CREAT RATIO URINE RANDOM 2023-09-10 00:26:[address] [facility] POCT URINALYSIS 2023-09-09 20:15:[address] [facility] POCT URINALYSIS 2023-08-22 15:43:[address] [facility] POCT URINALYSIS 2023-08-08 15:03:[address] [facility] 3 HR GLUCOSE TOLERANCE TEST 2023-07-04 15:43:[address] [facility] 2 HR GLUCOSE TOLERANCE TEST 2023-07-04 14:43:[address] [facility] 1 HR GLUCOSE TOLERANCE TEST 2023-07-04 13:43:[address] [facility] GLUCOSE FASTING 2023-07-04 12:40:[address] [facility] 3 HR GLUCOSE TOLERANCE PANEL 2023-07-04 12:40:[address] [facility] POCT URINALYSIS W/O SPECIFIC GRAVITY 2023-06-27 15:04:[address] [facility] POCT TEST 2023-06-27 15:03:[address] [facility] ASSIGNMENT OF BENEFITS 2023-06-27 14:50:19 Docto r Unassigned, Hauser [facility] Encounters Start Date/Time End Date/Time Encounter Type Admission Type Attending [facility] Facility Care Department Encounter ID Source 2023-09-09 23:26:32 Outpatient P [facility] [id number] [facility] 2024-02-18 08:15:00 2024-02-18 11:44:44 Outpatient R TASHA MARROQUIN [facility] [id number] [facility] 2024-02-18 08:15:00 2024-02-18 11:44:44 Office Visit Shira Paredes Damilola C [facility] SURGICAL INSTRUMENT REPAIR SPECIALIST [facility]ER[facility] 1.2.840.114 350.1.13.10 4.2.7.2.686 [id number] 107 [id number] [facility] 2024-01-28 13:30:00 2024-01-28 13:56:56 Outpatient R LOPEZ TASHA [facility] [id number] [facility] 2024-01-28 13:30:00 2024-01-28 13:56:56 Routine Visit Lopez Tasha Mendoza [facility] SURGICAL INSTRUMENT REPAIR SPECIALIST [facility] MATERNAL & CHILD [facility] 1.2.840.114 350.1.13.10 4.2.7.2.686 [id number] [facility] 2024-01-06 15:03:00 2024-01-08 22:30:00 Inpatient P CELSOPRAVEENAIS [facility] [id number] [facility] 2024-01-06 15:03:00 2024-01-08 22:30:00 Hospital Encounter CelsoPraveenais Waqas [facility] ([facility]AN) 1.2.840.114 350.1.13.10 4.2.7.2.686 [id number] [facility] 2024-01-07 15:15:00 2024-01-07 16:38:00 Surgery Tru Shearer [facility] ([facility]) 1.2.840.114 350.1.13.10 4.2.7.2.686 [id number] [facility] 2024-01-06 10:30:00 2024-01-06 11:26:17 Outpatient R BONITA SANTOYO [facility] [id number] [facility] 2024-01-06 10:30:00 2024-01-06 11:26:17 Routine Visit Bonita Santoyo [facility] SURGICAL INSTRUMENT REPAIR SPECIALIST [facility] & CHILD [facility] 1.2.840.114 350.1.13.10 4.2.7.2.686 [id number] 107 [id number] [facility] 2024-01-01 14:30:00 2024-01-01 14:30:00 Outpatient R [facility] [id number] [facility] 2023-12-30 13:15:00 2023-12-30 13:15:00 Outpatient R BONITA SANTOYO [facility] [id number] [facility] 2023-12-26 00:00:00 2023-12-26 10:31:28 Telephone Risk, Ang-Rmchp-N p/High Risk, Ang-Rmchp-N p/High [facility] SURGICAL INSTRUMENT REPAIR SPECIALIST [facility] & CHILD [facility] 1..840.114 350.1.13.10 4.2.7.2.686 [id number] [facility] 2023-12-25 14:30:00 2023-12-25 14:30:00 Outpatient R [facility] [id number] [facility] 2023-12-23 14:45:00 2023-12-23 15:32:01 Outpatient R BONITA SANTOYO [facility] [id number] [facility] 2023-12-23 14:45:00 2023-12-23 15:32:01 Routine Visit Bonita Santoyo [facility] SURGICAL INSTRUMENT REPAIR SPECIALIST [facility] CHILD [facility] 1..840.114 350.1.13.10 4.2.7.2.686 [id number] 107 [id number] [facility] 2023-12-18 14:15:00 2023-12-18 14:15:00 Outpatient R BONITA SANTOYO [facility] [id number] [facility] 2023-12-16 14:45:00 2023-12-16 14:45:00 Routine Visit Bonita Santoyo [facility] SURGICAL INSTRUMENT REPAIR SPECIALIST [facility] CHILD [facility] 1..840.114 350.1.13.10 4.2.7.2.686 [id number] 107 [id number] [facility] 2023-12-16 14:45:00 2023-12-16 14:36:15 Outpatient R BONITA SANTOYO [facility] [id number] [facility] 2023-12-15 09:30:00 2023-12-15 09:30:00 Outpatient P THERESE CRAWLEY, THERESE CARMONA [facility] [id number] [facility] 2023-12-11 14:30:00 2023-12-11 14:30:00 Outpatient R LOPEZ TASHA [facility] [id number] [facility] 2023-12-09 13:15:00 2023-12-09 13:15:00 Outpatient R AKINHUMA TASHA [facility] [id number] [facility] 2023-12-04 08:00:00 2023-12-04 08:59:30 Outpatient R JOSELIN PARNELL [facility] [id number] [facility] 2023-12-04 08:00:00 2023-12-04 08:59:30 Routine Visit Risk, Ang-Rmchp-N p/High Joselin Parnell Risk, Ang-Rmchp-N p/High [facility] SURGICAL INSTRUMENT REPAIR SPECIALIST [facility] MATERNAL & CHILD [facility] .2.840.114 350.1.13.10 4.2.7.2.686 [id number] 107 [id number] [facility] 2023-12-01 07:30:00 2023-12-01 07:30:00 Outpatient R TASHA MARROQUIN [facility] [id number] [facility] 2023-10-28 00:00:00 2023-11-29 18:20:55 Patient Secure Msg Bonita Santoyo [facility] SURGICAL INSTRUMENT REPAIR SPECIALIST [facility] MATERNAL & CHILD [facility] .2.840.114 350.1.13.10 4.2.7.2.686 [id number] 107 [id number] [facility] 2023-11-26 00:00:00 2023-11-26 16:54:55 Case Management Bonita Santoyo [facility] SURGICAL INSTRUMENT REPAIR SPECIALIST [facility] & CHILD [facility] 1.0.114 350.1.13.10 4.2.7.2.686 [id number] 107 [id number] [facility] 2023-11-26 00:00:00 2023-11-26 16:52:51 Case Management Bonita Santoyo [facility] SURGICAL INSTRUMENT REPAIR SPECIALIST [facility] & CHILD [facility] .0.114 350.1.13.10 4.2.7.2.686 [id number] [facility] 2023-11-26 08:30:00 2023-11-26 08:47:34 Routine Visit Risk, Ang-Rmchp-N p/High Nestor Naqvi Risk, Ang-Rmchp-N p/High [facility] .114 350.1.13.10 4.2.7.2.686 [id number] 107 [id number] [facility] 2023-11-26 08:00:00 2023-11-26 08:47:29 Outpatient R NAVNEET KHAN CHASEY [facility] [id number] [facility] 2023-11-26 08:00:00 2023-11-26 08:47:29 Contract Administrative Assistant Visit Ultrasound, Navneet Palomares Ikuvbogie [facility] [employer] CHILD [facility] ..114 350.1.13.10 4.2.7.2.686 [id number] [facility] 2023-11-19 10:45:00 2023-11-19 10:45:00 Outpatient R NESTOR NAQVI KRISTIN [facility] [id number] [facility] 2023-11-18 00:00:00 2023-11-18 06:55:24 Case Management Bonita Santoyo [facility] SURGICAL INSTRUMENT REPAIR SPECIALIST [facility] & CHILD [facility] ..114 350.1.13.10 4.2.7.2.686 [id number] 107 [id number] [facility] 2023-11-17 09:30:00 2023-11-17 12:27:02 Outpatient R THERESE CRAWLEY SANGEETA JAIN, [facility] [id number] [facility] 2023-11-17 09:30:00 2023-11-17 12:27:02 Contract Administrative Assistant [facility]PA[facility] SPECIALIST [facility] & CHILD [facility] 1..840.114 350.1.13.10 4.2.7.2.686 [id number] [facility] 2023-11-13 09:30:00 2023-11-13 10:33:53 Outpatient NESTOR VANCE KRISTIN [facility] [id number] [facility] 2023-11-13 09:30:00 2023-11-13 10:33:53 Routine Visit Risk, Ang-Rmchp-N p/High Nestor Naqvi Risk, Ang-Rmchp-N p/High [facility] 1..840.114 350.1.13.10 4.2.7.2.686 [id number] 107 [id number] [facility] 2023-11-06 13:30:00 2023-11-06 13:59:26 Outpatient JOSELIN EMMANUEL [facility] [id number] [facility] 2023-11-06 13:30:00 2023-11-06 13:59:26 Routine Visit Risk, Ang-Rmchp-N p/High Joselin Parnell [facility] SURGICAL INSTRUMENT REPAIR SPECIALIST [facility] & CHILD [facility] 1..840.114 350.1.13.10 4.2.7.2.686 [id number] 107 [id number] [facility] 2023-11-05 15:45:00 2023-11-05 15:45:00 Outpatient R [facility] [id number] [facility] 2023-09-29 00:00:00 2023-11-01 18:23:14 Patient Secure Msg RosiejessiBonita [facility] SURGICAL INSTRUMENT REPAIR SPECIALIST [facility] & CHILD [facility] 1.2.840.114 350.1.13.10 4.2.7.2.686 [id number] 107 [id number] [facility] 2023-10-29 13:15:00 2023-10-29 13:15:00 Outpatient JOSELIN EMMANUEL [facility] [id number] [facility] 2023-10-22 13:30:00 2023-10-22 13:30:00 Outpatient NESTOR VANCE KRISTIN [facility] [id number] [facility] 2023-10-21 00:00:00 2023-10-21 11:57:17 Case Management Bonita Santoyo [facility] SURGICAL INSTRUMENT REPAIR SPECIALIST [facility] & CHILD [facility] 1.2.840.114 350.1.13.10 4.2.7.2.686 [id number] 107 [id number] [facility] 2023-10-20 09:15:00 2023-10-20 10:23:52 Outpatient TESFAYE VARGAS SHANNON [facility] [id number] [facility] 2023-10-20 09:15:00 2023-10-20 10:23:52 Contract Administrative Assistant Visit 1, [facility] Room Tesfaye Palmer [facility] 1.2.840.114 350.1.13.10 4.2.7.2.686 [id number] [facility] 2023-10-15 15:00:00 2023-10-15 15:00:00 Outpatient NESTOR VANCE [facility] [id number] [facility] 2023-10-08 08:45:00 2023-10-08 09:29:23 Outpatient NESTOR VANCE [facility] [id number] [facility] 2023-10-08 08:45:00 2023-10-08 09:29:23 Office Visit Risk, Ang-Rmchp-N p/High Nestor Naqvi [facility] SURGICAL INSTRUMENT REPAIR SPECIALIST [facility] & CHILD [facility] 1.2.840.114 350.1.13.10 4.2.7.2.686 [id number] 107 [id number] [facility] 2023-09-30 00:00:00 2023-09-30 12:01:57 Case Management Bonita Santoyo [facility] SURGICAL INSTRUMENT REPAIR SPECIALIST [facility] CHILD [facility] 1.2.840.114 350.1.13.10 4.2.7.2.686 [id number] 107 [id number] [facility] 2023-09-23 09:30:00 2023-09-23 09:57:41 Outpatient R BONITA SANTOYO [facility] [id number] [facility] 2023-09-23 09:30:00 2023-09-23 09:57:41 Routine Visit Bonita Santoyo [facility] SURGICAL INSTRUMENT REPAIR SPECIALIST [facility] CHILD [facility] 1.2.840.114 350.1.13.10 4.2.7.2.686 [id number] 107 [id number] [facility] 2023-08-11 00:00:00 2023-09-13 18:26:31 Patient Secure Msg Bonita Santoyo [facility] SURGICAL INSTRUMENT REPAIR SPECIALIST [facility] CHILD [facility] 1.2.840.114 350.1.13.10 4.2.7.2.686 [id number] [facility] 2023-09-09 18:55:00 2023-09-09 23:25:00 Outpatient P NAVNEET KHAN CHASEY [facility] [id number] [facility] 2023-09-09 18:55:00 2023-09-09 23:25:00 Hospital Encounter Navneet Khan [facility] 1..840.114 350.1.13.10 4.2.7.2.686 [id number] [facility] 2023-09-09 15:15:00 2023-09-09 15:55:55 Routine Visit Tasha Marroquin [facility] SURGICAL INSTRUMENT REPAIR SPECIALIST [facility] & CHILD [facility] 1.2.840.114 350.1.13.10 4.2.7.2.686 [id number] 107 [id number] [facility] 2023-09-09 13:00:00 2023-09-09 13:00:00 Outpatient P TASHA MARROQUIN [facility] [id number] [facility] 2023-08-04 00:00:00 2023-09-06 18:07:55 Patient Secure Msg Tasha Marroquin [facility] SURGICAL INSTRUMENT REPAIR SPECIALIST [facility] & CHILD [facility] 1..840.114 350.1.13.10 4.2.7.2.686 [id number] 107 [id number] [facility] 2023-09-05 09:30:00 2023-09-05 09:30:00 Outpatient BONITA BOND [facility] [id number] [facility] 2023-08-22 10:30:00 2023-08-22 11:01:14 Outpatient BONITA BOND [facility] [id number] [facility] 2023-08-22 10:30:00 2023-08-22 11:01:14 Routine Visit Bonita Santoyo [facility] SURGICAL INSTRUMENT REPAIR SPECIALIST [facility] CHILD [facility] 1..840.114 350.1.13.10 4.2.7.2.686 [id number] 107 [id number] [facility] 2023-08-12 08:15:00 2023-08-12 08:19:17 Outpatient BONITA BOND [facility] [id number] [facility] 2023-08-12 08:15:00 2023-08-12 08:19:17 Contract Administrative Assistant Visit Lab, Bonita Dorman [facility] SURGICAL INSTRUMENT REPAIR SPECIALIST [facility] & CHILD [facility] 1.2.840.114 350.1.13.10 4.2.7.2.686 [id number] 107 [id number] [facility] 2023-08-08 10:00:00 2023-08-08 10:42:10 Outpatient R BONITA SANTOYO [facility] [id number] [facility] 2023-08-08 10:00:00 2023-08-08 10:42:10 Routine Visit Bonita Santoyo [facility] SURGICAL INSTRUMENT REPAIR SPECIALIST [facility] MATERNAL & CHILD [facility] 1.2.840.114 350.1.13.10 4.2.7.2.686 [id number] 107 [id number] [facility] 2023-08-04 00:00:00 2023-08-04 00:00:00 Telephone Tasha Marroquin [facility] SURGICAL INSTRUMENT REPAIR SPECIALIST [facility] & CHILD [facility] 1.2.840.114 350.1.13.10 4.2.7.2.686 [id number] 107 [id number] [facility] 2023-07-25 09:45:00 2023-07-25 09:45:00 Outpatient R TASHA MARROQUIN [facility] [id number] [facility] 2023-07-18 10:30:00 2023-07-18 10:30:00 Outpatient R HELADIO RESENDEZ [facility] [id number] [facility] 2023-07-11 10:30:00 2023-07-11 10:49:42 Outpatient TASHA CHISHOLM [facility] [id number] [facility] 2023-07-11 10:30:00 2023-07-11 10:49:42 Nurse Visit Visit, Ameliap Nurse Tasha Marrouqin [facility] SURGICAL INSTRUMENT REPAIR SPECIALIST [facility] & CHILD [facility] 1.840.114 350.1.13.10 4.2.7.2.686 [id number] 107 [id number] [facility] 2023-07-09 00:00:00 2023-07-09 00:00:00 Telephone Tasha Marroquin [facility] SURGICAL INSTRUMENT REPAIR SPECIALIST [facility] CHILD [facility] 1.840.114 350.1.13.10 4.2.7.2.686 [id number] 107 [id number] [facility] 2023-07-07 00:00:00 2023-07-07 00:00:00 Telephone Tasha Marroquin [facility] SURGICAL INSTRUMENT REPAIR SPECIALIST [facility] .0.114 350.1.13.10 4.2.7.2.686 [id number] 107 [id number] [facility] 2023-07-04 07:45:00 2023-07-04 10:43:06 Outpatient R TASHA MARROQUIN [facility] [id number] [facility] 2023-07-04 07:45:00 2023-07-04 10:43:06 Contract Administrative Assistant Visit Lab, Ang-Rmchp Tasha Marroquin [facility] SURGICAL INSTRUMENT REPAIR SPECIALIST [facility] CHILD [facility] .840.114 350.1.13.10 4.2.7.2.686 [id number] 107 [id number] [facility] 2023-06-27 10:00:00 2023-06-27 11:29:14 Outpatient R TASHA MARROQUIN [facility] [id number] [facility] 2023-06-27 10:00:00 2023-06-27 11:29:14 Initial Visit Tasha Marroquin [facility] SURGICAL INSTRUMENT REPAIR SPECIALIST [facility] & CHILD [facility] 1.840.114 350.1.13.10 4.2.7.2.686 [id number] 107 [id number] [facility] 2023-06-27 00:00:00 2023-06-27 00:00:00 Orders Only Doctor Unassigned, Hauser [facility] 1.114 350.1.13.10 4.2.7.2.686 [id number] [facility] 2023-06-20 08:15:00 2023-06-20 08:15:00 Outpatient R BONITA SANTOYO [facility] [id number] [facility] 2022-10-01 13:11:29 2022-10-01 13:11:29 Outpatient SFA [facility] [id number] Hernán Olea 2021-04-19 00:00:00 2021-04-19 00:00:00 Telephone Tasha Marroquin [facility] SURGICAL INSTRUMENT REPAIR SPECIALIST [facility] & CHILD [facility] .840.114 350.1.13.10 4.2.7.2.686 [id number] 107 [id number] [facility] 2021-04-18 08:15:00 2021-04-18 08:56:46 Outpatient R TAHSA MARROQUIN [facility] [id number] [facility] 2021-04-18 08:15:00 2021-04-18 08:56:46 Office Visit Tasha Marroquin [facility] SURGICAL INSTRUMENT REPAIR SPECIALIST [facility] & CHILD [facility] .840.114 350.1.13.10 4.2.7.2.686 [id number] 107 [id number] [facility] 2021-04-18 08:15:00 2021-04-18 08:15:00 Outpatient R TASHA MARROQUIN [facility] [id number] [facility] 2021-03-29 00:00:00 2021-03-29 00:00:00 Telephone Tasha Marroquin [facility] SURGICAL INSTRUMENT REPAIR SPECIALIST [facility] & CHILD [facility] .840.114 350.1.13.10 4.2.7.2.686 [id number] 107 [id number] [facility] 2021-03-28 11:00:00 2021-03-28 11:41:46 Outpatient R TASHA MARROQUIN [facility] [id number] [facility] 2021-03-28 11:00:00 2021-03-28 11:41:46 Routine Visit Tasha Marroquin [facility] SURGICAL INSTRUMENT REPAIR SPECIALIST [facility] & CHILD [facility] 1..840.114 350.1.13.10 4.2.7.2.686 [id number] [facility] 2021-03-14 10:06:36 2021-03-14 10:26:24 Nurse Visit Visit, [facility] [place] Za Jiang [facility] SURGICAL INSTRUMENT REPAIR SPECIALIST [facility] & CHILD [facility] 1..840.114 350.1.13.10 4.2.7.2.686 [id number] [facility] 2021-03-14 10:00:00 2021-03-14 10:00:00 Outpatient R ZA JIANG [facility] [id number] [facility] 2021-03-06 07:07:00 2021-03-09 16:02:00 Inpatient P BRANDY HERRON [facility] EMIGDIO [id number] [facility] 2021-03-06 07:07:00 2021-03-09 16:02:00 Hospital Encounter Brandy Herron [facility] 1..840.114 350.1.13.10 4.2.7.2.686 [id number] [facility] 2021-03-07 09:45:00 2021-03-07 09:45:00 Outpatient R MARIA DOLORES MIRANDA [facility] [id number] [facility] 2021-02-28 13:36:00 2021-03-01 16:30:00 Outpatient P EULA ROSE [facility]IGDIO [id number] [facility] 2021-02-28 13:36:00 2021-03-01 16:30:00 Hospital Encounter Therese Crawley Megan [facility] 1..840.114 350.1.13.10 4.2.7.2.686 [id number] [facility] 2021-02-28 09:16:09 2021-02-28 09:51:32 Routine Visit Provider, Bonita Diaz [facility] SURGICAL INSTRUMENT REPAIR SPECIALIST [facility] & CHILD [facility] 1..840.114 350.1.13.10 4.2.7.2.686 [id number] [facility] 2021-02-28 09:15:00 2021-02-28 09:51:32 Outpatient BONITA BOND [facility] [id number] [facility] 2021-02-28 09:15:00 2021-02-28 09:15:00 Outpatient R [facility] [id number] [facility] 2021-02-13 14:45:06 2021-02-13 15:46:31 Routine Visit Provider, Bonita Diaz [facility] SURGICAL INSTRUMENT REPAIR SPECIALIST [facility] & CHILD [facility] 1..840.114 350.1.13.10 4.2.7.2.686 [id number] 107 [id number] [facility] 2021-02-13 14:45:00 2021-02-13 15:46:31 Outpatient BONITA BOND [facility] [id number] [facility] 2021-02-13 14:45:00 2021-02-13 15:46:31 Outpatient BONITA BOND [facility] [id number] [facility] 2021-02-13 00:00:00 2021-02-13 00:00:00 Orders Only Doctor Unassigned, Hauser [facility] 1.2840.114 350.1.13.10 4.2.7.2.686 [id number] [facility] 2021-01-25 15:30:00 2021-01-25 15:30:00 Outpatient R ZA JIANG [facility] [id number] [facility] 2021-01-25 15:30:00 2021-01-25 15:30:00 Outpatient R ZA JIANG [facility] [id number] [facility] 2021-01-11 08:01:45 2021-01-11 08:59:30 Routine Visit Tasha Marroquin [facility] SURGICAL INSTRUMENT REPAIR SPECIALIST [facility] MATERNAL & CHILD [facility] ..840.114 350.1.13.10 4.2.7.2.686 [id number] [facility] 2021-01-11 08:00:00 2021-01-11 08:59:30 Outpatient R TASHA MARROQUIN [facility] [id number] [facility] 2021-01-11 08:00:00 2021-01-11 08:00:00 Outpatient R TASHA MARROQUIN [facility] [id number] [facility] 2021-01-05 09:00:00 2021-01-05 09:00:00 Outpatient TASHA CHISHOLM [facility] [id number] [facility] 2020-12-28 15:38:43 2020-12-28 16:19:56 Nurse Visit Visit, Malcolm-Rmchp Nurse Tasha Marroquin [facility] ..840.114 350.1.13.10 4.2.7.2.686 [id number] [facility] 2020-12-28 15:30:00 2020-12-28 16:19:56 Outpatient R TASHA MARROQUIN [facility] [id number] [facility] 2020-12-28 15:30:00 2020-12-28 15:30:00 Outpatient R TASHA MARROQUIN [facility] [id number] [facility] 2020-12-28 10:00:00 2020-12-28 10:00:00 Outpatient R TASHA MARROQUIN [facility] [id number] [facility] 2020-12-28 00:00:00 2020-12-28 00:00:00 Telephone Tasha Marroquin [facility]CSW[facility] SURGICAL INSTRUMENT REPAIR SPECIALIST [facility] MATERNAL & CHILD [facility] 1.2.840.114 350.1.13.10 4.2.7.2.686 [id number] 107 [id number] [facility] 2020-12-25 00:00:00 2020-12-25 00:00:00 Telephone Tasha Marroquin [facility] SURGICAL INSTRUMENT REPAIR SPECIALIST [facility] & CHILD [facility] 1.2.840.114 350.1.13.10 4.2.7.2.686 [id number] [facility] 2020-12-22 08:09:23 2020-12-22 08:39:24 Routine Visit Tasha Marroquin [facility]CSWATI SURGICAL INSTRUMENT REPAIR SPECIALIST [facility] & CHILD [facility] 1.2.840.114 350.1.13.10 4.2.7.2.686 [id number] [facility] 2020-12-22 08:09:23 2020-12-22 08:39:24 Routine Visit Tasha Marroquin SCSWATI SURGICAL INSTRUMENT REPAIR SPECIALIST [facility] & CHILD [facility] 1.2.840.114 350.1.13.10 4.2.7.2.686 [id number] [facility] 2020-12-22 08:00:00 2020-12-22 08:39:24 Outpatient R TASHA MARROQUIN [facility] [id number] [facility] 2020-12-22 08:00:00 2020-12-22 08:00:00 Outpatient R TASHA MARROQUIN [facility] [id number] [facility] 2020-12-19 08:00:00 2020-12-19 08:00:00 Outpatient R TASHA MARROQUIN [facility] [id number] [facility] 2020-12-15 00:00:00 2020-12-15 00:00:00 Abstract Tasha Marroquin [facility] SURGICAL INSTRUMENT REPAIR SPECIALIST [facility] & CHILD [facility] 1.2.840.114 350.1.13.10 4.2.7.2.686 [id number] 107 [id number] [facility] 2020-12-15 00:00:00 2020-12-15 00:00:00 Abstract Tasha Marroquin [facility] SURGICAL INSTRUMENT REPAIR SPECIALIST [facility] CHILD [facility] 1.2.840.114 350.1.13.10 4.2.7.2.686 [id number] 107 [id number] [facility] 2020-12-14 11:14:56 2020-12-14 11:59:56 Contract Administrative Assistant Visit Ultrasound, Luis Li [facility] SURGICAL INSTRUMENT REPAIR SPECIALIST [facility] & CHILD [facility] 1.2.840.114 350.1.13.10 4.2.7.2.686 [id number] [facility] 2020-12-14 11:14:56 2020-12-14 11:59:56 Contract Administrative Assistant Visit Ultrasound, GarlandLinda Lorenzo [facility] SURGICAL INSTRUMENT REPAIR SPECIALIST [facility] & CHILD [facility] 1.2.840.114 350.1.13.10 4.2.7.2.686 [id number] [facility] 2020-12-14 11:15:00 2020-12-14 11:59:29 Outpatient P KEENAN LI [facility] [id number] [facility] 2020-12-14 11:15:00 2020-12-14 11:15:00 Outpatient P [facility] [id number] [facility] 2020-12-04 14:16:32 2020-12-04 15:01:55 Routine Visit Tasha Marroquin [facility] SURGICAL INSTRUMENT REPAIR SPECIALIST [facility] MATERNAL & CHILD [facility] 1.2840.114 350.1.13.10 4.2.7.2.686 [id number] [facility] 2020-12-04 14:16:32 2020-12-04 15:01:55 Routine Visit Tasha Marroquin [facility] SURGICAL INSTRUMENT REPAIR SPECIALIST [facility] & CHILD [facility] 1.84.114 350.1.13.10 4.2.7.2.686 [id number] [facility] 2020-12-04 14:15:00 2020-12-04 15:01:55 Outpatient R TASHA MARROQUIN [facility] [id number] [facility] 2020-12-04 14:15:00 2020-12-04 14:15:00 Outpatient R TASHA MARROQUIN [facility] [id number] [facility] 2020-11-21 00:00:00 2020-11-21 00:00:00 Telephone Tasha Marroquin [facility] SURGICAL INSTRUMENT REPAIR SPECIALIST [facility] & CHILD [facility] 1.840.114 350.1.13.10 4.2.7.2.686 [id number] [facility] 2020-11-13 11:15:00 2020-11-13 11:18:43 Outpatient P HELADIO RESENDEZ [facility] [id number] [facility] 2020-11-13 10:50:36 2020-11-13 11:18:43 Office Visit Hattie Barragan Joseph W [facility] SURGICAL INSTRUMENT REPAIR SPECIALIST [facility] MATERNAL & [facility] 1.2.840.114 350.1.13.10 4.2.7.2.686 [id number] [facility] 2020-11-13 11:15:00 2020-11-13 11:15:00 Outpatient P MALHELADIO [facility] [id number] [facility] 2020-11-09 00:00:00 2020-11-09 00:00:00 Abstract Tasha Marroquin [facility] SURGICAL INSTRUMENT REPAIR SPECIALIST [facility] & CHILD [facility] 1..840.114 350.1.13.10 4.2.7.2.686 [id number] [facility] 2020-11-08 13:00:00 2020-11-08 14:21:18 Outpatient P ALBERTO GUPTA [facility] [id number] [facility] 2020-11-08 12:58:45 2020-11-08 14:13:45 Contract Administrative Assistant Visit Ultrasound, Alberto Bass [facility] 1..840.114 350.1.13.10 4.2.7.2.686 [id number] [facility] 2020-11-08 13:00:00 2020-11-08 13:00:00 Outpatient P [facility] [id number] [facility] 2020-11-06 15:49:14 2020-11-06 16:22:03 Routine Visit Tasha Marroquin [facility] 1..840.114 350.1.13.10 4.2.7.2.686 [id number] [facility] 2020-11-06 15:45:00 2020-11-06 16:22:03 Outpatient R TASHA MARROQUIN [facility] [id number] [facility] 2020-11-06 15:45:00 2020-11-06 15:45:00 Outpatient R TASHA MARROQUIN [facility] [id number] [facility] 2020-11-06 00:00:00 2020-11-06 00:00:00 Orders Only Doctor Unassigned, Hauser [facility] 1..840.114 350.1.13.10 4.2.7.2.686 [id number] [facility] 2020-11-03 09:45:00 2020-11-03 09:45:00 Outpatient P [facility] [id number] [facility] 2020-11-03 09:45:00 2020-11-03 09:45:00 Outpatient P [facility] [id number] [facility] 2020-11-03 00:00:00 2020-11-03 00:00:00 Telephone Hattie Barragan [facility] SPECIALTY [facility] 1..840.114 350.1.13.10 4.2.7.2.686 [id number] [facility] 2020-10-12 10:45:00 2020-10-12 10:45:00 Outpatient R TASHA MARROQUIN [facility] [id number] [facility] 2020-10-09 15:03:05 2020-10-09 15:48:42 Routine Visit Tasha Marroquin [facility] SURGICAL INSTRUMENT REPAIR SPECIALIST [facility] MATERNAL & [facility] 1..840.114 350.1.13.10 4.2.7.2.686 [id number] [facility] 2020-10-09 15:00:00 2020-10-09 15:48:42 Outpatient R TASHA MARROQUIN [facility] [id number] [facility] 2020-10-09 15:00:00 2020-10-09 15:00:00 Outpatient R TASHA MARROQUIN [facility] [id number] [facility] 2020-09-25 13:08:12 2020-09-25 13:48:39 Contract Administrative Assistant Visit 3, [facility] 1.84.114 350.1.13.10 4.2.7.2.686 [id number] [facility] 2020-09-25 13:00:00 2020-09-25 13:48:39 Outpatient P TESFAYE PALMER SHANNON [facility] [id number] [facility] 2020-09-25 13:00:00 2020-09-25 13:00:00 Outpatient P [facility] [id number] [facility] 2020-09-25 00:00:00 2020-09-25 00:00:00 Abstract Tasha Marroquin [facility] SURGICAL INSTRUMENT REPAIR SPECIALIST [facility] & CHILD [facility] .840.114 350.1.13.10 4.2.7.2.686 [id number] [facility] 2020-09-14 08:00:00 2020-09-14 08:38:22 Outpatient R TASHA MARROQUIN [facility] [id number] [facility] 2020-09-14 08:05:03 2020-09-14 08:20:03 Routine Visit Tasha Marroquin [facility] SURGICAL INSTRUMENT REPAIR SPECIALIST [facility] & CHILD [facility] .840.114 350.1.13.10 4.2.7.2.686 [id number] [facility] 2020-09-14 08:00:00 2020-09-14 08:00:00 Outpatient R TASHA MARROQUIN [facility] [id number] [facility] 2020-08-24 08:15:06 2020-08-24 08:44:28 Contract Administrative Assistant Visit Lab, Juanpablo [facility] SURGICAL INSTRUMENT REPAIR SPECIALIST [facility] & CHILD [facility] .840.114 350.1.13.10 4.2.7.2.686 [id number] 2020-08-24 08:15:06 2020-08-24 08:44:28 Contract Administrative Assistant Visit LabJuanpablo Tasha Marroquin Kelly [facility] SURGICAL INSTRUMENT REPAIR SPECIALIST [facility] MATERNAL & CHILD [facility] 1.2.840.114 350.1.13.10 4.2.7.2.686 [id number] [facility] 2020-08-24 08:00:00 2020-08-24 08:44:28 Outpatient R MELIDAERNESTOROMMELVESNATASHA [facility] [id number] [facility] 2020-08-24 08:00:00 2020-08-24 08:00:00 Outpatient R MELIDAERNESTOROMMELTASHA [facility] [id number] [facility] 2020-08-18 00:00:00 2020-08-18 00:00:00 Telephone MelidaTasha lopez Kelly [facility] SURGICAL INSTRUMENT REPAIR SPECIALIST [facility] & CHILD [facility] 1.2840.114 350.1.13.10 4.2.7.2.686 [id number] [facility] 2020-08-17 10:33:09 2020-08-17 11:32:56 Initial Visit MelidaTasha lopez Kelly [facility] SURGICAL INSTRUMENT REPAIR SPECIALIST [facility] & CHILD [facility] 1.2.840.114 350.1.13.10 4.2.7.2.686 [id number] [facility] 2020-08-17 10:00:00 2020-08-17 11:32:56 Outpatient R TASHA MARROQUIN [facility] [id number] [facility] 2020-08-17 09:30:00 2020-08-17 09:30:00 Outpatient R TASHA MARROQUIN [facility] [id number] [facility] 2020-08-17 00:00:00 2020-08-17 00:00:00 Orders Only Doctor Unassigned, Hauser [facility] 1.2840.114 350.1.13.10 4.2.7.2.686 [id number] [facility] Results Test Description Test Time Test Comments Results Result Co mments Source [facility] GLUCOSE (AUTOMATED)2024-01-08 21:26:41* Test Item Value Reference Range Interpretation Comme nts POCT GLU (test code = 0504472450) 97 mg/dL 70-110 Lab Interpretation (test cod e = 29348-2) Normal [facility] GLUCOSE (AUTOMATED)2024-01-08 14:53:05* Test Item Value Reference Range Interpretation Comme nts POCT GLU (test code = 5380526797) 95 mg/dL 70-110 Lab Interpretation (test cod e = 65246-5) Normal [facility] GLUCOSE (AUTOMATED)2024-01-08 14:53:05* Test Item Value Reference Range Interpretation Comme nts POCT GLU (test code = 8158751001) 95 mg/dL 70-110 Lab Interpretation (test cod e = 85738-1) Normal [facility] GLUCOSE (AUTOMATED)2024-01-08 11:54:37* Test Item Value Reference Range Interpretation Comme nts POCT GLU (test code = 0319762363) 93 mg/dL 70-110 Lab Interpretation (test cod e = 75510-1) Normal [facility] GLUCOSE (AUTOMATED)2024-01-08 11:54:37* Test Item Value Reference Range Interpretation Comme nts POCT GLU (test code = 1341340816) 93 mg/dL 70-110 Lab Interpretation (test cod e = 97202-8) Normal [facility] GLUCOSE (AUTOMATED)2024-01-07 22:51:34* Test Item Value Reference Range Interpretation Comme nts POCT GLU (test code = 7571872856) 168 mg/dL 70-110 H Lab Interpretation (test cod e = 17164-7) Abnormal [facility] GLUCOSE (AUTOMATED)2024-01-07 22:51:34* Test Item Value Reference Range Interpretation Comme nts POCT GLU (test code = 8183269299) 168 mg/dL 70-110 H Lab Interpretation (test cod e = 34030-9) Abnormal [facility] IMMUNE [id number] 17:38:26* Test Item Value Reference Range Interpretation Comme nts RHIG CANDIDATE? (test code = 5188) No- see comment Patient is not a candidate for RhIg- Patient is Rh Positive.Performed at [facility] Laboratory Services - [facility] Blood [address] [place] [address]Omog Free: [phone] No. [id number] [facility] (D) IMMUNE [id number] 17:38:26* Test Item Value Reference Range Interpretation Comme nts RHIG CANDIDATE? (test code = 5188) No- see comment Patient is not a candidate for RhIg- Patient is Rh Positive.Performed at [facility] Laboratory Services - [facility] Blood [address] [place] [address]Ausq Free: [phone] No. [id number] [facility] ONLY - SYPHILIS [id number]/[id number] 16:53:28* Test Item Value Reference Range Interpretation Comme [facility] Syphilis IgG/IgM (test code = 58536-9) Non-reactive Non-reactive JOHN (test code = JOHN) Non-reactive - No serologic evidence of T. pallidum infection. Cannot exclude incubating or early syphilis. Submit a second specimen in 2-4 weeks if syphilis is clinically suspected. Equivocal - Further testing to follow. Reactive - Further testing to follow. Lab Interpretation (test code = 44109-9) Normal [facility] ONLY - SYPHILIS [id number] 16:53:28* Test Item Value Reference Range Interpretation Comme [facility] Syphilis IgG/IgM (test code = 27229-4) Non-reactive Non-reactive JOHN (test code = JOHN) Non-reactive - No serologic evidence of T. pallidum infection. Cannot exclude incubating or early syphilis. Submit a second specimen in 2-4 weeks if syphilis is clinically suspected. Equivocal - Further testing to follow. Reactive - Further testing to follow. Lab Interpretation (test code = 00277-4) Normal [facility] Center[facility] Cord [id number] 15:43:55* Test Item Value Reference Range Interpretation Comme [facility] VENOUS BASE EXCESS, CORD (te st code = 5526894009) -3.1 mEq/L VENOUS PH, CORD (test code = 4217215081) 7.37 7.25-7.45 VENOUS PC02, CORD (test code = 8693652255) 39 27-49 VENOUS PO2, CORD (test code = 2733276853) 38 17-41 VENOUS BICARBONATE, CORD (te st code = 6742586669) 22 12- [facility] Center[facility] Cord [id number] 15:43:55* Test Item Value Reference Range Interpretation Comme [facility] VENOUS BASE EXCESS, CORD (te st code = 2650145045) -3.1 mEq/L VENOUS PH, CORD (test code = 6141493211) 7.37 7.25-7.45 VENOUS PC02, CORD (test code = 3407077601) 39 27-49 VENOUS PO2, CORD (test code = 7778596129) 38 17-41 VENOUS BICARBONATE, CORD (te st code = 4354638103) 22 12- [facility] CenterArterial Cord [id number] 15:42:59* Test Item Value Reference Range Interpretation Comme nts BASE EXCESS, CORD (test code = 8610520516) -5.0 mEq/L AC PH, CORD (BEAKER) (test c ode = 1944068374) 7.25 7.18-7.38 PC02, CORD (test code = 0049191832) 52 32-66 PO2, CORD (test code = 8688350103) 31 10-30 H BICARBONATE, CORD (test code = 3012305770) 23 17-27 Lab Interpretation (test cod e = 08633-3) Abnormal [facility] CenterArterial Cord [id number] 15:42:59* Test Item Value Reference Range Interpretation Comme nts BASE EXCESS, CORD (test code = 4709209109) -5.0 mEq/L AC PH, CORD (BEAKER) (test c ode = 2166871973) 7.25 7.18-7.38 PC02, CORD (test code = 2063711035) 52 32-66 PO2, CORD (test code = 3931715081) 31 10-30 H BICARBONATE, CORD (test code = 2219402437) 23 17-27 Lab Interpretation (test cod e = 23321-2) Abnormal [facility] GLUCOSE (AUTOMATED)2024-01-07 13:15:35* Test Item Value Reference Range Interpretation Comme [facility] POCT GLU (test code = 1843698856) 97 mg/dL 70-110 Lab Interpretation (test cod e = 69063-9) Normal [facility] GLUCOSE (AUTOMATED)2024-01-07 13:15:35* Test Item Value Reference Range Interpretation Comme nts POCT GLU (test code = 9556938350) 97 mg/dL 70-110 Lab Interpretation (test cod e = 42153-1) Normal [facility] GLUCOSE (AUTOMATED)2024-01-07 08:56:34* Test Item Value Reference Range Interpretation Comme nts POCT GLU (test code = 6781908070) 98 mg/dL 70-110 Lab Interpretation (test cod e = 58347-8) Normal [facility] GLUCOSE (AUTOMATED)2024-01-07 08:56:34* Test Item Value Reference Range Interpretation Comme nts POCT GLU (test code = 4574257642) 98 mg/dL 70-110 Lab Interpretation (test cod e = 79690-2) Normal [facility] GLUCOSE (AUTOMATED)2024-01-07 04:49:36* Test Item Value Reference Range Interpretation Comme nts POCT GLU (test code = 7303025585) 94 mg/dL 70-110 Lab Interpretation (test cod e = 92558-5) Normal [facility] GLUCOSE (AUTOMATED)2024-01-07 04:49:36* Test Item Value Reference Range Interpretation Comme nts POCT GLU (test code = 2588517563) 94 mg/dL 70-110 Lab Interpretation (test cod e = 64216-2) Normal [facility] GLUCOSE (AUTOMATED)2024-01-07 00:34:04* Test Item Value Reference Range Interpretation Comme nts POCT GLU (test code = 7595330884) 95 mg/dL 70-110 Lab Interpretation (test cod e = 53905-2) Normal [facility] GLUCOSE (AUTOMATED)2024-01-07 00:34:04* Test Item Value Reference Range Interpretation Comme nts POCT GLU (test code = 0077120809) 95 mg/dL 70-110 Lab Interpretation (test cod e = 02557-7) Normal [facility]HIV [facility]2 AG-AB WITH [id number] 00:00:19* Test Item Value Reference Range Interpretation Comme nts HIV Semi-quantitative (test code = 01361-5) 0.11 Negative JOHN (test code = JOHN) Non-reactive for HIV-1 antigen and HIV-1/HIV-2 antibodies. ?No laboratory evidence of HIV infection. ?Repeat in 2-4 weeks if acute HIV infection is suspected. [facility] CenterHIV [facility]2 AG-AB WITH [id number] 00:00:19* Test Item Value Reference Range Interpretation Comme nts HIV Semi-quantitative (test code = 52819-2) 0.11 Negative JOHN (test code = JOHN) Non-reactive for HIV-1 antigen and HIV-1/HIV-2 antibodies. ?No laboratory evidence of HIV infection. ?Repeat in 2-4 weeks if acute HIV infection is suspected. [facility] CenterHepatitis B Surface [id number] 23:15:08 * Test Item Value Reference Range Interpretation Comme nts HBsAg Semi-Quantitative (becki t code = 5195-3) 0.35 Negative [facility] B Surface [id number] 23:15:08 * Test Item Value Reference Range Interpretation Comme nts HBsAg Semi-Quantitative (becki t code = 5195-3) 0.[address] [facility] CenterCBC with [id number] 22:09:58* Test Item Value Reference Range Interpretation Comme nts WBC (test code = 6690-2) 7.89 4.30-11.10 RBC (test code = 789-8) 3.86 3.93-5.25 L HGB (test code = 718-7) 10.5 g/dL 11.6-15.0 L HCT (test code = 4544-3) 32.0 % 35.7-45.2 L MCV (test code = 787-2) 82.9 fL 80.6-95.5 MCH (test code = 785-6) 27.2 pg 25.9-32.8 MCHC (test code = 786-4) 32.8 g/dL 31.6-35.1 RDW-SD (test code = 24764-7) 40.0 fL 39.0-49.9 RDW-CV (test code = 788-0) 13.4 % 12.0-15.5 PLT (test code = 777-3) 215 166-358 MPV (test code = 86677-8) 12.9 fL 9.5-12.9 NRBC/100 WBC (test code = 9503407456) 0.0 0.0-10.0 NRBC x10^3 (test code = 4008877758) See_Comment [Automated messa ge] The system which generated this result transmitted reference range: 10*3/?L. The reference range was not used to interpret this result as normal/abnormal. GRAN MAT (NEUT) % (test code = 770-8) 70.6 % IMM GRAN % (test code = 5281068822) 0.50 % LYMPH % (test code = 736-9) 22.6 % MONO % (test code = 5905-5) 5.8 % EOS % (test code = 713-8) 0.4 % BASO % (test code = 706-2) 0.1 % GRAN MAT x10^3(ANC) (test code = 2945094575) 5.57 10*3/uL 1.88-7.09 IMM GRAN x10^3 (test code = [id number]) 0.04 10*3/uL 0.00-0.06 LYMPH x10^3 (test code = 731-0) 1.78 10*3/uL 1.32-3.29 MONO x10^3 (test code = 742-7) 0.46 10*3/uL 0.33-0.92 EOS x10^3 (test code = 711-2) 0.03 10*3/uL 0.03-0.39 BASO x10^3 (test code = 704-7) 0.01-0.07 Lab Interpretation (test code = 71205-3) Abnormal [facility] with [id number] 22:09:58* Test Item Value Reference Range Interpretation Comme nts WBC (test code = 6690-2) 7.89 4.30-11.10 RBC (test code = 789-8) 3.86 3.93-5.25 L HGB (test code = 718-7) 10.5 g/dL 11.6-15.0 L HCT (test code = 4544-3) 32.0 % 35.7-45.2 L MCV (test code = 787-2) 82.9 fL 80.6-95.5 MCH (test code = 785-6) 27.2 pg 25.9-32.8 MCHC (test code = 786-4) 32.8 g/dL 31.6-35.1 RDW-SD (test code = 21289-2) 40.0 fL 39.0-49.9 RDW-CV (test code = 788-0) 13.4 % 12.0-15.5 PLT (test code = 777-3) 215 166-358 MPV (test code = 13397-0) 12.9 fL 9.5-12.9 NRBC/100 WBC (test code = 7977691191) 0.0 0.0-10.0 NRBC x10^3 (test code = 5025131375) See_Comment [Automated messa ge] The system which generated this result transmitted reference range: 10*3/?L. The reference range was not used to interpret this result as normal/abnormal. GRAN MAT (NEUT) % (test code = 770-8) 70.6 % IMM GRAN % (test code = 4450595701) 0.50 % LYMPH % (test code = 736-9) 22.6 % MONO % (test code = 5905-5) 5.8 % EOS % (test code = 713-8) 0.4 % BASO % (test code = 706-2) 0.1 % GRAN MAT x10^3(ANC) (test code = 8992026458) 5.57 10*3/uL 1.88-7.09 IMM GRAN x10^3 (test code = 2041017804) 0.04 10*3/uL 0.00-0.06 LYMPH x10^3 (test code = 731-0) 1.78 10*3/uL 1.32-3.29 MONO x10^3 (test code = 742-7) 0.46 10*3/uL 0.33-0.92 EOS x10^3 (test code = 711-2) 0.03 10*3/uL 0.03-0.39 BASO x10^3 (test code = 704-7) 0.01-0.07 Lab Interpretation (test code = 56777-7) Abnormal [facility] Branch[facility] and Screen - ONCE [id number] 22:03:00 * Test Item Value Reference Range Interpretation Comme nts ABO & RH (test code = 20) A POSITIVE IAT (test code = 1185) Negative [facility] BranchType and Screen - ONCE [id number] 22:03:00 * Test Item Value Reference Range Interpretation Comme nts ABO & RH (test code = 20) A POSITIVE IAT (test code = 1185) Negative [facility] GLUCOSE (AUTOMATED)2024-01-06 20:24:02* Test Item Value Reference Range Interpretation Comme nts POCT GLU (test code = 0694745279) 113 mg/dL 70-110 H Lab Interpretation (test cod e = 22002-3) Abnormal [facility] GLUCOSE (AUTOMATED)2024-01-06 20:24:02* Test Item Value Reference Range Interpretation Comme nts POCT GLU (test code = 8923408668) 113 mg/dL 70-110 H Lab Interpretation (test cod e = 09674-2) Abnormal [facility] URINALYSIS W SPECIFIC [id number] 15:45:00* Test Item Value Reference Range Interpretation Comme nts POCT U SP GRAV (test code = 3255) . 1.005-1.025 POCT PH U (test code = 3254) 5 mg/dl 5-8 POCT U LEUK EST (test [...] POCT U APPEAR (test code = 3267) .. [facility] URINALYSIS W SPECIFIC [id number] 19:40:00* Test Item Value Reference Range Interpretation Comme [...] POCT U APPEAR (test code = 3267) ... [facility] URINALYSIS W SPECIFIC [id number] 19:04:00* Test Item Value Reference Range Interpretation [...] U APPEAR (test code = 3267) . [facility] URINALYSIS W SPECIFIC [id number] 13:16:00* Test Item Value Reference Range Interpretation [...] POCT U APPEAR (test code = 3267) [facility] URINALYSIS W SPECIFIC [id number] 13:38:00* Test Item Value Reference Range Interpretation [...] U APPEAR (test code = 3267) . [facility] URINALYSIS W SPECIFIC [id number] 15:15:00* Test Item Value Reference Range Interpretation [...] U APPEAR (test code = 3267) . [facility] URINALYSIS W SPECIFIC [id number] 18:11:00* Test Item Value Reference Range Interpretation [...] POCT U APPEAR (test code = 3267) [facility] URINALYSIS W SPECIFIC [id number] 14:00:00* Test Item Value Reference Range Interpretation [...] POCT U APPEAR (test code = 3267) [facility] [id number] 14:40:00* Test Item Value Reference Range Interpretation [...] U APPEAR (test code = 3267) .... [facility] [id number] 01:13:49* Test Item Value Reference Range Interpretation Comme nts URIC ACID (test code = 6582217707) 3.2 mg/dL 2.9-6.0 Lab Interpretation (test cod e = 20146-1) Normal [facility] [id number] 01:13:49* Test Item Value Reference Range Interpretation Comme nts CREATININE (test code = 2160-0) 0.33 mg/dL 0.50-1.04 L eGFR (test code = 59425-8) 149.6 mL/min/1.73m2 CKD-EPI eGFR (2020). Assuming creatinine has been stable day-to-day for at least three months, the eGFR indicates Category G1 (>= 90 mL/min/1.73 m2) Lab Interpretation (test code = 96781-5) Abnormal [facility]ASPARTATE AMINO TRANSFER)2023-09-10 01:13:49* Test Item Value Reference Range Interpretation Comme nts AST(SGOT) (test code = 9846998819) 17 U/L 13-40 Lab Interpretation (test cod e = 44277-9) Normal [facility]AL[facility] AMINO TRANSFERASE([id number] 01:13:49* Test Item Value Reference Range Interpretation Comme nts ALTv (test code = 1742-6) 14 U/L 5-35 Lab Interpretation (test cod e = 13101-2) Normal [facility] CenterLACT[facility] [id number] 01:13:08* Test Item Value Reference Range Interpretation Comme nts LDH (test code = 4270597588) 197 U/L 120-246 Lab Interpretation (test cod e = 99179-8) Normal [facility]CB WITH [id number] 00:54:23* Test Item Value Reference Range Interpretation [...] 34.5 g/dL 31.6-35.1 RDW-SD (test code = 72808-6) 41.3 fL 39.0-49.9 RDW-CV (test code = 788-0) 12.7 % 12.0-15.5 PLT (test code = 777-3) 245 166-358 MPV (test code = 11612-9) 11.3 fL 9.5-12.9 NRBC/100 WBC (test code = 4772846866) 0.0 0.0-10.0 NRBC x10^3 (test code = 2015290525) See_Comment [Automated messa ge] The system which generated this result transmitted reference range: 10*3/?L. The reference range was not used to interpret this result as normal/abnormal. GRAN MAT (NEUT) % (test code = 770-8) 68.6 % IMM GRAN % (test code = 8417302161) 0.60 % LYMPH % (test code = 736-9) 23.4 % MONO % (test code = 5905-5) 6.3 % EOS % (test code = 713-8) 0.8 % BASO % (test code = 706-2) 0.3 % GRAN MAT x10^3(ANC) (test code = 0396527424) 6.72 10*3/uL 1.88-7.09 IMM GRAN x10^3 (test code = 2846946978) 0.06 10*3/uL 0.00-0.06 LYMPH x10^3 (test code = 731-0) 2.29 10*3/uL 1.32-3.29 MONO x10^3 (test code = 742-7) 0.62 10*3/uL 0.33-0.92 EOS x10^3 (test code = 711-2) 0.08 10*3/uL 0.03-0.39 BASO x10^3 (test code = 704-7) 0.03 10*3/uL 0.01-0.07 Lab Interpretation (test code = 06988-7) Abnormal [facility] GLUCOSE (AUTOMATED)2023-09-10 00:30:01* Test Item Value Reference Range Interpretation Comme nts POCT GLU (test code = 7941397123) 72 mg/dL 70-110 Lab Interpretation (test cod e = 71441-0) Normal [facility] URINALYSIS W SPECIFIC [id number] 20:15:00* Test Item Value Reference Range Interpretation [...] POCT U APPEAR (test code = 3267) [facility] URINALYSIS W SPECIFIC [id number] 20:15:00* Test Item Value Reference Range Interpretation [...] POCT U APPEAR (test code = 3267) [facility] URINALYSIS W SPECIFIC [id number] 15:45:00* Test Item Value Reference Range Interpretation [...] U APPEAR (test code = 3267) . [facility] URINALYSIS W SPECIFIC [id number] 15:03:00* Test Item Value Reference Range Interpretation [...] POCT U APPEAR (test code = 3267) [facility] URINALYSIS W SPECIFIC [id number] 15:03:00* Test Item Value Reference Range Interpretation [...] POCT U APPEAR (test code = 3267) [facility] HR GLUCOSE TOLERANCE [id number] 04:03:52 * Test Item Value Reference Range Interpretation Comme nts GLUC 2 HR (test code = 0273400435) 181 mg/dL 70-120 H Lab Interpretation (test cod e = 50195-7) Abnormal [facility] [id number] 15:04:00* Test Item Value Reference Range Interpretation Comme nts POCT PREG (test code = 1605) Positive On board controls acceptable with C Line (test code = 3574) Yes POCT PREG LOT # (test code = 3575) POCT PREG TEST DATE ( test code = 357) [facility] Urinalysis w/o Specific [id number] 15:04:00* Test Item Value Reference Range Interpretation [...] = 3257) trace Negative - Negati ve [facility] [id number] 15:04:00* Test Item Value Reference Range Interpretation Comme nts POCT PREG (test code = 1605) Positive On board controls acceptable with C Line (test code = 3574) Yes POCT PREG LOT # (test code = 3575) POCT PREG TEST DATE ( test code = 3576) [facility] w/o Specific [id number] 15:04:00* Test Item Value Reference Range Interpretation [...] = 3257) trace Negative - Negati ve [facility] CenterCT/NG, NAAT, [id number] 19:58:11* Test Item Value Reference Range Interpretation Comme nts CHLAMYDIA, NAAT, URINE (test code = 18267) NEGATIVE NEGATIVE Testing is perfo rmed with Jami MELISSA 6800/8800 systems usingreal-time polymerase chain reaction (PCR) method. A negative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
[2024-05-05] MEDS ORDERED: METOCLOPRAMIDE 10 MG/2mL INJ ONE (22:49)
[2024-05-05] MEDS ORDERED: NA CHLORIDE 0.9% 1,000 ML ONE (22:49)
[2024-05-05] MEDS ORDERED: DIPHENHYDRAMINE 50 MG/ML VIAL ONE (22:49)
[2024-05-05 22:53] LABS: Absolute Eosinophils 0.1 K/uL (0-0.5); Absolute Lymphocytes (CBC) 2.7 K/uL (0.7-4.9); Absolute Monocytes 0.4 K/uL (0.1-1.3); Absolute Neutrophil 4.4 K/uL (1.8-8.0); Basophils % 0.4 % (0-1.3); Eosinophils % 1.8 % (0-4.4); Hematocrit 37.6 % (36.0-45.0); Hemoglobin 12.6 g/dL (12.0-15.0); Lymphocytes % 35.5 % (15.3-44.8); MCH 28.1 pg (27.0-35.0); MCHC 33.4 g/dL (32.0-36.0); MCV 84.2 fL (80-100); MPV 9.4 fL (7.6-11.3); Neutrophils % 57.3 % (41.7-73.7); Nucleated Red Blood Cells % 0.2 % (0-0); Platelets 287 thou/uL (152-406); RBC Red Blood Cell Count 4.47 M/uL (3.86-4.86); Red Cell Distribution Width 13.3 % (12.1-15.2)
[2024-05-05 23:09] LABS: ALT/SGPT 30 U/L (13-56); AST/SGOT 17 U/L (15-37); Albumin 3.6 g/dL (3.4-5.0); Albumin/Globulin Ratio 0.8 (1.1-1.8); Alkaline Phosphatase 78 U/L (45-117); Anion Gap 9.6 mEq/L (5.0-15.0); BUN Blood Urea Nitrogen 13 mg/dL (7-18); Bicarbonate 22 mEq/L (21-32); Globulin 4.3 g/dL (2.3-3.5); Glomerular Filtration Rate 130 ml/min (=/>90); Glucose Level 100 mg/dL (74-106); Potassium 3.6 mEq/L (3.5-5.1); Protein, Total 7.9 g/dL (6.4-8.2); Sodium Level 137 mEq/L (136-145)
[2024-05-05 23:15] LABS: Bilirubin Total < 0.2 mg/dL (0.2-1.0)
[2024-05-05 23:18] LABS: SARS-CoV-2 Antigen CONTROL BLUE LINE VIS/BG OK; SARS-CoV-2 Antigen Rapid Res Negative (Negative)
--- NOTE | 2024-05-06 02:12 | ER ---
Nurse's Notes [facility] Name: Sweta Carter Age: 23 yrs Sex: Female : 2000 Arrival Date: 05/05/2024 Time: 21:47 Bed 11 Private MD: Diagnosis: Headache Presentation: 05/05 22:01 Chief complaint: Patient states: I have had a bad headache like migraine headache since bm8 this morning. Coronavirus screen: At this time, the client does not indicate any symptoms associated with coronavirus-19. Ebola Screen: Patient negative for fever greater than or equal to 101.5 degrees Fahrenheit, and additional compatible Ebola Virus Disease symptoms Patient denies exposure to infectious person. Patient denies travel to an Ebola-affected area in the 21 days before illness onset. No symptoms or risks identified at this time. Initial Sepsis Screen: Does the patient meet any 2 criteria? No. Patient's initial sepsis screen is negative. Does the patient have a suspected source of infection? No. Patient's initial sepsis screen is negative. Risk Assessment: Do you want to hurt yourself or someone else? Patient reports no desire to harm self or others. Onset of symptoms was May 05, 2024 at 08:00. 22:01 Method Of Arrival: Ambulatory 8 22:01 Acuity: RUTHIE 3 bm8 Triage Assessment: 22:03 Headache History: The patient has had previous headaches and this one is similar to bm8 previous episodes. General: Appears in no apparent distress. comfortable, Behavior is calm, cooperative. Pain: Complains of pain in Head Pain currently is 8 out of 10 on a pain scale. Pain began 1 day ago. Also complains of inability to concentrate. EENT: No deficits noted. No signs and/or symptoms were reported regarding the EENT system. 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 Full function Gait is steady, Speech is normal, Facial symmetry appears normal, Pupils are PERRLA, Intact. Cardiovascular: Denies chest pain, Capillary refill < 3 seconds in bilateral fingers Patient's skin is warm and dry. Respiratory: Airway is patent Respiratory effort is even, unlabored, Respiratory pattern is regular, symmetrical. GI: No deficits noted. No signs and/or symptoms were reported involving the gastrointestinal system. : No deficits noted. No signs and/or symptoms were reported regarding the genitourinary system. Derm: No deficits noted. No signs and/or symptoms reported regarding the dermatologic system. Musculoskeletal: No deficits noted. No signs and/or symptoms reported regarding the musculoskeletal system. 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 - Infectious Disease History:: Denies. - Social history:: Smoking status: Patient denies any tobacco usage or history of. Screenin:30 [facility] ED Fall Risk Assessment (Adult) History of falling in the last 3 months, jb4 including since admission No falls in past 3 months (0 pts) Confusion or Disorientation No (0 pts) Intoxicated or Sedated No (0 pts) Impaired Gait No (0 pts) Mobility Assist Device Used No (0 pt) Altered Elimination No (0 pt) Score/Fall Risk Level 0 - 2 = Low Risk Oriented to surroundings, Maintained a safe environment. Abuse screen: Denies threats or abuse. Nutritional screening: No deficits noted. Tuberculosis screening: No symptoms or risk factors identified. Assessment: 23:45 Reassessment: Patient appears in no apparent distress at this time. Patient and/or jb4 family updated on plan of care and expected duration. Pain level reassessed. Patient is alert, oriented x 3, equal unlabored respirations, skin warm/dry/pink. Patient states feeling better. 05/06 02:00 Reassessment: Patient and/or family updated on plan of care and expected duration. Pain ha1 level reassessed. Patient is alert, oriented x 3, equal unlabored respirations, skin warm/dry/pink. Patient denies pain at this time. Patient states feeling better. Patient states symptoms have improved. Vital Signs: 05/05 22:01 BP 140 / 111; Pulse 77; Resp 16; Temp 98.1; Pulse Ox 99% ; Weight 72.57 kg; Height 5 bm8 ft. 3 in. ; Pain 8/10; 23:46 BP 123 / 89; Pulse 55; Resp 16; Pulse Ox 99% on R/A; jb4 05/06 02:20 BP 124 / 87; Pulse 61; Resp 17 S; Temp 98.1(T); Pulse Ox 100% on R/A; ha1 05/05 22:01 Body Mass Index 28.34 (72.57 kg, 160.02 cm) 8 05/05 22:01 Pain Scale: Adult bm8 [place] Coma Score: 02:35 Eye Response: spontaneous(4). Motor Response: obeys commands(6). Verbal Response: dr5 oriented(5). Total: 15. ED Course: 05/05 21:50 Patient arrived in ED. gm2 21:55 Mario Gabriel, [facility]5 21:55 Tru Toure MD is Attending Physician. dr5 22:03 Triage completed. bm8 22:03 Arm band placed on right wrist. bm8 22:30 Patient has correct armband on for positive identification. Bed in low position. Call jb4 light in reach. Side rails up X 1. Provided Education on: plan of care. 22:45 Inserted. Inserted saline lock: 20 gauge in right in left antecubital area, using rk3 aseptic technique. 22:46 Initial lab(s) drawn, by me, sent to lab. rk3 23:21 CT Head Brain wo Cont In Process Unspecified. EDMS 23:45 Jacinto Hedrick, RN is Primary Nurse. 4 05/06 02:20 No provider procedures requiring assistance completed. ha1 02:20 IV discontinued, intact, bleeding controlled, No redness/swelling at site. Pressure ha1 dressing applied. Administered Medications: 05/05 22:59 Drug: NS 0.9% IV 1000 ml IV at 1000 ml once; to be given as a bolus over 60 minutes jb4 Route: IV; Rate: 1000 ml; Site: left antecubital; 05/06 02:20 Follow up: Response: No adverse reaction; IV Status: Completed infusion; IV Intake: ha1 1000ml 05/05 22:59 Drug: diphenhydrAMINE IVP 25 mg IVP once Route: IVP; Site: left antecubital; jb4 23:47 Follow up: Response: No adverse reaction; Marked relief of symptoms; Pain is decreased jb4 22:59 Drug: metoCLOPramide IVP 10 mg IVP once; over 1 to 2 minutes Route: IVP; Site: left jb4 antecubital; 23:48 Follow up: Response: No adverse reaction; Marked relief of symptoms; Pain is decreased jb4 Medication: 05/06 02:20 VIS not applicable for this client. ha1 Intake: 02:20 IV: 1000ml; Total: 1000ml. ha1 Outcome: 02:11 Discharge ordered by . christal 02:20 Discharged to home ambulatory, with family, ha1 02:20 Condition: improved 02:20 Discharge instructions given to patient, Instructed on discharge instructions, follow up and referral plans. Demonstrated understanding of instructions, follow-up care, 02:20 Patient left the ED. ha1 Signatures: Dispatcher [employer] EDMS Jacinto Hedrick RN RN jb4 Mayela Ozuna RN RN ha1 Christel Cartwright 2 Yunier Guzman RN RN bm8 Mario Gabriel, [employer]-C [employer]-Cdr5 Luis F Monae rk3 Corrections: (The following items were deleted from the chart) 02:58 02:58 Patient left the ED. ha1 ha1
--- NOTE | 2024-05-06 02:12 | EDPHYS ---
Physician Documentation [facility] Name: Sweta Carter Age: 23 yrs Sex: Female : 2000 Arrival Date: 05/05/2024 Time: 21:47 Bed 11 Private MD: ED Physician Tru Toure HPI: 05/06 02:35 This 23 yrs old Female presents to ER via Ambulatory with complaints of dr5 Headache. 02:35 Patient is a 23-year-old female with history of diabetes and hypertension coming in dr5 with headache that started this morning. Patient denies polyuria, polydipsia, polyphagia. Patient reports this is a headache that she has had in the past and not the worst headache in her life. Patient states she was here before and had some medications. Patient is also requesting CT of her head.. 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 - Infectious Disease History:: Denies. - Social history:: Smoking status: Patient denies any tobacco usage or history of. ROS: 05/06 02:35 Constitutional: as per hpi dr5 Exam: 02:35 Constitutional: This is a well developed, well nourished patient who is awake, alert, dr5 and in no acute distress. Head/Face: Normocephalic, atraumatic. Eyes: Pupils equal round and reactive to light, extra-ocular motions intact. Lids and lashes normal. Conjunctiva and sclera are non-icteric and not injected. Cornea within normal limits. Periorbital areas with no swelling, redness, or edema. ENT: Nares patent. No nasal discharge, no septal abnormalities noted. Tympanic membranes are normal and external auditory canals are clear. Oropharynx with no redness, swelling, or masses, exudates, or evidence of obstruction, uvula midline. Mucous membranes moist. Chest/axilla: Normal chest wall appearance and motion. Nontender with no deformity. No lesions are appreciated. Cardiovascular: Regular rate and rhythm with a normal S1 and S2. Normal PMI, no JVD. No pulse deficits. Respiratory: Lungs have equal breath sounds bilaterally, clear to auscultation. No rales, rhonchi or wheezes noted. No increased work of breathing, no retractions or nasal flaring. Abdomen/GI: Soft, non-tender, non-distended Skin: Warm, dry with normal turgor. Normal color with no rashes, no lesions, and no evidence of cellulitis. MS/ Extremity: Pulses equal, no cyanosis. Neurovascular intact. Full, normal range of motion. Neuro: Awake and alert, GCS 15, oriented to person, place, time, and situation. Cranial nerves II-XII grossly intact. Motor strength 5/5 in all extremities. Sensory grossly intact. Cerebellar exam normal. Normal gait. Psych: Awake, alert, with orientation to person, place and time. Behavior, mood, and affect are within normal limits. Vital Signs: 05/05 22:01 BP 140 / 111; Pulse 77; Resp 16; Temp 98.1; Pulse Ox 99% ; Weight 72.57 kg; Height 5 bm8 ft. 3 in. ; Pain 8/10; 23:46 BP 123 / 89; Pulse 55; Resp 16; Pulse Ox 99% on R/A; jb4 05/06 02:20 BP 124 / 87; Pulse 61; Resp 17 S; Temp 98.1(T); Pulse Ox 100% on R/A; ha1 05/05 22:01 Body Mass Index 28.34 (72.57 kg, 160.02 cm) bm8 05/05 22:01 Pain Scale: Adult bm8 [place] Coma Score: 02:35 Eye Response: spontaneous(4). Motor Response: obeys commands(6). Verbal Response: dr5 oriented(5). Total: 15. MDM: 05/05 21:56 Medical Screening Exam initiated dr5 05/06 02:35 Differential diagnosis: Migraine, cluster headache, ICH. Data reviewed: vital signs, dr5 nurses notes, radiologic studies, CT scan. I considered the following discharge prescriptions or medication management in the emergency department Medications were administered in the Emergency Department. See MAR. Care significantly affected by the following chronic conditions: Diabetes, Hypertension. Care significantly affected by the following Social Determinants of Health: Poor access to healthcare and/or lack of insurance, Poor access to transportation, Problems related to employment. Counseling: I had a detailed discussion with the patient and/or guardian regarding the historical points, exam findings, and any diagnostic results supporting the discharge/admit diagnosis, the presence of at least one elevated blood pressure reading (>120/80) during this emergency department visit, lab results, radiology results, the need for outpatient follow up, for definitive care, a family practitioner, a neurologist, to return to the emergency department if symptoms worsen or persist or if there are any questions or concerns that arise at home. Medication response: Cheo Marks NS. Response to treatment: the patient's symptoms have resolved after treatment. ED course: Had long discussion with patient regarding CT scan. Recommended not getting a CT scan of her head given radiation and normal neurological exam. Patient is insistent that she has a scan today. Printed out results for patient and gave to her to take to neurology for her follow-up. Recommended increased hydration, alternate Tylenol and Motrin as needed for pain. All questions answered. Patient is well-appearing on discharge. 05/05 22:06 Order name: SARS RAPID; Complete Time: 23:20 [facility] 05/05 22:06 Order name: Influenza Screen (a \T\ B); Complete Time: 23:45 [facility] 05/05 22:06 Order name: Strep [facility] 05/05 22:23 Order name: CBC with Diff; Complete Time: 22:54 [facility] 05/05 22:23 Order name: CMP; Complete Time: 23:15 [facility] 05/05 23:21 Order name: Throat Culture [facility] 05/05 22:22 Order name: CT Head Brain wo Cont dr5 Administered Medications: 05/05 22:59 Drug: NS 0.9% IV 1000 ml IV at 1000 ml once; to be given as a bolus over 60 minutes jb4 Route: IV; Rate: 1000 ml; Site: left antecubital; 05/06 02:20 Follow up: Response: No adverse reaction; IV Status: Completed infusion; IV Intake: ha1 1000ml 05/05 22:59 Drug: diphenhydrAMINE IVP 25 mg IVP once Route: IVP; Site: left antecubital; jb4 23:47 Follow up: Response: No adverse reaction; Marked relief of symptoms; Pain is decreased jb4 22:59 Drug: metoCLOPramide IVP 10 mg IVP once; over 1 to 2 minutes Route: IVP; Site: left jb4 antecubital; 23:48 Follow up: Response: No adverse reaction; Marked relief of symptoms; Pain is decreased jb4 Disposition Summary: 05/06/24 02:11 Discharge Ordered Notes: Location: Home dr5 Condition: Stable dr5 Diagnosis - Headache dr5 Followup: dr5 - With: Emergency Department - When: As needed - Reason: Worsening of condition Followup: dr5 - With: Private Physician - When: 1 - 2 days - Reason: Recheck today's complaints, Continuance of care, Re-evaluation by your physician Discharge Instructions: - Discharge Summary Sheet dr5 - Migraine Headache dr5 Forms: - Medication Reconciliation Form dr5 - Patient Portal Instructions dr5 - Leadership Thank You Letter dr5 Addendum: 05/07/2024 13:01 Co-signature as Attending Physician, Tru Toure MD I agree with the assessment and c oh plan of care. Signatures: Dispatcher [employer] EDTru Al MD MD cha Bryson, James RN RN jb4 Yunier Guzman RN RN bm8 Mario Gabriel, [employer] PAVER OPERATOR-C [employer] P[employer] OPERATOR-Cdr5 Mayela Ozuna RN ha1
--- NOTE | 2024-05-06 02:12 | RAD REPORT ---
PROCEDURE: CT Head Without Intravenous Contrast CLINICAL INDICATION: The patient is 23 years old and is Female; Headache. TECHNIQUE: Axial computed tomography images of the head/brain without intravenous contrast. Sagittal and coron al reformatted images were created and reviewed. This CT exam was performed using one or more of the following dose reduction techniques: automated exposure control, adjustment of the mA and/or kV according to patient size, and/or use of iterative reconstruction technique. COMPARISON: CT Head 06/05/2019. FINDINGS: BRAIN: No extra-axial fluid collection. No intracranial hemorrhage. No transtentorial herniation. N o focal mello-white matter differentiation abnormality. MIDLINE SHIFT: None. VENTRICLES: Unremarkable No ventriculomegaly. BONES/JOINTS: Leftward nasal septal deviation and small leftward nasal septal spur, which nearly co ntacts the left lateral wall of the nasal cavity. SOFT TISSUES: Unremarkable SINUSES: No masses, bony erosion or evidence of acute sinusitis. MASTOID AIR CELLS: Unremarkable as visualized. No mastoid effusion. IMPRESSION: 1. No acute intracranial abnormality. No fracture of the calvarium or visualized facial bones. 2. Leftward nasal septal deviation and small leftward nasal septal spur, which nearly contacts the left lateral wall of the nasal cavity. Electronically signed by: Boo Wall MD 05/05/2024 11:59 PM [facility]3] Due to temporary technical issues with the PACS/MessageGate reporting system, reports are being greg d by the in-house radiologist without review as a courtesy to ensure prompt reporting the interpreting radiologist is fully responsible for the content of the report. Transcribed Date/Time: 05/06/2024 2:12 AM
[2024-05-06 11:51] VITALS: TEMP 98.1
[2024-05-06 12:05] VITALS: BP 124/87; O2SAT 100
== END 2024-05-06 02:58 | disposition home or self-care (01) ==
LOC: ER 21:47
DX: R51.9 Headache, unspecified (principal); E11.9 Type 2 diabetes mellitus without complications; I10 Essential (primary) hypertension; Z11.52 Encounter for screening for COVID-19
CPT/HCPCS: 96361; 87070; 85025; 36415; 87081; 80053; 87804 ×2; 70450; 96375; 96374; 99284; 87811; J2765; J1200; J7030